=== PATIENT | male | born 1955 | race Caucasian/White ===

== ENCOUNTER → 2023-08-22 10:19 | Outpatient (CLI) | payer MEDICARE, SELFPAY ==
--- NOTE | 2023-08-22 10:22 | DI.RAD.S_ITS ---
PROCEDURE: XR CHEST 2V INDICATIONS: unexplained weight loss, loud murmur, chest congestion TECHNIQUE: 2 views of the chest were acquired. COMPARISON: None. FINDINGS: Surgical changes and devices: None. Lungs and pleura: Chronic bilateral pulmonary interstitial infiltrates present. Pleural spaces clear Mediastinum: Mediastinal contours are normal. Heart size is normal. Bones and chest wall: No suspicious bony abnormalities. Soft tissues appear unremarkable. IMPRESSION: Chronic bilateral pulmonary infiltrates. Primary differential includes atypical infection. Approved by: Walter Horowitz M.D. on 08/22/2023 at 19:41
[2023-08-22 11:43] LABS: Add Manual Diff / Slide Review NO; Basophils Absolute Auto 0 /uL (0-100); Basophils Percent Auto 0.5 % (0-2); Eosinophils Absolute Auto 0 /uL (0-450); Eosinophils Percent Auto 0.4 % (2-4); Hematocrit 22.7 % (41-53); Hemoglobin 7.6 g/dL (13.5-17.5); Lymphocytes Absolute Auto 1800 /uL (1100-4500); Lymphocytes Percent Auto 19.9 % (25-40); Mean Corpuscular HGB Conc 33.7 % (30-36); Mean Corpuscular Hemoglobin 29.5 PG (26-34); Mean Corpuscular Volume 87.4 fL (80-100); Monocytes Absolute Auto 600 /uL (0-900); Monocytes Percent Auto 6.5 % (3-14); Neutrophils Absolute Auto 6500 /uL (1500-7000); Neutrophils Percent Auto 72.7 % (50-75); Platelet Count 66 X10^3/uL (150-400); Red Blood Cell Count 2.59 X10^6/uL (4.5-5.9); Red Cell Distribution Width 16.1 % (11.6-14.8)
[2023-08-22 12:02] LABS: Alanine Aminotransferase 11 IU/L (<50); Albumin 2.5 g/dL (3.5-5.0); Albumin Globulin Ratio 0.6 (1.0-2.8); Alkaline Phosphatase 70 U/L (38-126); Aspartate Aminotransferase 20 IU/L (17-59); BUN Creatinine Ratio 15.6 (6-22); Bilirubin Total 1.3 mg/dL (0.2-1.3); Blood Urea Nitrogen 71 mg/dL (9-20); Calcium 7.9 mg/dL (8.4-10.2); Carbon Dioxide 28 mmol/L (22-32); Chloride 102 mmol/L (98-107); Estimated Glomerular Filt Rate 13 mL/min (>60); Globulin 4.4 g/dL (1.7-4.1); Glucose 120 mg/dL (80-110); HEMOLYSIS < 15 (0-50); Potassium 3.2 mmol/L (3.4-5.1); Sodium 136 mmol/L (137-145); Total Protein 6.9 g/dL (6.3-8.2)
[2023-08-22 12:08] LABS: NT-proBNP (BNP-Adult 18+) 12500 pg/mL (<125)
[2023-08-22 12:27] LABS: TSH w/ Reflex to FT4 1.35 uIU/mL (0.47-4.68)
[2023-08-22 12:29] LABS: Prostate Specific Antigen Scrn 0.315 ng/mL (0.1-4.0)
== END ==
PROVIDERS: Physician Assistant; Referring Provider Nurse Practitioner Family; Visit Provider Nurse Practitioner Family
DX: R91.8 Other nonspecific abnormal finding of lung field (principal); R63.4 Abnormal weight loss; R05.9 Cough, unspecified; Z12.5 Encounter for screening for malignant neoplasm of prostate
CPT/HCPCS: 36415; 71046; 80053; 83880; 84443; 85025; G0103

== ENCOUNTER 2023-08-22 13:13 | Emergency (ER) | payer MEDICARE, SELFPAY ==
[2023-08-22] VITALS (22 sets, daily range): BP systolic 120–147; BP diastolic 66–81; PULSE 77–90; RESP 18–37; TEMP 36.4; O2SAT 83–100; BMI 21.1
--- NOTE | 2023-08-22 13:25 | ED_ITS ---
HPI - General Adult <Gin Fishman MD - Last Filed: 09/13/23 18:00> General Chief complaint: Recheck/Abnormal Lab/Rx Stated complaint: Wt loss, new anemia, high bnp Time Seen by Provider: 08/22/23 13:24 History of Present Illness HPI narrative: 68-year-old gentleman presents with fatigue, weight loss and general malaise. He has not seen a physician in a number of years. Currently on no medications he notes that over the last few months he lost 20 lb but when his realized he was not eating as much because of decreased appetite. When she began to insist that he more food he says that he is gained 10 lb. He reports exertional dyspnea notes that he is having trouble walking up the stairs which is unusual for him. He has not complaining of chest pain. He is found that he has been sleeping on more pillows but did not specifically noticed that until asked. States that he has a chronic cough that has not changed. 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 He notes no nausea vomiting diarrhea. He has had no black stools. He notes that his legs are significantly more edematous and when question response that yes there is a rash that seems to be progressing up his legs. It is painless. He has not been having fevers or chills Related Data Home Medications Medication Instructions Recorded Confirmed acetaminophen 325 mg tablet 325 mg PO PRN PRN pain 09/08/23 09/08/23 amiodarone 400 mg tablet 400 mg PO BID 09/08/23 09/08/23 calcium acetate(phosphat bind) 667 667 mg PO 3XD 09/08/23 09/08/23 mg capsule calcium carbonate 200 mg calcium 500 mg PO PRN PRN Acid Reflux 09/08/23 09/08/23 (500 mg) chewable tablet (Antacid (calcium carbonate)) ceftriaxone 2 gram intravenous 2 g IV DAILY 09/08/23 09/08/23 piggyback furosemide 20 mg tablet 20 mg PO DAILY 09/08/23 09/08/23 metoprolol succinate 25 mg 25 mg PO DAILY 09/08/23 09/08/23 tablet,extended release 24 hr ondansetron 4 mg disintegrating 4 mg PO Q6H PRN Nausea And Vomiting 09/08/23 09/08/23 tablet tamsulosin 0.4 mg capsule 0.4 mg PO DAILY 09/08/23 09/08/23 vitamin B comp no.3-folic acid 1 1 tab PO QPM 09/08/23 09/08/23 mg-vit C 60 mg-biotin 300 mcg tablet ([facility]) Allergies Allergy/AdvReac Type Severity Reaction Status Date / Time No Known Drug Allergies Allergy Verified 08/22/23 13:23 Review of Systems <Gin Fishman MD - Last Filed: 09/13/23 18:00> Review of Systems Narrative: Pertinent positive and negative findings as per HPI Patient History <Gin Fishman MD - Last Filed: 09/13/23 18:00> Medical History (Updated 09/10/23 @ 12:28 by Rosendo Lemos MD) History of transesophageal echocardiography ([facility]) Endocarditis CHF (congestive heart failure) Anemia Social History household members: spouse and children Smoking Status: Never smoker alcohol intake: never Exam <Gin Fishman MD - Last Filed: 09/13/23 18:00> Initial Vital Signs Initial Vital Signs: Vital Signs Temperature 97.6 F 08/22/23 13:23 Pulse Rate 87 08/22/23 13:23 Respiratory Rate 18 08/22/23 13:23 Blood Pressure 138/76 08/22/23 13:23 Pulse Oximetry 100 08/22/23 13:23 Oxygen Delivery Method Room Air 08/22/23 13:23 General: Chronically ill-appearing, cachectic, in no acute distress. Able to give a complete and coherent history. HEENT: Moist mucous membranes, normal sclera with reactive pupils, Neck: + JVD, supple Respiratory: Lungs with minor basilar crackles, no rhonchi, no wheezing, no accessory muscle use Cardiac: Regular rate and rhythm, 5/6 holosystolic murmur with a palpable thrill Abdomen: Soft, scaphoid, nontender, good bowel tones, no flank pain Skin: Petechial rash over lower extremities, nonblanching, nonpruritic Neurologic: Grossly neurologically intact with no obvious asymmetries or abnormalities Extremities: 3+ bilateral lower extremity edema Psych: Cooperative, appropriate insight and affect <Rowdy Nj DO - Last Filed: 08/22/23 21:39> Initial Vital Signs Initial Vital Signs: Vital Signs Temperature 97.6 F 08/22/23 13:23 Pulse Rate 87 08/22/23 13:23 Respiratory Rate 18 08/22/23 13:23 Blood Pressure 138/76 08/22/23 13:23 Pulse Oximetry 100 08/22/23 13:23 Oxygen Delivery Method Room Air 08/22/23 13:23 Course <Gin Fishman MD - Last Filed: 09/13/23 18:00> Orders Ordered: Discontinued Medications Lidocaine HCl (Lidocaine 2% (Glydo) 6 Ml Gel) 6 ml TOP NOW ONE Stop: 08/22/23 18:49 Last Admin: 08/22/23 19:11 Dose: 6 ml Documented By: NORM Vital Signs Vital signs: Vital Signs - 8 hr 08/22/23 14:00 08/22/23 14:00 08/22/23 14:30 Pulse Rate 80 Respiratory Rate 26 H Blood Pressure 120/68 140/77 Pulse Oximetry 100 Oxygen Delivery Method 08/22/23 14:30 08/22/23 14:48 08/22/23 14:48 Pulse Rate 89 85 Respiratory Rate 28 H 27 H Blood Pressure 142/79 H Pulse Oximetry 100 83 L Oxygen Delivery Method 08/22/23 15:00 08/22/23 15:00 08/22/23 15:30 Pulse Rate 83 Respiratory Rate 29 H Blood Pressure 127/66 135/74 Pulse Oximetry 98 Oxygen Delivery Method 08/22/23 15:30 08/22/23 16:00 08/22/23 16:00 Pulse Rate 77 78 Respiratory Rate 24 28 H Blood Pressure 137/73 Pulse Oximetry 100 98 Oxygen Delivery Method 08/22/23 16:30 08/22/23 16:30 08/22/23 17:00 Pulse Rate 84 Respiratory Rate 30 H Blood Pressure 147/77 H 139/73 Pulse Oximetry 100 Oxygen Delivery Method Room Air 08/22/23 17:00 08/22/23 17:30 08/22/23 17:30 Pulse Rate 79 85 Respiratory Rate 26 H 27 H Blood Pressure 138/76 Pulse Oximetry 100 100 Oxygen Delivery Method 08/22/23 18:00 08/22/23 18:00 03/26/24 18:30 Pulse Rate 82 90 Respiratory Rate 30 H 29 H Blood Pressure 144/69 H Pulse Oximetry 99 Oxygen Delivery Method 08/22/23 19:00 08/22/23 19:07 08/22/23 19:07 Pulse Rate 87 84 Respiratory Rate 30 H 24 Blood Pressure 143/71 H Pulse Oximetry 99 99 Oxygen Delivery Method 08/22/23 19:30 08/22/23 19:30 08/22/23 20:00 Pulse Rate 83 83 Respiratory Rate 20 24 Blood Pressure 135/71 Pulse Oximetry 99 100 Oxygen Delivery Method 08/22/23 20:00 08/22/23 20:30 08/22/23 20:30 Pulse Rate 79 Respiratory Rate 20 Blood Pressure 137/72 124/67 Pulse Oximetry 100 Oxygen Delivery Method 08/22/23 21:00 08/22/23 21:00 Pulse Rate 80 Respiratory Rate 24 Blood Pressure 125/67 Pulse Oximetry 99 Oxygen Delivery Method <Rowdy Nj DO - Last Filed: 08/22/23 21:39> Orders Ordered: Discontinued Medications Lidocaine HCl (Lidocaine 2% (Glydo) 6 Ml Gel) 6 ml TOP NOW ONE Stop: 08/22/23 18:49 Last Admin: 08/22/23 19:11 Dose: 6 ml Documented By: NORM Vital Signs Vital signs: Vital Signs - 8 hr 08/22/23 14:00 08/22/23 14:00 08/22/23 14:30 Pulse Rate 80 Respiratory Rate 26 H Blood Pressure 120/68 140/77 Pulse Oximetry 100 Oxygen Delivery Method 08/22/23 14:30 08/22/23 14:48 08/22/23 14:48 Pulse Rate 89 85 Respiratory Rate 28 H 27 H Blood Pressure 142/79 H Pulse Oximetry 100 83 L Oxygen Delivery Method 08/22/23 15:00 08/22/23 15:00 08/22/23 15:30 Pulse Rate 83 Respiratory Rate 29 H Blood Pressure 127/66 135/74 Pulse Oximetry 98 Oxygen Delivery Method 08/22/23 15:30 08/22/23 16:00 08/22/23 16:00 Pulse Rate 77 78 Respiratory Rate 24 28 H Blood Pressure 137/73 Pulse Oximetry 100 98 Oxygen Delivery Method 08/22/23 16:30 08/22/23 16:30 08/22/23 17:00 Pulse Rate 84 Respiratory Rate 30 H Blood Pressure 147/77 H 139/73 Pulse Oximetry 100 Oxygen Delivery Method Room Air 08/22/23 17:00 08/22/23 17:30 08/22/23 17:30 Pulse Rate 79 85 Respiratory Rate 26 H 27 H Blood Pressure 138/76 Pulse Oximetry 100 100 Oxygen Delivery Method 08/22/23 18:00 08/22/23 18:00 08/22/23 18:30 Pulse Rate 82 90 Respiratory Rate 30 H 29 H Blood Pressure 144/69 H Pulse Oximetry 99 Oxygen Delivery Method 08/22/23 19:00 08/22/23 19:07 08/22/23 19:07 Pulse Rate 87 84 Respiratory Rate 30 H 24 Blood Pressure 143/71 H Pulse Oximetry 99 99 Oxygen Delivery Method 08/22/23 19:30 08/22/23 19:30 08/22/23 20:00 Pulse Rate 83 83 Respiratory Rate 20 24 Blood Pressure 135/71 Pulse Oximetry 99 100 Oxygen Delivery Method 08/22/23 20:00 08/22/23 20:30 08/22/23 20:30 Pulse Rate 79 Respiratory Rate 20 Blood Pressure 137/72 124/67 Pulse Oximetry 100 Oxygen Delivery Method 08/22/23 21:00 08/22/23 21:00 Pulse Rate 80 Respiratory Rate 24 Blood Pressure 125/67 Pulse Oximetry 99 Oxygen Delivery Method Medical Decision Making <Gin Fishman MD - Last Filed: 09/13/23 18:00> Lab Data Labs: Lab Results 08/22/23 Range/Units 18:46 Urine Color Brown Urine Appearance Cloudy Urine pH 5.0 (4.5-8.0) Ur Specific [place] 1.010 (1.000-1.035) Urine Protein 1+ H (Negative) Urine Glucose (UA) Negative (Negative) g/dL Urine Ketones Negative (NEGATIVE) Urine Occult Blood 3+ H (Negative) Urine Nitrate Negative (Negative) Urine Bilirubin Negative (NEGATIVE) Urine Urobilinogen 0.2 (0.2) E.U./dL Ur Leukocyte Esterase Negative (NEGATIVE) Urine RBC 10-30/hpf H (0-5/HPF) Urine WBC 1-5/hpf (0-5/HPF) Ur Squamous Epith Cells 0-1 /hpf (0-5/HPF) Urine Bacteria Few (2-10) H (None) Urine Yeast 5-10/hpf H (None) Ur Culture Indicated? Specimen cultured Vol Urine Centrifuged 10ml (spun) Imaging Data CT chest/abd/pelvis withou contrast: Radiologist's Impression: PROCEDURE: CT CHEST ABD PEL WO CON INDICATIONS: weight loss, new heart failure, new renal failure TECHNIQUE: After the administration of oral contrast, 5 mm thick sections acquired from the lung apices to the symphysis pubis. 5 mm thick coronal and sagittal reformats acquired, with additional 7 mm coronal MIP reformats through the lungs. For radiation dose reduction, the following was used: automated exposure control, adjustment of mA and/or kV according to patient size. COMPARISON: None. FINDINGS: Image quality: Diagnostic. CHEST: Lower Neck: No enlarged lymph nodes. Thyroid: No thyroid nodules which require sonographic follow up, per consensus guidelines. Axillae: No enlarged lymph nodes. Chest Wall: Unremarkable. Bones: Unremarkable. Lungs and Pleura: Predominantly peripheral reticular opacities are present bilaterally suggestive of chronic interstitial change/possibly fibrosis. There are superimposed areas of nodular and confluent opacities bilaterally. No priors are available for comparison. No effusions. Heart: Heart size is enlarged. No pericardial effusion. Thoracic Vessels: The aorta and pulmonary arteries demonstrate normal size. Mediastinum and Betsy: No enlarged lymph nodes. However, exam is markedly limited secondary to lack of IV contrast. Esophagus: No wall thickening. Minimal hiatal hernia. ABDOMEN: Liver: Liver measures 17.8 cm. Liver appears coarsened appearance without discrete nodularity. Gallbladder: Gallbladder is contracted limiting evaluation. Biliary ducts: No biliary dilation. Pancreas: No ductal dilation. Spleen: Spleen measures 15.8 cm. Adrenal Glands: No adrenal nodules. Kidneys and Ureters: No hydronephrosis. No solid mass. No complex renal cystic lesion which requires follow up. Stomach and Bowel: Normal colonic caliber, without significant wall thickening. Peritoneum: Significant abdominal pelvic ascites including perihepatic and pe risplenic fluid. No free air. Ventral Wall: No hernia. Abdominal Nodes: No retroperitoneal or mesenteric adenopathy by size criteria. Vessels: Aorta and inferior vena cava are normal in size. PELVIS: Pelvic Organs: Unremarkable. Bladder: Unremarkable. Pelvic Nodes: No enlarged lymph nodes. Miscellaneous: No inguinal hernias are seen. Bones: No aggressive osseous abnormality. IMPRESSION: Markedly limited exam secondary to lack of oral and IV contrast. Chronic interstitial pulmonary disease as described above. Superimposed areas of nodularity/opacities are present. These may represent airspace disease such as pneumonia/atelectasis including atypical infection. Recommend interval follow up after appropriate therapy to document resolution exclude presence of underlying mass lesion of more aggressive etiology. Prominent abdominal and pelvic ascites. Dictated by: Susan Hinojosa M.D. on 08/22/2023 at 15:12 Echocardiogram: Radiologist's Impression: Echocardiogram Report + + :Name: KIA SOTO Study Date: 08/22/2023 Height: 66 in : :[facility] ReadingLocation: Weight: 130 lb : : Gender: Male BSA: 1.7 m2 : :: 1955 Age: 68 yrs BP: 127/66 mmHg: :Reason For Study: NEW CONGESTIVE HEART FAILURE, NEW HEART : :MUMUR : :Ordering Physician: SRAVANTHI, : :GIN Goodrich Performed By: Hedy Oconnell : :Referring: GIN FISHMAN : + + Interpretation Summary The left ventricle is moderately dilated. The ejection fraction is estimated to be 40-45%. Grade II diastolic dysfunction. The left atrium is severely dilated. The right ventricle is normal in size and function. There is prolapse of the posterior mitral valve leaflet(s). There is severe mitral regurgitation. There is mild aortic regurgitation. There is mild tricuspid regurgitation. The right ventricular systolic pressure is estimated to be at least 33 mmHg based on an estimated right atrial pressure of 3 mm Hg. There is a trivial pericardial effusion noted. Left pleurral effusion also noted. Procedure: A two-dimensional transthoracic echocardiogram with color flow and Doppler was performed. The study quality was technically good. There is no prior echocardiogram noted for this patient. The heart rate ranged between 78- 94 bpm during the study. Left Ventricle: The left ventricle is moderately dilated. There is normal left ventricular wall thickness. The ejection fraction is estimated to be 40- 45%. Diastolic parameters suggest a pseudonormalization pattern, consistent with probable elevated filling pressures. Right Ventricle: The right ventricle is normal in size and function. Atria: The left atrium is severely dilated. Right atrial size is normal. There is no Doppler evidence for an interatrial shunt. Mitral Valve: The mitral leaflets appear thickened, hooded, and/or redundant, consistent with myxomatous degeneration. There is prolapse of the posterior mitral valve leaflet(s). There is severe mitral regurgitation. The mitral regurgitant jet is eccentrically directed. Aortic Valve: The aortic valve is trileaflet. The aortic valve opens well. There is no aortic valve stenosis. There is mild aortic regurgitation. Tricuspid Valve: The tricuspid valve is not well visualized, but is grossly normal. There is mild tricuspid regurgitation. The right ventricular systolic pressure is estimated to be at least 33 mmHg based on an estimated right atrial pressure of 3 mm Hg. Pulmonic Valve: The pulmonic valve leaflets are thin and pliable; valve motion is normal. There is mild pulmonic regurgitation. Great Vessels: The aortic root is normal size. The dimensions of the ascending aorta are normal. The IVC is of normal diameter and collapses greater than 50% with a sniff. This suggests a low right atrial pressure of 3 mm Hg. Pericardium/ Pleura There is a trivial pericardial effusion noted. Left pleurral effusion also noted. MMode/2D Measurements & Calculations LVIDd: 6.6 cm LVOT diam: 2.0 cm LVIDs: 4.8 cm Ao root diam: 3.1 cm FS: 26.7 % asc Aorta Diam: 3.6 cm IVSd: 0.85 cm Ao Arch Diam (Prox Trans): 3.2 cm LVPWd: 0.50 cm LV mendes. diameter/BSA (cm/m^2): 3.9 LV sys. diameter/BSA (cm/m^2): 2.9 LA A2 area: 35.8 cm2 RA long axis: 4.8 cm LA A4 area: 27.6 cm2 RA area: 13.1 cm2 LA length (vol): 6.1 cm RA vol: 30.2 ml LA vol: 137.2 ml RA : 18.1 ml/m2 LA vol index: 82.4 ml/m2 IVC diam: 1.3 cm RVD1 (basal): 3.7 cm RVD2 (mid): 3.4 cm TAPSE: 1.7 cm Doppler Measurements & Calculations Ao V2 max: 163.7 cm/sec LVOT Max Helio: 92.1 cm/sec Ao V2 mean: 108.2 cm/sec LV V1 max P.4 mmHg Ao max P.7 mmHg LV V1 VTI: 16.0 cm Ao mean P.4 mmHg TSERING(I,D): 1.7 cm2 Ao V2 VTI: 28.1 cm TSERING(V,D): 1.7 cm2 sev ratio: 0.57 TSERING indexed to BSA (cm^2/m^2): 1.0 MV E max helio: 151.5 cm/sec TR max helio: 271.4 cm/sec MV A max helio: 96.0 cm/sec TR max P.5 mmHg MV E/A: 1.6 PA V2 max: 116.3 cm/sec Med Peak E' Helio: 7.6 cm/sec PA V2 mean: 89.2 cm/sec E/E' med: 20.0 PA mean P.4 mmHg Lat Peak E' Helio: 14.9 cm/sec PA pr(Accel): 32.8 mmHg E/E' lat: 10.2 E/e' average: 15.1 MV dec time: 0.16 sec MVA(VTI): 1.4 cm2 MR ERO: 0.58 cm2 MV V2 mean: 76.9 cm/sec MR PISA: 7.7 cm2 MV mean P.8 mmHg MR flow rate: 358.9 cm3/sec MV V2 VTI: 34.2 cm MR PISA radius: 1.1 cm SV(LVOT): 48.3 ml [facility] Narrative Medical decision making narrative: CC: Fatigue, lower extremity edema, weight loss Complicating co-morbidities: Minimal recent interaction with the medical community Data collected from: patient Medical records reviewed: Records are available Differential considered: Cancer, metastatic cancer, leukemia, heart failure with valve dysfunction Exam documented above, pertinent findings include: Alert, appropriate, cachectic, 5/6 systolic murmur with a palpable thrill, mild bibasilar crackles, significant lower extremity edema with petechiae, no significant abdominal pain or distention Lab Test results independently reviewed as above. Pertinent findings: CBC shows a normal white count, H and H are 7.6 and 22.7 with a normal MCV. RDW is high. Platelets are low at 66 Chemistries show potassium low at 3.2, acute renal failure at 4.5 with a BUN of 7.1 GFR of 13. Calcium is slightly low at 7.9 Parker/AST/ALT/alk-phos are all appropriate TSH is appropriate at 1.35 PSA is normal at 0.315 [place] [address] Independently reviewed EKG: Sinus rhythm at a rate of 90 without ischemic changes. Normal intervals, normal axis Imaging studies independently reviewed: Chest x-ray is consistent with mild cardiomegaly and interstitial fluid/no pleural effusion, consistent with heart failure Echocardiogram obtained in the ER shows an ejection fraction at 40-45% with a dilated left ventricle, prolapse of the posterior mitral valve with severe mitral regurgitation, mild aortic and tricuspid regurgitation. Incidentally noted left pleural effusion. CT chest/abd/pelvis w/o contrast due to the new acute renal failure: Chronic interstitial pulmonary disease with peripheral reticular opacities bilaterally suggestive of chronic interstitial changes/possibly fibrosis. Superimposed areas of nodular and confluent opacities bilaterally no effusions. No pathologic adenopathy, no masses or dramatic abnormalities appreciated within the abdomen aside from significant abdominal and pelvic ascites including perihepatic and perisplenic fluid. There is no free air. Consultations: Discussion with Dr. Rojas, hospitalist regarding initial studies and potential for [facility] admission(patient would very much prefer this) versus need for transfer. Will obtain a stat echocardiogram and CT scan of the chest abdomen pelvis without contrast and discuss findings with him again. But given concern for failure secondary to possible mitral valve acute abnormalities we will need hospital with higher level of care and additional medical consultation services available. 615pm Discussed with Dr Dean, cardiology. Given the renal failure, heart failure and minimal symptoms her recommendations were to continue with no specific intervention at this time until he is admitted to the hospital to which he will be transferred [facility] may have beds available. Spoke with Dr. Hough, Cardiology, who agrees he will consult. Will talk with the hospitalist team for admission Treatments: Rajput catheter secondary to postvoid residual of greater than 500 cc Re-evaluations: Discussion: 1. Acute CHF, BNP >12,000 Not requiring oxygen 2. Severe caroline regurgitation with prolapsed posterior mitral valve 3. acute renal failure with creatinine 4.55. K=3.2 will not need emergent dialysis 4. anemia with thrombocytopenia (WBC=9.0) uncertain etiology. Petechial rash LEs 5. 20lb wt loss last months, with 10lb weight gain (along with presumed CHF e xacerbation, likely all secondary to fluid) 6. BPH with urinary retention, post Rajput catheter placement Will need transfer to facility with cardiology, cardiac surgery, nephrology, and possibly oncology consultation with tele bed. Currently no respiratory support with oxygen saturations 100% on room air, no significant hypotension or pressors. <Rowdy Nj, - Last Filed: 08/22/23 21:39> Lab Data Lab results reviewed: Yes I reviewed the patient's lab results. Labs: Lab Results 08/22/23 Range/Units 18:46 Urine Color Brown Urine Appearance Cloudy Urine pH 5.0 (4.5-8.0) Ur Specific [place] 1.010 (1.000-1.035) Urine Protein 1+ H (Negative) Urine Glucose (UA) Negative (Negative) g/dL Urine Ketones Negative (NEGATIVE) Urine Occult Blood 3+ H (Negative) Urine Nitrate Negative (Negative) Urine Bilirubin Negative (NEGATIVE) Urine Urobilinogen 0.2 (0.2) E.U./dL Ur Leukocyte Esterase Negative (NEGATIVE) Urine RBC 10-30/hpf H (0-5/HPF) Urine WBC 1-5/hpf (0-5/HPF) Ur Squamous Epith Cells 0-1 /hpf (0-5/HPF) Urine Bacteria Few (2-10) H (None) Urine Yeast 5-10/hpf H (None) Ur Culture Indicated? Specimen cultured Vol Urine Centrifuged 10ml (spun) MDM Narrative Medical decision making narrative: CC: Fatigue, lower extremity edema, weight loss Complicating co-morbidities: Minimal recent interaction with the medical community Data collected from: patient Medical records reviewed: Records are available Differential considered: Cancer, metastatic cancer, leukemia, heart failure with valve dysfunction Exam documented above, pertinent findings include: Alert, appropriate, cachectic, 5/6 systolic murmur with a palpable thrill, mild bibasilar crackles, significant lower extremity edema with petechiae, no significant abdominal pain or distention Lab Test results independently reviewed as above. Pertinent findings: CBC shows a normal white count, H and H are 7.6 and 22.7 with a normal MCV. RDW is high. Platelets are low at 66 Chemistries show potassium low at 3.2, acute renal failure at 4.5 with a BUN of 7.1 GFR of 13. Calcium is slightly low at 7.9 Parker/AST/ALT/alk-phos are all appropriate TSH is appropriate at 1.35 PSA is normal at 0.315 [place] [address] Independently reviewed EKG: Sinus rhythm at a rate of 90 without ischemic changes. Normal intervals, normal axis Imaging studies independently reviewed: Chest x-ray is consistent with mild cardiomegaly and interstitial fluid/no pleural effusion, consistent with heart failure Echocardiogram obtained in the ER shows an ejection fraction at 40-45% with a dilated left ventricle, prolapse of the posterior mitral valve with severe mitral regurgitation, mild aortic and tricuspid regurgitation. Incidentally noted left pleural effusion. CT chest/abd/pelvis w/o contrast due to the new acute renal failure: Chronic interstitial pulmonary disease with peripheral reticular opacities bilaterally suggestive of chronic interstitial changes/possibly fibrosis. Superimposed areas of nodular and confluent opacities bilaterally no effusions. No pathologic adenopathy, no masses or dramatic abnormalities appreciated within the abdomen aside from significant abdominal and pelvic ascites including perihepatic and perisplenic fluid. There is no free air. Consultations: Discussion with Dr. Rojas, hospitalist regarding initial studies and potential for [facility] admission(patient would very much prefer this) versus need for transfer. Will obtain a stat echocardiogram and CT scan of the chest abdomen pelvis without contrast and discuss findings with him again. But given concern for failure secondary to possible mitral valve acute abnormalities we will need hospital with higher level of care and additional medical consultation services available. 615pm Discussed with Dr Dean, cardiology. Given the renal failure, heart failure and minimal symptoms her recommendations were to continue with no specific intervention at this time until he is admitted to the hospital to which he will be transferred [facility] beds available. Spoke with Dr. Hough, Cardiology, who agrees he will consult. Will talk with the hospitalist team for admission Treatments: Rajput catheter secondary to postvoid residual of greater than 500 cc Re-evaluations: Discussion: 1. Acute CHF, BNP >12,000 Not requiring oxygen 2. Severe caroline regurgitation with prolapsed posterior mitral valve 3. acute renal failure with creatinine 4.55. K=3.2 will not need emergent dialysis 4. anemia with thrombocytopenia (WBC=9.0) uncertain etiology. Petechial rash LEs 5. 20lb wt loss last months, with 10lb weight gain (along with presumed CHF exacerbation, likely all secondary to fluid) 6. BPH with urinary retention, post Rajput catheter placement Will need transfer to facility with cardiology, cardiac surgery, nephrology, and possibly oncology consultation with tele bed. Currently no respiratory support with oxygen saturations 100% on room air, no significant hypotension or pressors. Dr Nj: Received turned over. Review patient's history and physical and workup up to this point. Patient remains stable but does require transfer to facility with subspecialty care. Discussed the case with Dr. Teixeira hospitalist at [facility] who accepts the patient in transfer. Patient is stable for transport. Critical Care Time <Gin Fishman MD - Last Filed: 09/13/23 18:00> Critical Care Time Critical Care Time: Yes Total Critical Care Time: 47 Attestation: Critical care time is separate from other billable procedures. There is a high probability of a significant, sudden or life-threatening deterioration that requires my full and direct attention, intervention and personal management. This critical care time includes consultation with family and other consulting doctors, review of records, and interpretation of data from labs, EKGs and imaging as well as managements of multisystem organ failure with multiple c onsultations and coordination of care Discharge Plan Departure Patient Disposition: [facility] Clinical Impression: Mitral valve posterior leaflet prolapse, Anemia, BRYANNA (acute kidney injury), Severe mitral regurgitation, Acute CHF (congestive heart failure), Thrombocytopenia, Petechial rash, Abdominal ascites, Recent unexplained weight loss, Acute on chronic urinary retention Prescriptions: No Action amiodarone 400 mg tablet 400 mg PO BID calcium acetate(phosphat bind) 667 mg capsule 667 mg PO 3XD ceftriaxone 2 gram Piggyback 2 g IV DAILY furosemide 20 mg Tablet 20 mg PO DAILY metoprolol succinate 25 mg tablet extended release 24 hr 25 mg PO DAILY Rachel-Shira Rx 1-60-300 mg-mg-mcg tablet 1 tab PO QPM tamsulosin 0.4 mg capsule 0.4 mg PO DAILY acetaminophen 325 mg Tablet 325 mg PO PRN PRN (Reason: pain) calcium carbonate [Antacid (calcium carbonate)] 200 mg calcium (500 mg) Tablet,Chewable 500 mg PO PRN PRN (Reason: Acid Reflux) ondansetron 4 mg Tablet,Disintegrating 4 mg PO Q6H PRN (Reason: Nausea And Vomiting)
--- NOTE | 2023-08-22 14:34 | DI.ECHO.S_ITS ---
[facility]---------[facility] +---------+ : : [address] [place] [address] : : : : [id number] : : : : Phone: [phone]+ Echocardiogram Report + + :Name: KIA SOTO Study Date: 08/22/2023 Height: 66 in : :[facility] ReadingLocation: Weight: 130 lb : : Gender: Male BSA: 1.7 m2 : :: 1955 Age: 68 yrs BP: 127/66 mmHg: :Reason For Study: NEW CONGESTIVE HEART FAILURE, NEW HEART : :MUMUR : :Ordering Physician: SRAVANTHI, : :KYMBERLY Goodrich Performed By: Hedy Oconnell : :Referring: KYMBERLY FISHMAN : + + Interpretation Summary The left ventricle is moderately dilated. The ejection fraction is estimated to be 40-45%. Grade II diastolic dysfunction. The left atrium is severely dilated. The right ventricle is normal in size and function. There is prolapse of the posterior mitral valve leaflet(s). There is severe mitral regurgitation. There is mild aortic regurgitation. There is mild tricuspid regurgitation. The right ventricular systolic pressure is estimated to be at least 33 mmHg based on an estimated right atrial pressure of 3 mm Hg. There is a trivial pericardial effusion noted. Left pleurral effusion also noted. Procedure: A two-dimensional transthoracic echocardiogram with color flow and Doppler was performed. The study quality was technically good. There is no prior echocardiogram noted for this patient. The heart rate ranged between 78- 94 bpm during the study. Left Ventricle: The left ventricle is moderately dilated. There is normal left ventricular wall thickness. The ejection fraction is estimated to be 40- 45%. Diastolic parameters suggest a pseudonormalization pattern, consistent with probable elevated filling pressures. Right Ventricle: The right ventricle is normal in size and function. Atria: The left atrium is severely dilated. Right atrial size is normal. There is no Doppler evidence for an interatrial shunt. Mitral Valve: The mitral leaflets appear thickened, hooded, and/or redundant, consistent with myxomatous degeneration. There is prolapse of the posterior mitral valve leaflet(s). There is severe mitral regurgitation. The mitral regurgitant jet is eccentrically directed. Aortic Valve: The aortic valve is trileaflet. The aortic valve opens well. There is no aortic valve stenosis. There is mild aortic regurgitation. Tricuspid Valve: The tricuspid valve is not well visualized, but is grossly normal. There is mild tricuspid regurgitation. The right ventricular systolic pressure is estimated to be at least 33 mmHg based on an estimated right atrial pressure of 3 mm Hg. Pulmonic Valve: The pulmonic valve leaflets are thin and pliable; valve motion is normal. There is mild pulmonic regurgitation. Great Vessels: The aortic root is normal size. The dimensions of the ascending aorta are normal. The IVC is of normal diameter and collapses greater than 50% with a sniff. This suggests a low right atrial pressure of 3 mm Hg. Pericardium/ Pleura There is a trivial pericardial effusion noted. Left pleurral effusion also noted. MMode/2D Measurements & Calculations LVIDd: 6.6 cm LVOT diam: 2.0 cm LVIDs: 4.8 cm Ao root diam: 3.1 cm FS: 26.7 % asc Aorta Diam: 3.6 cm IVSd: 0.85 cm Ao Arch Diam (Prox Trans): 3.2 cm LVPWd: 0.50 cm LV mendes. diameter/BSA (cm/m^2): 3.9 LV sys. diameter/BSA (cm/m^2): 2.9 LA A2 area: 35.8 cm2 RA long axis: 4.8 cm LA A4 area: 27.6 cm2 RA area: 13.1 cm2 LA length (vol): 6.1 cm RA vol: 30.2 ml LA vol: 137.2 ml RA : 18.1 ml/m2 LA vol index: 82.4 ml/m2 IVC diam: 1.3 cm RVD1 (basal): 3.7 cm RVD2 (mid): 3.4 cm TAPSE: 1.7 cm Doppler Measurements & Calculations Ao V2 max: 163.7 cm/sec LVOT Max Helio: 92.1 cm/sec Ao V2 mean: 108.2 cm/sec LV V1 max P.4 mmHg Ao max P.7 mmHg LV V1 VTI: 16.0 cm Ao mean P.4 mmHg TSERING(I,D): 1.7 cm2 Ao V2 VTI: 28.1 cm TSERING(V,D): 1.7 cm2 sev ratio: 0.57 TSERING indexed to BSA (cm^2/m^2): 1.0 MV E max helio: 151.5 cm/sec TR max helio: 271.4 cm/sec MV A max helio: 96.0 cm/sec TR max P.5 mmHg MV E/A: 1.6 PA V2 max: 116.3 cm/sec Med Peak E' Helio: 7.6 cm/sec PA V2 mean: 89.2 cm/sec E/E' med: 20.0 PA mean P.4 mmHg Lat Peak E' Helio: 14.9 cm/sec PA pr(Accel): 32.8 mmHg E/E' lat: 10.2 E/e' average: 15.1 MV dec time: 0.16 sec MVA(VTI): 1.4 cm2 MR ERO: 0.58 cm2 MV V2 mean: 76.9 cm/sec MR PISA: 7.7 cm2 MV mean P.8 mmHg MR flow rate: 358.9 cm3/sec MV V2 VTI: 34.2 cm MR PISA radius: 1.1 cm SV(LVOT): 48.3 ml Reading Physician:04:38 PM
--- NOTE | 2023-08-22 14:34 | DI.CT.S_ITS ---
PROCEDURE: CT CHEST ABD PEL WO CON INDICATIONS: weight loss, new heart failure, new renal failure TECHNIQUE: After the administration of oral contrast, 5 mm thick sections acquired from the lung apices to the symphysis pubis. 5 mm thick coronal and sagittal reformats acquired, with additional 7 mm coronal MIP reformats through the lungs. For radiation dose reduction, the following was used: automated exposure control, adjustment of mA and/or kV according to patient size. COMPARISON: None. FINDINGS: Image quality: Diagnostic. CHEST: Lower Neck: No enlarged lymph nodes. Thyroid: No thyroid nodules which require sonographic follow up, per consensus guidelines. Axillae: No enlarged lymph nodes. Chest Wall: Unremarkable. Bones: Unremarkable. Lungs and Pleura: Predominantly peripheral reticular opacities are present bilaterally suggestive of chronic interstitial change/possibly fibrosis. There are superimposed areas of nodular and confluent opacities bilaterally. No priors are available for comparison. No effusions. Heart: Heart size is enlarged. No pericardial effusion. Thoracic Vessels: The aorta and pulmonary arteries demonstrate normal size. Mediastinum and Betsy: No enlarged lymph nodes. However, exam is markedly limited secondary to lack of IV contrast. Esophagus: No wall thickening. Minimal hiatal hernia. ABDOMEN: Liver: Liver measures 17.8 cm. Liver appears coarsened appearance without discrete nodularity. Gallbladder: Gallbladder is contracted limiting evaluation. Biliary ducts: No biliary dilation. Pancreas: No ductal dilation. Spleen: Spleen measures 15.8 cm. Adrenal Glands: No adrenal nodules. Kidneys and Ureters: No hydronephrosis. No solid mass. No complex renal cystic lesion which requires follow up. Stomach and Bowel: Normal colonic caliber, without significant wall thickening. Peritoneum: Significant abdominal pelvic ascites including perihepatic and perisplenic fluid. No free air. Ventral Wall: No hernia. Abdominal Nodes: No retroperitoneal or mesenteric adenopathy by size criteria. Vessels: Aorta and inferior vena cava are normal in size. PELVIS: Pelvic Organs: Unremarkable. Bladder: Unremarkable. Pelvic Nodes: No enlarged lymph nodes. Miscellaneous: No inguinal hernias are seen. Bones: No aggressive osseous abnormality. IMPRESSION: Markedly limited exam secondary to lack of oral and IV contrast. Chronic interstitial pulmonary disease as described above. Superimposed areas of nodularity/opacities are present. These may represent airspace disease such as pneumonia/atelectasis including atypical infection. Recommend interval follow up after appropriate therapy to document resolution exclude presence of underlying mass lesion of more aggressive etiology. Prominent abdominal and pelvic ascites. Dictated by: Susan Hinojosa M.D. on 08/22/2023 at 15:12 Approved by: Susan Hinojosa M.D. on 08/22/2023 at 15:18
--- NOTE | 2023-08-22 18:19 | PC.NURSE ---
Called [facility], spoke with Ryan about transfer. Beds are tight. Not cesar Called [facility], spoke to Sherrie, will call back. Called [facility], spoke with Raegan, will call back.
[2023-08-22 18:53] LABS: Bilirubin Urine UA NEGATIVE (NEGATIVE); Glucose Urine UA NEGATIVE (Negative); Ketones Urine UA NEGATIVE (NEGATIVE); Leukocyte Esterase Urine UA NEGATIVE (NEGATIVE); Nitrite Urine UA NEGATIVE (Negative); Occult Blood Urine UA 3+ (Negative); Protein Urine UA 1+ (Negative); Urobilinogen Urine UA 0.2 E.U./dL (0.2)
[2023-08-22 18:55] LABS: Appearance Urine UA CLOUDY; Color Urine UA BROWN
[2023-08-22 19:06] LABS: Bacteria Urine Few (2-10); RBC Urine 10-30/HPF (0-5/HPF); Squamous Epithelial Cell Urine 0-1 /HPF (0-5/HPF); Urine Volume 10mL (spun); WBC Urine 1-5/HPF (0-5/HPF)
[2023-08-22 19:07] LABS: Culture Indicated Urine Specimen Cultured
[2023-08-22] MEDS: LIDOCAINE 2% (GLYDO) 6 ML GEL TOP (19:11)
== END 2023-08-22 22:28 | disposition short-term general hospital (02) ==
PROVIDERS: Emergency Medicine; Emergency Provider Emergency Medicine
DX: I34.1 Nonrheumatic mitral (valve) prolapse (principal); N17.9 Acute kidney failure, unspecified; I34.0 Nonrheumatic mitral (valve) insufficiency; D69.6 Thrombocytopenia, unspecified; R63.4 Abnormal weight loss; Z68.21 Body mass index [BMI] 21.0-21.9, adult; R33.9 Retention of urine, unspecified; I50.41 Acute combined systolic (congestive) and diastolic (congestive) heart failure; R18.8 Other ascites; R05.9 Cough, unspecified; Z12.5 Encounter for screening for malignant neoplasm of prostate; R91.8 Other nonspecific abnormal finding of lung field
CPT/HCPCS: 36415; 51702; 51798; 71046; 71250; 74176; 80053; 81001; 83880; 84443; 85025; 87086; 93005; 93306; 99281; 99284; G0103

== ENCOUNTER → 2023-09-05 11:55 | Outpatient (CLI) | payer MEDICARE, SELFPAY ==
[2023-09-05 15:33] LABS: BUN Creatinine Ratio 21.4 (6-22); Blood Urea Nitrogen 56 mg/dL (9-20); Calcium 8.6 mg/dL (8.4-10.2); Carbon Dioxide 30 mmol/L (22-32); Chloride 101 mmol/L (98-107); Estimated Glomerular Filt Rate 26 mL/min (>60); Glucose 117 mg/dL (80-110); HEMOLYSIS < 15 (0-50); Potassium 4.5 mmol/L (3.4-5.1); Sodium 134 mmol/L (137-145)
[2023-09-07 08:11] LABS: Complement C3 53 mg/dL (82-167)
[2023-09-10 16:15] LABS: ANA Screen, IFA Negative (.)
[2023-09-11 13:46] LABS: Antimyeloperoxidase Antibodies <0.2 units (0.0-0.9); Cytoplasmic C-ANCA 1:40 titer (Neg:<1:20); Perinuclear P-ANCA <1:20 titer (Neg:<1:20)
== END ==
PROVIDERS: PCP Family Medicine; Referring Provider Student in an Organized Health Care Education/Training Program; Visit Provider Student in an Organized Health Care Education/Training Program
DX: L93.2 Other local lupus erythematosus (principal); M31.30 Wegener's granulomatosis without renal involvement; N05.9 Unspecified nephritic syndrome with unspecified morphologic changes; D89.89 Other specified disorders involving the immune mechanism, not elsewhere classified; N30.00 Acute cystitis without hematuria
CPT/HCPCS: 36415; 80048; 86038; 86160; 86256

== ENCOUNTER 2023-09-08 00:08 | Inpatient (IN) | payer MEDICARE, SELFPAY ==
[2023-09-08] VITALS (58 sets, daily range): BP systolic 94–158; BP diastolic 50–74; PULSE 57–96; RESP 10–38; TEMP 31–37.2; O2SAT 91–100; BMI 20.5; BMI 23.2; BMI 20.6
--- NOTE | 2023-09-08 00:17 | ED.GENADULT ---
HPI - General Adult General Chief complaint: Shortness of Breath/Dyspnea Stated complaint: on cpap, sob Time Seen by Provider: 09/08/23 00:12 Source: patient, family and EMS Mode of arrival: EMS Limitations: no limitations History of Present Illness HPI narrative: Patient is a 68-year-old male. Very little information regarding history. He was seen here in the emergency department several weeks ago and subsequently transferred for multi organ system issues. We were unable to obtain records in a timely manner from [facility] due to the time of day. It was reported that the patient woke up from his sleep acutely short of breath. When EMS arrived they stated that they found the patient's supine. Found him hypoxic with an oxygen saturation less than 50. No chest pain. He was placed on CPAP. Was given a DuoNeb. His oxygen saturations improved to the mid upper 80s on this intervention. Upon arrival here in the emergency department somewhat limited HPI from the patient. He denied chest pain. Does have some lower extremity swelling. He has a Rajput catheter in place. He has a central line in his right upper chest. It is reported that he has been getting daily IV antibiotics. I am unsure exactly why this is occurring. Unsure if the patient is a smoker. Unsure if he is on diuretics. No medicine list with the patient. He did come from home. Related Data Home Medications Medication Instructions Recorded Confirmed acetaminophen 325 mg tablet 325 mg PO PRN PRN pain 09/08/23 09/08/23 amiodarone 400 mg tablet 400 mg PO BID 09/08/23 09/08/23 calcium acetate(phosphat bind) 667 667 mg PO 3XD 09/08/23 09/08/23 mg capsule calcium carbonate 200 mg calcium 500 mg PO PRN PRN Acid Reflux 09/08/23 09/08/23 (500 mg) chewable tablet (Antacid (calcium carbonate)) ceftriaxone 2 gram intravenous 2 g IV DAILY 09/08/23 09/08/23 piggyback furosemide 20 mg tablet 20 mg PO DAILY 09/08/23 09/08/23 metoprolol succinate 25 mg 25 mg PO DAILY 09/08/23 09/08/23 tablet,extended release 24 hr ondansetron 4 mg disintegrating 4 mg PO Q6H PRN Nausea And Vomiting 09/08/23 09/08/23 tablet tamsulosin 0.4 mg capsule 0.4 mg PO DAILY 09/08/23 09/08/23 vitamin B comp no.3-folic acid 1 1 tab PO QPM 09/08/23 09/08/23 mg-vit C 60 mg-biotin 300 mcg tablet ([facility]) Allergies Allergy/AdvReac Type Severity Reaction Status Date / Time No Known Drug Allergies Allergy Verified 08/22/23 13:23 Review of Systems Review of Systems Narrative: See HPI. Review of systems very limited given his presentation. Patient History Social History Smoking Status: Never smoker Smoking Status: Never smoker Substance Use Type: does not use Exam Initial Vital Signs Initial Vital Signs: Vital Signs Fraction of Inspired Oxygen 100 09/08/23 00:14 Const General: cooperative, in distress and ill appearing HENMT Head: normal to inspection and normocephalic Chest Other: Central line right upper chest Resp Effort & Inspection: respiratory distress and tachypneic Auscultation: rhonchi and wheezes Other: On CPAP by EMS Cardio Rate: regular rate Rhythm: regular rhythm Heart Sounds: murmur GI Inspection: normal to inspection Skin General: no rashes or lesions noted Neuro General: patient awake and moves all extremities Other: Patient is able to follow commands Extrem General: capillary refill normal Course Orders Ordered: ED Orders 09/08/23 00:10 BiPAP Ventilatory Support RT PROTOCOL 09/08/23 00:15 Complete Blood Count AUTO DIFF Stat Comprehensive Metabolic Panel Stat Lactate (Lactic Acid) Stat Lipase Stat Magnesium Stat NT-proBNP (BNP-Adult 18+) Stat PTT Partial Thromboplastin Drew Stat Procalcitonin Stat Prothrombin Time INR Stat Troponin & CK Cardiac Panel Stat 09/08/23 00:16 XR chest 1V Stat EKG-12 Lead Stat 09/08/23 00:30 Blood Culture Stat 09/08/23 01:05 Urinalysis and Microscopic Stat 09/08/23 01:16 ABG [Arterial Blood Gas] Stat 09/08/23 02:20 Respiratory Panel (Film Array) Stat 09/08/23 02:30 Troponin & CK Cardiac Panel Stat Sodium Chloride (Normal Saline 0.9%) 1,000 mls @ 100 mls/hr IV CONT SHERIF Last Admin: 09/08/23 02:27 Dose: 100 mls/hr Documented By: MELODY Discontinued Medications Albuterol (Albuterol 2.5 Mg/3 Ml Neb (Adult)) 20 mg INH NOW ONE Stop: 09/08/23 00:16 Last Admin: 09/08/23 00:24 Dose: 20 mg Documented By: PAULA Ceftriaxone Sodium 1,000 mg/ (Sodium Chloride) 100 mls @ 200 mls/hr IV NOW ONE Stop: 09/08/23 00:49 Last Infusion: 09/08/23 01:39 Dose: Infused Documented By: Admin: 09/08/23 01:03 Dose: 200 mls/hr Documented By: MELODY Furosemide 60 mg/ Sodium (Chloride) 56 mls @ 112 mls/hr IV NOW ONE Stop: 09/08/23 01:07 Last Infusion: 09/08/23 01:48 Dose: Infused Documented By: Admin: 09/08/23 01:18 Dose: 112 mls/hr Documented By: MELODY Sodium Chloride (Normal Saline 0.9%) 250 mls @ 1,000 mls/hr IV BOLUS ONE Stop: 09/08/23 01:59 Last Infusion: 09/08/23 02:26 Dose: Infused Documented By: Admin: 09/08/23 02:03 Dose: 1,000 mls/hr Documented By: MELODY Methylprednisolone (Methylprednisolone 125 Mg/2 Ml Vial) 125 mg IV NOW ONE Stop: 09/08/23 00:18 Last Admin: 09/08/23 00:32 Dose: 125 mg Documented By: GIDEON Vital Signs Vital signs: Vital Signs - 8 hr 09/08/23 00:14 09/08/23 00:17 09/08/23 00:23 Temperature 98.9 F Pulse Rate 93 H 94 H Respiratory Rate 34 H 34 H Blood Pressure 158/74 H Pulse Oximetry 98 98 Oxygen Delivery Method BiPAP BiPAP Oxygen Flow Rate 60 Fraction of Inspired Oxygen 100 09/08/23 00:30 09/08/23 00:30 09/08/23 00:43 Temperature Pulse Rate 80 Respiratory Rate 29 H Blood Pressure 136/70 Pulse Oximetry 100 Oxygen Delivery Method BiPAP Oxygen Flow Rate Fraction of Inspired Oxygen 55 09/08/23 00:45 09/08/23 00:45 09/08/23 01:00 Temperature Pulse Rate 81 82 Respiratory Rate 37 H 38 H Blood Pressure 133/68 Pulse Oximetry 100 100 Oxygen Delivery Method BiPAP Oxygen Flow Rate Fraction of Inspired Oxygen 09/08/23 01:00 09/08/23 01:15 09/08/23 01:15 Temperature Pulse Rate 83 Respiratory Rate 38 H Blood Pressure 125/65 116/58 L Pulse Oximetry 100 Oxygen Delivery Method BiPAP Oxygen Flow Rate Fraction of Inspired Oxygen 09/08/23 01:25 09/08/23 01:25 09/08/23 01:30 Temperature Pulse Rate 83 Respiratory Rate 36 H Blood Pressure Pulse Oximetry 100 99 Oxygen Delivery Method BiPAP BiPAP Oxygen Flow Rate Fraction of Inspired Oxygen 30 09/08/23 01:30 09/08/23 01:45 09/08/23 01:45 Temperature Pulse Rate 84 Respiratory Rate 34 H Blood Pressure 108/59 L 98/50 L Pulse Oximetry 98 Oxygen Delivery Method BiPAP Oxygen Flow Rate Fraction of Inspired Oxygen 09/08/23 02:00 09/08/23 02:00 09/08/23 02:15 Temperature Pulse Rate 84 83 Respiratory Rate 32 H 33 H Blood Pressure 106/57 L Pulse Oximetry 99 99 Oxygen Delivery Method BiPAP BiPAP Oxygen Flow Rate Fraction of Inspired Oxygen 09/08/23 02:15 09/08/23 02:30 09/08/23 02:30 Temperature Pulse Rate 84 Respiratory Rate 32 H Blood Pressure 94/50 L 98/53 L Pulse Oximetry 98 Oxygen Delivery Method BiPAP Oxygen Flow Rate Fraction of Inspired Oxygen 09/08/23 02:45 09/08/23 02:45 09/08/23 03:00 Temperature Pulse Rate 83 84 Respiratory Rate 29 H 30 H Blood Pressure 97/52 L Pulse Oximetry 98 98 Oxygen Delivery Method BiPAP BiPAP Oxygen Flow Rate Fraction of Inspired Oxygen 09/08/23 03:00 09/08/23 03:15 Temperature Pulse Rate Respiratory Rate Blood Pressure 101/54 L Pulse Oximetry 93 Oxygen Delivery Method Nasal Cannula Oxygen Flow Rate 3 Fraction of Inspired Oxygen Medical Decision Making Medical Records Medical records reviewed: Yes I reviewed the patient's medical records. Lab Data Lab results reviewed: Yes I reviewed the patient's lab results. 09/08/23 00:15 09/08/23 00:15 Labs: Lab Results 09/08/23 09/08/23 09/08/23 Range/Units 00:15 01:05 01:16 WBC 20.4 H (4.5-11.0) X10^3/uL RBC 2.61 L (4.5-5.9) X10^6/uL Hgb 8.0 L (13.5-17.5) g/dL Hct 24.4 L (41-53) % MCV 93.3 (80-100) fL MCH 30.7 (26-34) PG MCHC 32.9 (30-36) % RDW 20.6 H (11.6-14.8) % Plt Count 176 (150-400) X10^3/uL Neut % (Auto) 81.7 H (50-75) % Lymph % (Auto) 8.4 L (25-40) % Creek % (Auto) 6.3 (3-14) % Eos % (Auto) 2.5 (2-4) % Baso % (Auto) 1.1 (0-2) % Neut # (Auto) 36331 H (9732-5221) /uL Lymph # (Auto) 1700 (2974-5372) /uL Creek # (Auto) 1300 H (0-900) /uL Eos # (Auto) 500 H (0-450) /uL Baso # (Auto) 200 H (0-100) /uL RBC Morphology See below Anisocytosis 1+ H PT 12.7 H (9.4-12.5) SECONDS INR 1.1 (0.9-1.3) APTT 29 (25.1-36.5) SECONDS ABG Sample Site Right radial ABG pH 7.46 H (7.35-7.45) ABG pCO2 38.4 (35-45) mmHg ABG pO2 246 H (80-100) mmHg ABG HCO3 27 (23-27) mmol/L ABG Total CO2 28 H (23-27) mmol/L ABG O2 Saturation 100 (95-100) % ABG Base Excess 3.0 (-2-3) mmol/L FiO2 55 Sodium 134 L (137-145) mmol/L Potassium 4.8 (3.4-5.1) mmol/L Chloride 102 (98-107) mmol/L Carbon Dioxide 27 (22-32) mmol/L BUN 55 H (9-20) mg/dL Creatinine 2.60 H (0.66-1.25) mg/dL Estimated GFR 26 L (>60) mL/min BUN/Creatinine Ratio 21.2 (6-22) Glucose 112 H (80-110) mg/dL Lactate 2.9 H (0.7-2.1) mmol/L Calcium 8.5 (8.4-10.2) mg/dL Magnesium 1.6 (1.6-2.3) mg/dL Total Bilirubin 0.5 (0.2-1.3) mg/dL AST 31 (17-59) IU/L ALT 17 (<50) IU/L Alkaline Phosphatase 73 (38-126) U/L Total Creatine Kinase 27 L (55-170) U/L Troponin I 0.065 H (0.01-0.034) ng/mL NT-Pro-B Natriuret Pep 7610 H (<125) pg/mL Total Protein 6.7 (6.3-8.2) g/dL Albumin 2.7 L (3.5-5.0) g/dL Globulin 4.0 (1.7-4.1) g/dL Albumin/Globulin Ratio 0.7 L (1.0-2.8) Lipase 210 (23-300) U/L Procalcitonin 0.68 H (<0.5) ng/mL Urine Color Yellow Urine Appearance Clear Urine pH 5.5 (4.5-8.0) Ur Specific [place] 1.010 (1.000-1.035) Urine Protein Trace H (Negative) Urine Glucose (UA) Negative (Negative) g/dL Urine Ketones Negative (NEGATIVE) Urine Occult Blood 3+ H (Negative) Urine Nitrate Negative (Negative) Urine Bilirubin Negative (NEGATIVE) Urine Urobilinogen 0.2 (0.2) E.U./dL Ur Leukocyte Esterase Negative (NEGATIVE) Urine RBC 30-100/hpf H (0-5/HPF) Urine WBC 0-1/hpf (0-5/HPF) Ur Squamous Epith Cells 0-1 /hpf (0-5/HPF) Ur Transition Epith Cell 0-1/hpf (0-5/HPF) Urine Bacteria Occasional (0-1) (None) Granular Casts 0-1/lpf (None) Ur Culture Indicated? Cult not indicated Vol Urine Centrifuged 10ml (spun) Chlamy pneumoniae PCR (Not Detect) Adenovirus (PCR) (Not Detect) B.parapertussis DNA PCR (Not Detecte) Coronavirus OC43 (PCR) (Not Detect) Coronavirus HKU1 (PCR) (Not Detect) Coronavirus 229E (PCR) (Not Detect) SARS-CoV-2 (PCR) (Not Detecte) Coronavirus NL63 (PCR) (Not Detect) Human Metapneumovir PCR (Not Detect) Influenza Type A (PCR) (Not Detect) Influenza Type B (PCR) (Not Detect) M. pneumoniae (PCR) (Not Detect) Parainfluenza 1 (PCR) (Not Detect) Parainfluenza 2 (PCR) (Not Detect) Parainfluenza 3 (PCR) (Not Detect) Parainfluenza 4 (PCR) (Not Detect) RSV (PCR) (Not Detect) Entero/Rhino (PCR) (Not Detect) 09/08/23 09/08/23 09/08/23 Range/Units 02:20 02:30 02:40 WBC (4.5-11.0) X10^3/uL RBC (4.5-5.9) X10^6/uL Hgb (13.5-17.5) g/dL Hct (41-53) % MCV (80-100) fL MCH (26-34) PG MCHC (30-36) % RDW (11.6-14.8) % Plt Count (150-400) X10^3/uL Neut % (Auto) (50-75) % Lymph % (Auto) (25-40) % Creek % (Auto) (3-14) % Eos % (Auto) (2-4) % Baso % (Auto) (0-2) % Neut # (Auto) (5202-7400) /uL Lymph # (Auto) (3556-5167) /uL Creek # (Auto) (0-900) /uL Eos # (Auto) (0-450) /uL Baso # (Auto) (0-100) /uL RBC Morphology Anisocytosis PT (9.4-12.5) SECONDS INR (0.9-1.3) APTT (25.1-36.5) SECONDS ABG Sample Site ABG pH (7.35-7.45) ABG pCO2 (35-45) mmHg ABG pO2 (80-100) mmHg ABG HCO3 (23-27) mmol/L ABG Total CO2 (23-27) mmol/L ABG O2 Saturation (95-100) % ABG Base Excess (-2-3) mmol/L FiO2 Sodium (137-145) mmol/L Potassium (3.4-5.1) mmol/L Chloride (98-107) mmol/L Carbon Dioxide (22-32) mmol/L BUN (9-20) mg/dL Creatinine (0.66-1.25) mg/dL Estimated GFR (>60) mL/min BUN/Creatinine Ratio (6-22) Glucose (80-110) mg/dL Lactate 1.3 (0.7-2.1) mmol/L Calcium (8.4-10.2) mg/dL Magnesium (1.6-2.3) mg/dL Total Bilirubin (0.2-1.3) mg/dL AST (17-59) IU/L ALT (<50) IU/L Alkaline Phosphatase (38-126) U/L Total Creatine Kinase 23 L (55-170) U/L Troponin I 0.061 H (0.01-0.034) ng/mL NT-Pro-B Natriuret Pep (<125) pg/mL Total Protein (6.3-8.2) g/dL Albumin (3.5-5.0) g/dL Globulin (1.7-4.1) g/dL Albumin/Globulin Ratio (1.0-2.8) Lipase (23-300) U/L Procalcitonin (<0.5) ng/mL Urine Color Urine Appearance Urine pH (4.5-8.0) Ur Specific [place] (1.000-1.035) Urine Protein (Negative) Urine Glucose (UA) (Negative) g/dL Urine Ketones (NEGATIVE) Urine Occult Blood (Negative) Urine Nitrate (Negative) Urine Bilirubin (NEGATIVE) Urine Urobilinogen (0.2) E.U./dL Ur Leukocyte Esterase (NEGATIVE) Urine RBC (0-5/HPF) Urine WBC (0-5/HPF) Ur Squamous Epith Cells (0-5/HPF) Ur Transition Epith Cell (0-5/HPF) Urine Bacteria (None) Granular Casts (None) Ur Culture Indicated? Vol Urine Centrifuged Chlamy pneumoniae PCR Not detected (Not Detect) Adenovirus (PCR) Not detected (Not Detect) B.parapertussis DNA PCR Not detected (Not Detecte) Coronavirus OC43 (PCR) Not detected (Not Detect) Coronavirus HKU1 (PCR) Not detected (Not Detect) Coronavirus 229E (PCR) Not detected (Not Detect) SARS-CoV-2 (PCR) Not detected (Not Detecte) Coronavirus NL63 (PCR) Not detected (Not Detect) Human Metapneumovir PCR Not detected (Not Detect) Influenza Type A (PCR) Not detected (Not Detect) Influenza Type B (PCR) Not detected (Not Detect) M. pneumoniae (PCR) Not detected (Not Detect) Parainfluenza 1 (PCR) Not detected (Not Detect) Parainfluenza 2 (PCR) Not detected (Not Detect) Parainfluenza 3 (PCR) Not detected (Not Detect) Parainfluenza 4 (PCR) Not detected (Not Detect) RSV (PCR) Not detected (Not Detect) Entero/Rhino (PCR) Not detected (Not Detect) Imaging Data Chest x-ray: Radiologist's Impression: PROCEDURE: XR CHEST 1V INDICATIONS: SOB TECHNIQUE: One view of the chest was acquired. COMPARISON: [facility], CT, CT CHEST ABD PEL WO CON, 08/22/2023, 14:40. [facility], CR, XR CHEST 2V, 08/22/2023, 10:38. FINDINGS: Surgical changes and devices: None. Lungs and pleura: Diffuse airspace opacities bilaterally. No pleural effusions or pneumothorax. Mediastinum: Mediastinal contours appear normal. Heart size is moderately increased. Bones and chest wall: No suspicious bony lesions. Overlying soft tissues appear unremarkable. IMPRESSION: Moderate cardiomegaly and diffuse airspace opacities, likely secondary to congestive heart failure. Superimposed pneumonia cannot be excluded. ECG Data Attestation: I personally reviewed and interpreted this ECG as follows: Interpretation: Sinus rhythm Ventricular rate 84 Normal axis QRS 1-0 milliseconds Normal QTC Nonspecific ST T wave changes MDM Narrative Medical decision making narrative: Patient arrived in respiratory distress. Is on CPAP receiving a nebulizer by EMS. Oxygen saturations were in the mid upper 80s. He was switched to our BiPAP machine. Patient tolerated this very well. We continued with a continuous nebulizer. Once he was fitted with our BiPAP machine his oxygen saturations were in the mid to upper 90s. Patient does have a chest x-ray that shows either multifocal pneumonia or CHF. His BNP is greater than 7000 which is somewhat improved from the BNP when he was here several weeks ago which is more in the 12,000 range. He does have a white count of 20 but he has also been receiving antibiotics on a daily basis for unknown reason although there was some question as to whether or not he has a endocarditis. Patient was given Rocephin. Blood cultures were obtained. During his time here in the emergency department his symptoms actually improved to the point we could remove him from the BiPAP machine. Still requiring 2 L of oxygen by nasal cannula. Has lung sounds are actually improving. He has a Rajput catheter in place and has been diuresing. He stated that the Rajput catheter has been in place since he was here in our emergency department. Apparently it was a very difficult placement because of a large prostate and the decision was made throughout his hospital stay is that the Rajput catheter would remain in place. He was able to tell us that he was receiving antibiotics on a daily basis because of an infection. Once he was removed from the BiPAP he was able to tell us that he has not having chest pain. No abdominal pain. He states that the shortness of breath came on fairly suddenly and woke him from sleep. He does report that he feels much better. I was able to talk with [facility] and [facility]. They were unable to send us any medical records due to the time of day. I was able to talk with the hospitalist. She was able to read discharge summary. During his time at [facility] he was diagnosed with heart failure although she states that this was assume that it was his tachy arrhythmia. Recommendations for a left and right heart catheterization and clipping of severe mitral regurgitation and a Watchman however cardiology/Cardiothoracic surgery stated that he was not a candidate for this because he was found to be bacteremic and had ?subacute endocarditis? he was also noted that he was not sent home on any diuretics although yesterday he saw a urologist who prescribed him Lasix but he is yet to take this medication. Hospitalist that [facility] hospitalist stated that since the patient's kidney function today is baseline, that cardiology/Cardiothoracic surgery were not going to perform any interventions until he received antibiotics until the beginning of next month that there was no clear indication for transfer. We are able to manage BiPAP and diurese here at this facility. There was also no bed availability at [facility]. Decision was made to continue to treat here at this facility unless patient's condition declined. We were able to remove him from the BiPAP here in the emergency department. He has diuresed well. I did discuss the case with Dr. Ray on-call for hospitalist service who will admit for further evaluation and treatment. I anticipate that with further diuresis the patient will continue to improve and most likely be able to be discharged home. [facility] stated that if the patient's condition declined they would be happy to accept the patient in transfer. I discussed all this with the patient and his family at bedside. They expressed understanding and agreement with plan. Critical Care Time Critical Care Time Critical Care Time: Yes Total Critical Care Time: 35 Attestation: The high probability of a clinically significant, sudden or life threatening deterioration of the [respiratory] system(s) required my full and direct attention, intervention and personal management. The aggregate critical care time was [35] minutes. This time is in addition to time spent performing reported procedures but includes the following: [x] Data Review and interpretation [x] Patient assessment and monitoring of vital signs [x] Documentation [x] Medication orders and management Discharge Plan Departure Patient Disposition: Admitted as Observation Clinical Impression: CHF (congestive heart failure) Admit Date/Time: 09/08/23 03:25 Admit Provider: Rowdy Chin
[2023-09-08] MEDS: ALBUTEROL 2.5 MG/3 ML NEB (ADULT) 20 MG INH (00:24)
[2023-09-08] MEDS: methylPREDNISolone 125 MG/2 ML VIAL IV (00:32)
[2023-09-08 00:36] LABS: INR 1.1 (0.9-1.3); Prothrombin Time 12.7 SECONDS (9.4-12.5)
[2023-09-08 00:39] LABS: PTT Partial Thromboplastin Tim 29 SECONDS (25.1-36.5)
[2023-09-08 00:42] LABS: Alanine Aminotransferase 17 IU/L (<50); Albumin 2.7 g/dL (3.5-5.0); Albumin Globulin Ratio 0.7 (1.0-2.8); Alkaline Phosphatase 73 U/L (38-126); Aspartate Aminotransferase 31 IU/L (17-59); BUN Creatinine Ratio 21.2 (6-22); Bilirubin Total 0.5 mg/dL (0.2-1.3); Blood Urea Nitrogen 55 mg/dL (9-20); Calcium 8.5 mg/dL (8.4-10.2); Carbon Dioxide 27 mmol/L (22-32); Chloride 102 mmol/L (98-107); Creatine Kinase 27 U/L (55-170); Estimated Glomerular Filt Rate 26 mL/min (>60); Glucose 112 mg/dL (80-110); HEMOLYSIS < 15 (0-50); Lactate (Lactic Acid) 2.9 mmol/L (0.7-2.1); Lipase 210 U/L (23-300); Magnesium 1.6 mg/dL (1.6-2.3); Potassium 4.8 mmol/L (3.4-5.1); Sodium 134 mmol/L (137-145); Total Protein 6.7 g/dL (6.3-8.2)
[2023-09-08 00:45] LABS: Add Manual Diff / Slide Review NO; Basophils Absolute Auto 200 /uL (0-100); Basophils Percent Auto 1.1 % (0-2); Eosinophils Absolute Auto 500 /uL (0-450); Eosinophils Percent Auto 2.5 % (2-4); Hematocrit 24.4 % (41-53); Lymphocytes Absolute Auto 1700 /uL (1100-4500); Lymphocytes Percent Auto 8.4 % (25-40); Mean Corpuscular HGB Conc 32.9 % (30-36); Mean Corpuscular Hemoglobin 30.7 PG (26-34); Mean Corpuscular Volume 93.3 fL (80-100); Monocytes Absolute Auto 1300 /uL (0-900); Monocytes Percent Auto 6.3 % (3-14); Neutrophils Absolute Auto 16600 /uL (1500-7000); Neutrophils Percent Auto 81.7 % (50-75); Platelet Count 176 X10^3/uL (150-400); Red Blood Cell Count 2.61 X10^6/uL (4.5-5.9); Red Cell Distribution Width 20.6 % (11.6-14.8); White Blood Cell Count 20.4 X10^3/uL (4.5-11.0)
[2023-09-08 00:53] LABS: NT-proBNP (BNP-Adult 18+) 7610 pg/mL (<125); Troponin I 0.065 ng/mL (0.01-0.034)
[2023-09-08 00:58] LABS: Procalcitonin 0.68 ng/mL (<0.5)
--- NOTE | 2023-09-08 01:00 | RT ---
At 0014, placed pt on BiPAP, per Dr. Nj. Initial settings 15/5 100%. Pt is in severe resp. distress. Will adjust settings, per RT Protocol and adjust FiO2 as tolerated.
[2023-09-08] MEDS: cefTRIAXone 1,000 MG in SODIUM CHLORIDE 0.9% 100 ML 200 MG IV (01:03)
[2023-09-08 01:11] LABS: Anisocytosis 1+
[2023-09-08] MEDS: FUROSEMIDE 60 MG in SODIUM CHLORIDE 0.9% 50 ML 112 MG IV (01:18)
[2023-09-08 01:36] LABS: PCO2 ABG 38.4 mmHg (35-45); PO2 ABG 246 mmHg (80-100); pH ABG 7.46 (7.35-7.45)
[2023-09-08 01:37] LABS: Allen Test for ABG Passed? Yes, Passed; Blood Gas Collection Site Right Radial; Fractionated Inspired Oxygen 55; HCO3 ABG 27 mmol/L (23-27); Oxygen Saturation ABG 100 % (95-100); TCO2 ABG 28 mmol/L (23-27)
[2023-09-08 02:01] LABS: Reflexed Lactate in 2 Hours Y
[2023-09-08] MEDS: SODIUM CHLORIDE 0.9% 250 ML 1000 ML IV (02:03)
[2023-09-08 02:25] LABS: Appearance Urine UA CLEAR; Bilirubin Urine UA NEGATIVE (NEGATIVE); Color Urine UA YELLOW; Glucose Urine UA NEGATIVE (Negative); Ketones Urine UA NEGATIVE (NEGATIVE); Leukocyte Esterase Urine UA NEGATIVE (NEGATIVE); Nitrite Urine UA NEGATIVE (Negative); Occult Blood Urine UA 3+ (Negative); Protein Urine UA TRACE (Negative); Urobilinogen Urine UA 0.2 E.U./dL (0.2); pH Urine UA 5.5 (4.5-8.0)
[2023-09-08] MEDS: SODIUM CHLORIDE 0.9% 1,000 ML 100 ML IV ×2 (02:27→12:01)
[2023-09-08 02:32] LABS: Bacteria Urine Occasional (0-1); RBC Urine 30-100/HPF (0-5/HPF); Squamous Epithelial Cell Urine 0-1 /HPF (0-5/HPF); Transitional Epi Cells Urine 0-1/HPF (0-5/HPF); Urine Volume 10mL (spun); WBC Urine 0-1/HPF (0-5/HPF)
[2023-09-08 02:33] LABS: Culture Indicated Urine Cult Not Indicated; Granular Casts Urine 0-1/LPF
[2023-09-08 02:49] LABS: Creatine Kinase 23 U/L (55-170)
[2023-09-08 03:02] LABS: Troponin I 0.061 ng/mL (0.01-0.034)
[2023-09-08 03:03] LABS: Lactate 2HR (Lactic Acid Rflx) 1.3 mmol/L (0.7-2.1)
--- NOTE | 2023-09-08 03:12 | RT ---
0312 - Pt off BiPAP at this time, placed on 3L NC; SpO2 WNLs, improved WOB, spont. RR [address] Nj aware. Will cont. to monitor closely.
[2023-09-08 03:19] LABS: Adenovirus Not Detected (Not Detect); B. parapertussis Not Detected (Not Detecte); Bordetella pertussis Not Detected (Not Detect); Chlamydophila pneumoniae Not Detected (Not Detect); Coronavirus 229E Not Detected (Not Detect); Coronavirus HKU1 Not Detected (Not Detect); Coronavirus NL 63 Not Detected (Not Detect); Coronavirus OC43 Not Detected (Not Detect); Human Metapneumovirus Not Detected (Not Detect); Human Rhinovirus/Enterovirus Not Detected (Not Detect); Influenza A Not Detected (Not Detect); Influenza B Not Detected (Not Detect); Mycoplasma pneumoniae Not Detected (Not Detect); Parainfluenza Virus 1 Not Detected (Not Detect); Parainfluenza Virus 2 Not Detected (Not Detect); Parainfluenza Virus 3 Not Detected (Not Detect); Parainfluenza Virus 4 Not Detected (Not Detect); Respiratory Syncytial Virus Not Detected (Not Detect); SARS- CoV-2 Not Detected (Not Detecte)
[2023-09-08] MEDS: FUROSEMIDE 40 MG/4 ML VIAL IV ×3 (06:06→21:04)
[2023-09-08] MEDS: PANTOPRAZOLE DR 20 MG TABLET PO (06:06)
--- NOTE | 2023-09-08 07:32 | P.HP_ITS ---
History of Present Illness History of Present Illness Date Patient Seen: 09/08/23 Time Patient Seen: 07:32 Chief complaint: on cpap, sob Narrative: The pt is a 68 yo who reports no previous medical problems prior to July of this year who presents with SOB and fatigue. THe pt was hospitalized a couple of weeks ago for subacute bacterial endocarditis at [facility] and remains on ROcephin 2 gm daily for the next 6 weeks. He was discharged one week ago and has been home with his and children since. Most of the history comes from the son who was at bedside since the pt appeared to be confused and hard of hearing. He started feeling SOB and dsypneic shortly after returning home and has been progressively worsening since. The son states his SaO2 was 50% at [facility] thus they brought him to our ER for evaluation. The pt denies any CP, chest pressure, fevers, chills, productive sputum. He has been having a 30 lb wiehgt loss over the past 3 months attributed to his lack of appetite and very poor dentition and decayed teeth. [facility] Social History Smoking Status: Never smoker Meds Home Medications and Allergies Home Medications Medication Instructions Recorded Confirmed Type acetaminophen 325 mg tablet 325 mg PO PRN PRN pain 09/08/23 09/08/23 History amiodarone 400 mg tablet 400 mg PO BID 09/08/23 09/08/23 History calcium acetate(phosphat bind) 667 667 mg PO 3XD 09/08/23 09/08/23 History mg capsule calcium carbonate 200 mg calcium 500 mg PO PRN PRN Acid Reflux 09/08/23 09/08/23 History (500 mg) chewable tablet (Antacid (calcium carbonate)) ceftriaxone 2 gram intravenous 2 g IV DAILY 09/08/23 09/08/23 History piggyback furosemide 20 mg tablet 20 mg PO DAILY 09/08/23 09/08/23 History metoprolol succinate 25 mg 25 mg PO DAILY 09/08/23 09/08/23 History tablet,extended release 24 hr ondansetron 4 mg disintegrating 4 mg PO Q6H PRN Nausea And Vomiting 09/08/23 09/08/23 History tablet tamsulosin 0.4 mg capsule 0.4 mg PO DAILY 09/08/23 09/08/23 History vitamin B comp no.3-folic acid 1 1 tab PO QPM 09/08/23 09/08/23 History mg-vit C 60 mg-biotin 300 mcg tablet ([facility]) Allergies Allergy/AdvReac Type Severity Reaction Status Date / Time No Known Drug Allergies Allergy Verified 08/22/23 13:23 Exam Vital Signs (past 8 hours): - 09/08/23 00:14 09/08/23 00:17 09/08/23 00:23 Temperature 98.9 F Pulse Rate 93 H 94 H Respiratory Rate 34 H 34 H Blood Pressure 158/74 H Pulse Oximetry 98 98 Oxygen Delivery Method BiPAP BiPAP Oxygen Flow Rate 60 Fraction of Inspired Oxygen 100 09/08/23 00:24 09/08/23 00:30 09/08/23 00:30 Temperature Pulse Rate 80 Respiratory Rate 29 H Blood Pressure 136/70 Pulse Oximetry 100 Oxygen Delivery Method BiPAP BiPAP Oxygen Flow Rate Fraction of Inspired Oxygen 09/08/23 00:43 09/08/23 00:45 09/08/23 00:45 Temperature Pulse Rate 81 Respiratory Rate 37 H Blood Pressure 133/68 Pulse Oximetry 100 Oxygen Delivery Method Oxygen Flow Rate Fraction of Inspired Oxygen 55 09/08/23 01:00 09/08/23 01:00 09/08/23 01:15 Temperature Pulse Rate 82 83 Respiratory Rate 38 H 38 H Blood Pressure 125/65 Pulse Oximetry 100 100 Oxygen Delivery Method BiPAP BiPAP Oxygen Flow Rate Fraction of Inspired Oxygen 09/08/23 01:15 09/08/23 01:25 09/08/23 01:25 Temperature Pulse Rate Respiratory Rate Blood Pressure 116/58 L Pulse Oximetry 100 Oxygen Delivery Method BiPAP Oxygen Flow Rate Fraction of Inspired Oxygen 30 09/08/23 01:30 09/08/23 01:30 09/08/23 01:45 Temperature Pulse Rate 83 84 Respiratory Rate 36 H 34 H Blood Pressure 108/59 L Pulse Oximetry 99 98 Oxygen Delivery Method BiPAP BiPAP Oxygen Flow Rate Fraction of Inspired Oxygen 09/08/23 01:45 09/08/23 02:00 09/08/23 02:00 Temperature Pulse Rate 84 Respiratory Rate 32 H Blood Pressure 98/50 L 106/57 L Pulse Oximetry 99 Oxygen Delivery Method BiPAP Oxygen Flow Rate Fraction of Inspired Oxygen 09/08/23 02:15 09/08/23 02:15 09/08/23 02:30 Temperature Pulse Rate 83 84 Respiratory Rate 33 H 32 H Blood Pressure 94/50 L Pulse Oximetry 99 98 Oxygen Delivery Method BiPAP BiPAP Oxygen Flow Rate Fraction of Inspired Oxygen 09/08/23 02:30 09/08/23 02:45 09/08/23 02:45 Temperature Pulse Rate 83 Respiratory Rate 29 H Blood Pressure 98/53 L 97/52 L Pulse Oximetry 98 Oxygen Delivery Method BiPAP Oxygen Flow Rate Fraction of Inspired Oxygen 09/08/23 03:00 09/08/23 03:00 09/08/23 03:15 Temperature Pulse Rate 84 Respiratory Rate 30 H Blood Pressure 101/54 L Pulse Oximetry 98 93 Oxygen Delivery Method BiPAP Nasal Cannula Oxygen Flow Rate 3 Fraction of Inspired Oxygen 09/08/23 03:15 09/08/23 03:15 09/08/23 03:30 Temperature Pulse Rate 89 86 Respiratory Rate 33 H 38 H Blood Pressure 109/55 L Pulse Oximetry 94 95 Oxygen Delivery Method Nasal Cannula Nasal Cannula Oxygen Flow Rate 3 3 Fraction of Inspired Oxygen 09/08/23 03:30 09/08/23 03:45 09/08/23 03:45 Temperature Pulse Rate 81 Respiratory Rate 29 H Blood Pressure 111/55 L 101/55 L Pulse Oximetry 94 Oxygen Delivery Method Nasal Cannula Oxygen Flow Rate 3 Fraction of Inspired Oxygen 09/08/23 04:00 09/08/23 04:00 09/08/23 04:15 Temperature Pulse Rate 80 Respiratory Rate 30 H Blood Pressure 104/54 L 98/52 L Pulse Oximetry 93 Oxygen Delivery Method Nasal Cannula Oxygen Flow Rate 3 Fraction of Inspired Oxygen 09/08/23 04:15 09/08/23 04:30 09/08/23 04:30 Temperature Pulse Rate 80 79 Respiratory Rate 31 H 22 Blood Pressure 98/52 L Pulse Oximetry 96 97 Oxygen Delivery Method Nasal Cannula Nasal Cannula Oxygen Flow Rate 3 3 Fraction of Inspired Oxygen 09/08/23 04:45 09/08/23 04:46 09/08/23 04:46 Temperature Pulse Rate 78 79 Respiratory Rate 18 24 Blood Pressure 100/59 L Pulse Oximetry 96 95 Oxygen Delivery Method Nasal Cannula Nasal Cannula Oxygen Flow Rate 3 3 Fraction of Inspired Oxygen 09/08/23 05:00 09/08/23 05:00 09/08/23 05:15 Temperature Pulse Rate 74 75 Respiratory Rate 24 28 H Blood Pressure 100/55 L Pulse Oximetry 98 98 Oxygen Delivery Method Room Air Nasal Cannula Oxygen Flow Rate 3 3 Fraction of Inspired Oxygen 09/08/23 05:15 09/08/23 05:30 09/08/23 05:30 Temperature Pulse Rate 75 Respiratory Rate 26 H Blood Pressure 99/54 L 100/56 L Pulse Oximetry 98 Oxygen Delivery Method Nasal Cannula Oxygen Flow Rate 3 Fraction of Inspired Oxygen Fraction of Inspired Oxygen 30 Oxygen Delivery Method Nasal Cannula Oxygen Flow Rate 3 Const General: comfortable and frail appearing Resp Auscultation: clear to auscultation bilaterally Cardio Rate: regular rate Rhythm: regular rhythm Extrem General: pedal edema Objective Labs 09/08/23 00:15 09/08/23 00:15 Labs: Laboratory Results - last 24 hr 09/08/23 09/08/23 09/08/23 00:15 01:05 01:16 WBC 20.4 H RBC 2.61 L Hgb 8.0 L Hct 24.4 L MCV 93.3 MCH 30.7 MCHC 32.9 RDW 20.6 H Plt Count 176 Neut % (Auto) 81.7 H Lymph % (Auto) 8.4 L [place] % (Auto) 6.3 Eos % (Auto) 2.5 Baso % (Auto) 1.1 Neut # (Auto) 02583 H Lymph # (Auto) 1700 [place] # (Auto) 1300 H Eos # (Auto) 500 H Baso # (Auto) 200 H RBC Morphology See below Anisocytosis 1+ H PT 12.7 H INR 1.1 APTT 29 ABG Sample Site Right radial ABG pH 7.46 H ABG pCO2 38.4 ABG pO2 246 H ABG HCO3 27 ABG Total CO2 28 H ABG O2 Saturation 100 ABG Base Excess 3.0 FiO2 55 Sodium 134 L Potassium 4.8 Chloride 102 Carbon Dioxide 27 BUN 55 H Creatinine 2.60 H Estimated GFR 26 L BUN/Creatinine Ratio 21.2 Glucose 112 H Lactate 2.9 H Calcium 8.5 Magnesium 1.6 Total Bilirubin 0.5 AST 31 ALT 17 Alkaline Phosphatase 73 Total Creatine Kinase 27 L Troponin I 0.065 H NT-Pro-B Natriuret Pep 7610 H Total Protein 6.7 Albumin 2.7 L Globulin 4.0 Albumin/Globulin Ratio 0.7 L Lipase 210 Procalcitonin 0.68 H Urine Color Yellow Urine Appearance Clear Urine pH 5.5 Ur Specific [place] 1.010 Urine Protein Trace H Urine Glucose (UA) Negative Urine Ketones Negative Urine Occult Blood 3+ H Urine Nitrate Negative Urine Bilirubin Negative Urine Urobilinogen 0.2 Ur Leukocyte Esterase Negative Urine RBC 30-100/hpf H Urine WBC 0-1/hpf Ur Squamous Epith Cells 0-1 /hpf Ur Transition Epith Cell 0-1/hpf Urine Bacteria Occasional (0-1) Granular Casts 0-1/lpf Ur Culture Indicated? Cult not indicated Vol Urine Centrifuged 10ml (spun) Chlamy pneumoniae PCR Adenovirus (PCR) B.parapertussis DNA PCR Coronavirus OC43 (PCR) Coronavirus HKU1 (PCR) Coronavirus 229E (PCR) SARS-CoV-2 (PCR) Coronavirus NL63 (PCR) Human Metapneumovir PCR Influenza Type A (PCR) Influenza Type B (PCR) M. pneumoniae (PCR) Parainfluenza 1 (PCR) Parainfluenza 2 (PCR) Parainfluenza 3 (PCR) Parainfluenza 4 (PCR) RSV (PCR) Entero/Rhino (PCR) 09/08/23 09/08/23 09/08/23 02:20 02:30 02:40 WBC RBC Hgb Hct MCV MCH MCHC RDW Plt Count Neut % (Auto) Lymph % (Auto) [place] % (Auto) Eos % (Auto) Baso % (Auto) Neut # (Auto) Lymph # (Auto) [place] # (Auto) Eos # (Auto) Baso # (Auto) RBC Morphology Anisocytosis PT INR APTT ABG Sample Site ABG pH ABG pCO2 ABG pO2 ABG HCO3 ABG Total CO2 ABG O2 Saturation ABG Base Excess FiO2 Sodium Potassium Chloride Carbon Dioxide BUN Creatinine Estimated GFR BUN/Creatinine Ratio Glucose Lactate 1.3 Calcium Magnesium Total Bilirubin AST ALT Alkaline Phosphatase Total Creatine Kinase 23 L Troponin I 0.061 H NT-Pro-B Natriuret Pep Total Protein Albumin Globulin Albumin/Globulin Ratio Lipase Procalcitonin Urine Color Urine Appearance Urine pH Ur Specific [place] Urine Protein Urine Glucose (UA) Urine Ketones Urine Occult Blood Urine Nitrate Urine Bilirubin Urine Urobilinogen Ur Leukocyte Esterase Urine RBC Urine WBC Ur Squamous Epith Cells Ur Transition Epith Cell Urine Bacteria Granular Casts Ur Culture Indicated? Vol Urine Centrifuged Chlamy pneumoniae PCR Not detected Adenovirus (PCR) Not detected B.parapertussis DNA PCR Not detected Coronavirus OC43 (PCR) Not detected Coronavirus HKU1 (PCR) Not detected Coronavirus 229E (PCR) Not detected SARS-CoV-2 (PCR) Not detected Coronavirus NL63 (PCR) Not detected Human Metapneumovir PCR Not detected Influenza Type A (PCR) Not detected Influenza Type B (PCR) Not detected M. pneumoniae (PCR) Not detected Parainfluenza 1 (PCR) Not detected Parainfluenza 2 (PCR) Not detected Parainfluenza 3 (PCR) Not detected Parainfluenza 4 (PCR) Not detected RSV (PCR) Not detected Entero/Rhino (PCR) Not detected Assessment & Plan Assessment and plan (1) CHF (congestive heart failure): Status: Acute (2) BRYANNA (acute kidney injury): Status: Acute (3) Anemia: Qualifiers: Anemia type: unspecified type Qualified Code(s): D64.9 - Anemia, unspecified Status: Acute (4) Endocarditis: Status: Acute Plan I discussed the pt's symptoms and labs with the ER provider and agree with the admission. The ER provider did talk to the physicians at [facility] regarding possible transfer but they did not have any beds available at their facility. He does have a severe mitral valve regurgitation but no intervention is planned until the subacute endocarditis is resolved. We will continue the rocephin 2 gm IV daily while he is in our facility, blood cultures are pending, his WBC is 20 despite being on abx, his GFFR/ Cr is elevated and will need to monitor this closely, it is not too far off from where he was 2 weeks ago. Pro- BNP is elevated also, lasix has been ordered, could consider repeating echo, and cardiology consultation. Unknown what his basleine mental status is, could consider MRI head. DIscussed home meds with the pt, will restart most of them.
[2023-09-08] MEDS: TAMSULOSIN 0.4 MG CAPSULE PO (09:10)
[2023-09-08] MEDS: METOPROLOL ER 25 MG TABLET PO (09:10)
--- NOTE | 2023-09-08 09:14 | PC.NURSE ---
This RN called pharmacy for remaining medications that are to be given at 9am that haven't already been given as they are not available for this RN to pull within department.
[2023-09-08] MEDS: SPIRONOLACTONE 25 MG TABLET PO (09:32)
[2023-09-08] MEDS: CALCIUM ACETATE 667 MG CAPSULE PO ×3 (09:33→21:05)
[2023-09-08] MEDS: AMIODARONE 200 MG TABLET 400 MG PO ×2 (09:38→21:04)
--- NOTE | 2023-09-08 12:52 | P.HP_ITS ---
History of Present Illness History of Present Illness Date Patient Seen: 09/08/23 Time Patient Seen: 11:15 Chief complaint: on cpap, sob Narrative: This is a 68 year old male, with recent PMH of afib, on ceftriaxone for possible subactue endocarditis, CHFrEF (40-45%) with MR, BPH, CKD (unknown baseline cr), anemia who presented with worsening shortness of breath. He has been at home for about a week. He has slowly been having worsening shortness of breath. With EMS his O2 saturations was in the 50% range. Overnight he was diuresed, improved oxygenation this morning. He feels improved, denies current dyspnea. Awaiting a hospital bed this morning in the ER. He does not recall how long his legs have been swollen and has poor insight into his current health situation other than vagarities. [facility] Medical History (Updated 09/08/23 @ 12:57 by Kevin Crisostomo DO) History of transesophageal echocardiography (BRYON) Endocarditis CHF (congestive heart failure) Anemia Social History Smoking Status: Never smoker Meds Home Medications and Allergies Home Medications Medication Instructions Recorded Confirmed Type acetaminophen 325 mg tablet 325 mg PO PRN PRN pain 09/08/23 09/08/23 History amiodarone 400 mg tablet 400 mg PO BID 09/08/23 09/08/23 History calcium acetate(phosphat bind) 667 667 mg PO 3XD 09/08/23 09/08/23 History mg capsule calcium carbonate 200 mg calcium 500 mg PO PRN PRN Acid Reflux 09/08/23 09/08/23 History (500 mg) chewable tablet (Antacid (calcium carbonate)) ceftriaxone 2 gram intravenous 2 g IV DAILY 09/08/23 09/08/23 History piggyback furosemide 20 mg tablet 20 mg PO DAILY 09/08/23 09/08/23 History metoprolol succinate 25 mg 25 mg PO DAILY 09/08/23 09/08/23 History tablet,extended release 24 hr ondansetron 4 mg disintegrating 4 mg PO Q6H PRN Nausea And Vomiting 09/08/23 09/08/23 History tablet tamsulosin 0.4 mg capsule 0.4 mg PO DAILY 09/08/23 09/08/23 History vitamin B comp no.3-folic acid 1 1 tab PO QPM 09/08/23 09/08/23 History mg-vit C 60 mg-biotin 300 mcg tablet ([facility]) Allergies Allergy/AdvReac Type Severity Reaction Status Date / Time No Known Drug Allergies Allergy Verified 08/22/23 13:23 Review of Systems Review of Systems Narrative: All other systems reviewed with the patient and are negative unless otherwise stated. Exam Vital Signs (past 8 hours): - 09/08/23 05:00 09/08/23 05:00 09/08/23 05:15 Pulse Rate 74 75 Respiratory Rate 24 28 H Blood Pressure 100/55 L Pulse Oximetry 98 98 Oxygen Delivery Method Room Air Nasal Cannula Oxygen Flow Rate 3 3 09/08/23 05:15 09/08/23 05:30 09/08/23 05:30 Pulse Rate 75 Respiratory Rate 26 H Blood Pressure 99/54 L 100/56 L Pulse Oximetry 98 Oxygen Delivery Method Nasal Cannula Oxygen Flow Rate 3 09/08/23 07:00 09/08/23 07:00 09/08/23 07:15 Pulse Rate 75 69 Respiratory Rate 22 Blood Pressure 114/59 L Pulse Oximetry 99 99 Oxygen Delivery Method Nasal Cannula Nasal Cannula Oxygen Flow Rate 3 3 09/08/23 07:15 09/08/23 07:30 09/08/23 07:30 Pulse Rate 68 Respiratory Rate 17 Blood Pressure 112/59 L 116/60 Pulse Oximetry 100 Oxygen Delivery Method Nasal Cannula Oxygen Flow Rate 3 09/08/23 07:45 09/08/23 07:45 09/08/23 08:00 Pulse Rate 68 69 Respiratory Rate 21 Blood Pressure 112/57 L Pulse Oximetry 100 99 Oxygen Delivery Method Oxygen Flow Rate 09/08/23 08:00 09/08/23 08:15 09/08/23 08:15 Pulse Rate 69 Respiratory Rate Blood Pressure 116/59 L 114/60 Pulse Oximetry 100 Oxygen Delivery Method Oxygen Flow Rate 09/08/23 08:30 09/08/23 08:30 09/08/23 08:45 Pulse Rate 68 Respiratory Rate 29 H Blood Pressure 114/61 112/58 L Pulse Oximetry 100 Oxygen Delivery Method Oxygen Flow Rate 09/08/23 08:45 09/08/23 09:00 09/08/23 09:00 Pulse Rate 69 69 Respiratory Rate 26 H 29 H Blood Pressure 112/58 L Pulse Oximetry 100 98 Oxygen Delivery Method Nasal Cannula Nasal Cannula Oxygen Flow Rate 3 2 09/08/23 09:10 09/08/23 09:15 09/08/23 09:15 Pulse Rate 66 68 Respiratory Rate 31 H Blood Pressure 112/61 111/58 L Pulse Oximetry 98 Oxygen Delivery Method Nasal Cannula Oxygen Flow Rate 2 09/08/23 09:30 09/08/23 09:30 09/08/23 09:45 Pulse Rate 66 67 Respiratory Rate 27 H 32 H Blood Pressure 114/61 Pulse Oximetry 98 98 Oxygen Delivery Method Nasal Cannula Nasal Cannula Oxygen Flow Rate 3 3 09/08/23 09:45 09/08/23 09:47 09/08/23 10:00 Pulse Rate 66 66 Respiratory Rate 32 H Blood Pressure 109/59 L 109/59 L Pulse Oximetry 98 Oxygen Delivery Method Nasal Cannula Oxygen Flow Rate 3 09/08/23 10:00 09/08/23 10:15 09/08/23 10:15 Pulse Rate 64 Respiratory Rate 30 H Blood Pressure 109/61 111/60 Pulse Oximetry 99 Oxygen Delivery Method Nasal Cannula Oxygen Flow Rate 3 09/08/23 10:30 09/08/23 10:30 09/08/23 10:45 Pulse Rate 62 62 Respiratory Rate 25 H 23 Blood Pressure 115/64 Pulse Oximetry 99 100 Oxygen Delivery Method Nasal Cannula Oxygen Flow Rate 3 09/08/23 10:45 09/08/23 11:00 09/08/23 11:00 Pulse Rate 64 Respiratory Rate 33 H Blood Pressure 112/60 113/62 Pulse Oximetry 100 Oxygen Delivery Method Nasal Cannula Oxygen Flow Rate 3 09/08/23 11:15 09/08/23 11:15 09/08/23 11:30 Pulse Rate 66 65 Respiratory Rate 29 H 30 H Blood Pressure 109/58 L Pulse Oximetry 92 93 Oxygen Delivery Method Nasal Cannula Nasal Cannula Oxygen Flow Rate 3 09/08/23 11:30 09/08/23 11:45 09/08/23 11:45 Pulse Rate 64 Respiratory Rate 33 H Blood Pressure 113/62 110/62 Pulse Oximetry 96 Oxygen Delivery Method Nasal Cannula Oxygen Flow Rate 3 09/08/23 12:00 09/08/23 12:00 09/08/23 12:15 Pulse Rate 65 Respiratory Rate 36 H Blood Pressure 110/63 124/66 Pulse Oximetry 99 Oxygen Delivery Method Nasal Cannula Oxygen Flow Rate 3 09/08/23 12:15 09/08/23 12:30 09/08/23 12:30 Pulse Rate 62 61 Respiratory Rate 29 H 25 H Blood Pressure 118/58 L Pulse Oximetry 99 99 Oxygen Delivery Method Nasal Cannula Nasal Cannula Oxygen Flow Rate 3 3 Fraction of Inspired Oxygen 30 Oxygen Delivery Method Nasal Cannula Oxygen Flow Rate 3 Narrative Exam Narrative: Gen: WDWN male, no acute distress, on 3L O2 CV: regular rate with irregularly irregularly rhythm Pulm: diminished breath sounds b/l Lung bases Abd; S NT ND Ext: 2+ pitting edema b/l LE. Objective Labs 09/08/23 00:15 09/08/23 00:15 Labs: Laboratory Results - last 24 hr 09/08/23 09/08/23 09/08/23 00:15 01:05 01:16 WBC 20.4 H RBC 2.61 L Hgb 8.0 L Hct 24.4 L MCV 93.3 MCH 30.7 MCHC 32.9 RDW 20.6 H Plt Count 176 Neut % (Auto) 81.7 H Lymph % (Auto) 8.4 L [place] % (Auto) 6.3 Eos % (Auto) 2.5 Baso % (Auto) 1.1 Neut # (Auto) 96290 H Lymph # (Auto) 1700 [place] # (Auto) 1300 H Eos # (Auto) 500 H Baso # (Auto) 200 H RBC Morphology See below Anisocytosis 1+ H PT 12.7 H INR 1.1 APTT 29 ABG Sample Site Right radial ABG pH 7.46 H ABG pCO2 38.4 ABG pO2 246 H ABG HCO3 27 ABG Total CO2 28 H ABG O2 Saturation 100 ABG Base Excess 3.0 FiO2 55 Sodium 134 L Potassium 4.8 Chloride 102 Carbon Dioxide 27 BUN 55 H Creatinine 2.60 H Estimated GFR 26 L BUN/Creatinine Ratio 21.2 Glucose 112 H Lactate 2.9 H Calcium 8.5 Magnesium 1.6 Total Bilirubin 0.5 AST 31 ALT 17 Alkaline Phosphatase 73 Total Creatine Kinase 27 L Troponin I 0.065 H NT-Pro-B Natriuret Pep 7610 H Total Protein 6.7 Albumin 2.7 L Globulin 4.0 Albumin/Globulin Ratio 0.7 L Lipase 210 Procalcitonin 0.68 H Urine Color Yellow Urine Appearance Clear Urine pH 5.5 Ur Specific [place] 1.010 Urine Protein Trace H Urine Glucose (UA) Negative Urine Ketones Negative Urine Occult Blood 3+ H Urine Nitrate Negative Urine Bilirubin Negative Urine Urobilinogen 0.2 Ur Leukocyte Esterase Negative Urine RBC 30-100/hpf H Urine WBC 0-1/hpf Ur Squamous Epith Cells 0-1 /hpf Ur Transition Epith Cell 0-1/hpf Urine Bacteria Occasional (0-1) Granular Casts 0-1/lpf Ur Culture Indicated? Cult not indicated Vol Urine Centrifuged 10ml (spun) Chlamy pneumoniae PCR Adenovirus (PCR) B.parapertussis DNA PCR Coronavirus OC43 (PCR) Coronavirus HKU1 (PCR) Coronavirus 229E (PCR) SARS-CoV-2 (PCR) Coronavirus NL63 (PCR) Human Metapneumovir PCR Influenza Type A (PCR) Influenza Type B (PCR) M. pneumoniae (PCR) Parainfluenza 1 (PCR) Parainfluenza 2 (PCR) Parainfluenza 3 (PCR) Parainfluenza 4 (PCR) RSV (PCR) Entero/Rhino (PCR) 09/08/23 09/08/23 09/08/23 02:20 02:30 02:40 WBC RBC Hgb Hct MCV MCH MCHC RDW Plt Count Neut % (Auto) Lymph % (Auto) [place] % (Auto) Eos % (Auto) Baso % (Auto) Neut # (Auto) Lymph # (Auto) [place] # (Auto) Eos # (Auto) Baso # (Auto) RBC Morphology Anisocytosis PT INR APTT ABG Sample Site ABG pH ABG pCO2 ABG pO2 ABG HCO3 ABG Total CO2 ABG O2 Saturation ABG Base Excess FiO2 Sodium Potassium Chloride Carbon Dioxide BUN Creatinine Estimated GFR BUN/Creatinine Ratio Glucose Lactate 1.3 Calcium Magnesium Total Bilirubin AST ALT Alkaline Phosphatase Total Creatine Kinase 23 L Troponin I 0.061 H NT-Pro-B Natriuret Pep Total Protein Albumin Globulin Albumin/Globulin Ratio Lipase Procalcitonin Urine Color Urine Appearance Urine pH Ur Specific [place] Urine Protein Urine Glucose (UA) Urine Ketones Urine Occult Blood Urine Nitrate Urine Bilirubin Urine Urobilinogen Ur Leukocyte Esterase Urine RBC Urine WBC Ur Squamous Epith Cells Ur Transition Epith Cell Urine Bacteria Granular Casts Ur Culture Indicated? Vol Urine Centrifuged Chlamy pneumoniae PCR Not detected Adenovirus (PCR) Not detected B.parapertussis DNA PCR Not detected Coronavirus OC43 (PCR) Not detected Coronavirus HKU1 (PCR) Not detected Coronavirus 229E (PCR) Not detected SARS-CoV-2 (PCR) Not detected Coronavirus NL63 (PCR) Not detected Human Metapneumovir PCR Not detected Influenza Type A (PCR) Not detected Influenza Type B (PCR) Not detected M. pneumoniae (PCR) Not detected Parainfluenza 1 (PCR) Not detected Parainfluenza 2 (PCR) Not detected Parainfluenza 3 (PCR) Not detected Parainfluenza 4 (PCR) Not detected RSV (PCR) Not detected Entero/Rhino (PCR) Not detected Assessment & Plan Assessment & Plan narrative: 1. Acute on chronic combined systolic and diastolic heart failure\ - recent TTE and BRYON at OSH. EF 40-45%. - continue furosemide 40 mg IV TID, monitor Cr closely. 2. CKD, unknown baseline staging - continue furosemide, renally dose medications. Appears stable from previous values. Cr was as high as 4 at OSH. 3. Acute respiratory failure with hypoxia - suspect due to problem 1 above. Continue diuresis. - no wheeing but if minimal improvement consider steroids. - albuterol nebs prn. 4. BPH with urinary obstruction - continue almanza and flomax 5. presumed chronic atrial fibrillation - continue home amiodarone and metoprolol. - continue telemetry monitoring - start low dose (2.5 mg BID) apixaban with elevated cr. and is <60Kg. 6. subacute endocarditis - continue ceftriaxone IV q 24 hours. Follows with [place] [facility]. - patient reports BRYON at [facility] [place]. - repeat blood cultures obtained. If recurrent consider transfer for 7. myocardial injury / elevated troponin - suspect in setting of elevated demand from CHF. Troponins have downtrended. No further evaluation necessary inpatient. Was recommended for left and right heart cath as outpatient, after treatment of endocarditits. 8. Chronic presumed ILD - goal O2 88% on RA. Wean O2 as tolerated. 9. Chronic anemia - monitor closely with starting of apixaban. Code: Full, surrogate is patient's son DVT: start apixaban Dispo: inpatient, anticipated stay is beyond two midnights. Consider PT/OT depending on improvement. Additional history obtained from ER provider, overnight hospitalist, and extensive review of outside hospitalization records.
[2023-09-08] MEDS: APIXABAN 5 MG TABLET 2.5 MG PO ×2 (13:21→21:03)
--- NOTE | 2023-09-08 14:17 | PC.NURSE ---
Pt arrived on stretcher from ED at 1300, able to transfer self to bed. A&Ox4, VSS on 3L NC. Crackles in lungs, bowel sounds present, CMS intact bilaterally. Chronic almanza patent, draining clear yellow urine. 2+ pitting edema to bilat lower extremities. Tele #3 placed: sinus layne. Pt helped to bathroom, 1 assist w/FWW. Non-blanching redness to coccyx noted, waffle cushion placed on bed and pt encouraged to rotate position frequently. Pt oriented to room and call light. Bed in low position, call light within reach, Bed alarm activated.
[2023-09-08] MEDS: SENNOSIDES 8.6 MG TABLET 17.2 MG PO (21:05)
[2023-09-08] MEDS: cefTRIAXone 2,000 MG in SODIUM CHLORIDE 0.9% 100 ML 200 MG IV (21:05)
[2023-09-09] VITALS (12 sets, daily range): BP systolic 106–127; BP diastolic 56–69; PULSE 62–68; RESP 12–40; TEMP 35.9–36.6; O2SAT 89–98
[2023-09-09] MEDS: FUROSEMIDE 40 MG/4 ML VIAL IV ×3 (05:16→21:51)
[2023-09-09] MEDS: PANTOPRAZOLE DR 20 MG TABLET PO (05:16)
[2023-09-09 06:56] LABS: Add Manual Diff / Slide Review NO; Basophils Absolute Auto 0 /uL (0-100); Basophils Percent Auto 0.1 % (0-2); Eosinophils Absolute Auto 0 /uL (0-450); Eosinophils Percent Auto 0.4 % (2-4); Hematocrit 21.6 % (41-53); Hemoglobin 7.2 g/dL (13.5-17.5); Lymphocytes Absolute Auto 1100 /uL (1100-4500); Lymphocytes Percent Auto 9.5 % (25-40); Mean Corpuscular HGB Conc 33.4 % (30-36); Mean Corpuscular Hemoglobin 31.7 PG (26-34); Mean Corpuscular Volume 94.9 fL (80-100); Monocytes Absolute Auto 900 /uL (0-900); Monocytes Percent Auto 7.7 % (3-14); Neutrophils Absolute Auto 9800 /uL (1500-7000); Neutrophils Percent Auto 82.3 % (50-75); Platelet Count 94 X10^3/uL (150-400); Red Blood Cell Count 2.28 X10^6/uL (4.5-5.9); Red Cell Distribution Width 21.1 % (11.6-14.8); White Blood Cell Count 11.9 X10^3/uL (4.5-11.0)
[2023-09-09 07:02] LABS: BUN Creatinine Ratio 22.4 (6-22); Blood Urea Nitrogen 61 mg/dL (9-20); Calcium 8.4 mg/dL (8.4-10.2); Carbon Dioxide 29 mmol/L (22-32); Chloride 101 mmol/L (98-107); Estimated Glomerular Filt Rate 25 mL/min (>60); Glucose 96 mg/dL (80-110); HEMOLYSIS < 15 (0-50); Potassium 3.8 mmol/L (3.4-5.1); Sodium 134 mmol/L (137-145)
[2023-09-09 07:44] LABS: Anisocytosis 2+
[2023-09-09] MEDS: AMIODARONE 200 MG TABLET 400 MG PO ×2 (09:20→22:11)
[2023-09-09] MEDS: APIXABAN 5 MG TABLET 2.5 MG PO ×2 (09:21→21:51)
[2023-09-09] MEDS: CALCIUM ACETATE 667 MG CAPSULE PO ×3 (09:22→22:12)
[2023-09-09] MEDS: METOPROLOL ER 25 MG TABLET PO (09:22)
[2023-09-09] MEDS: TAMSULOSIN 0.4 MG CAPSULE PO (09:23)
[2023-09-09] MEDS: SPIRONOLACTONE 25 MG TABLET PO (09:23)
--- NOTE | 2023-09-09 10:41 | CM.DANOTE ---
DCP: Case received, EMR reviewed and met with patient. Introduced self and role.Was able to obtain information regarding patient's baseline activity level prior to hospitalization. DCP assessment completed with information currently available. Patient is a 68 year old male who admitted yesterday morning to the care of the hospitalist team. PCP: Dr. Sanchez. Payer: confirmed: Medicare. Patient came to the hospital via ambulance secondary to having shortness of breath. When EMS arrived, patient had been supine, and his oxygen stats were in the 50s, they then placed him on CPAP. Patient had recently been at [facility], for endocartitis, and has been on IV ABO. He has a central line in his chest. Patient has a almanza catheter in place. Patient is diagnosed with acute on chronic diastolic heart failure. Patient is currently on 4 liters of oxygen. Met with patient in his room. He is alert, pleasant. Confirmed that he resides in [place] with his spouse, Makayla. He is employed at [employer]. He has been independent at his baseline. P: DCP to continue to follow for any needs. He should be able to go home when stable, he has already had home infusions set up from [facility]. Yue Salomon RN/Benefits Clerk Discharge Planning/Care Management CM Discharge Assessment Start: 09/09/23 10:40 Freq: Status: Active Protocol: Document 09/09/23 10:40 (Rec: 09/09/23 10:41 [id number]) Discharge Planning Assessment Assigned Search Marketing Specialist Yue Salomon RN/Benefits Clerk Advance Directives? No History Provided By Patient,Medical Record Prior Living Arrangements House Household Members spouse Type of transporation used prior to Drives own vehicle admit Independent with ADL's Yes Is patient alert and oriented? Yes Caregiver for Another No Barriers to Discharge No Discharge Plan Home Whiteboard Updated in Patient Room with Yes name and ext. # of Search Marketing Specialist Review Status In Process Next Review Type Continued Stay Review
--- NOTE | 2023-09-09 14:10 | P.PN_ITS ---
Subjective Subjective Interval history: 68 year old male with recent complex hospitalization at [facility], admitted for acute respiratory failure with hypoxia and presumed CHF exacerbation. He feels improved today. Was on 5L but 98%, weaned to 1L during my evaluation. Did desaturate to mid 80s on room air. Exam Vital Signs (past 8 hours): - 09/09/23 08:00 09/09/23 09:22 09/09/23 09:40 Temperature 97.6 F Pulse Rate 65 65 Respiratory Rate 18 Blood Pressure 117/62 117/62 Pulse Oximetry 96 Oxygen Delivery Method Nasal Cannula Oxygen Flow Rate 4 09/09/23 12:00 Temperature 97.8 F Pulse Rate 65 Respiratory Rate 16 Blood Pressure 106/58 L Pulse Oximetry 92 Oxygen Delivery Method Oxygen Flow Rate 4 Fraction of Inspired Oxygen 30 Oxygen Delivery Method Nasal Cannula Oxygen Flow Rate 4 Narrative Exam Narrative: Gen: WDWN male, no acute distress, on 5L O2 (weaned to 1L during my examination) CV: regular rate with irregularly irregularly rhythm Pulm: diminished breath sounds b/l Lung bases Abd; S NT ND Ext: 1-2+ pitting edema b/l LE, slight improvement since yesterday Objective Labs 09/09/23 06:20 09/09/23 06:20 Labs: Laboratory Results - last 24 hr 09/09/23 06:20 WBC 11.9 H RBC 2.28 L Hgb 7.2 L Hct 21.6 L MCV 94.9 MCH 31.7 MCHC 33.4 RDW 21.1 H Plt Count 94 L Neut % (Auto) 82.3 H Lymph % (Auto) 9.5 L Edmonson % (Auto) 7.7 Eos % (Auto) 0.4 L Baso % (Auto) 0.1 Neut # (Auto) 9800 H Lymph # (Auto) 1100 Edmonson # (Auto) 900 Eos # (Auto) 0 Baso # (Auto) 0 RBC Morphology See below Anisocytosis 2+ H Sodium 134 L Potassium 3.8 Chloride 101 Carbon Dioxide 29 BUN 61 H Creatinine 2.72 H Estimated GFR 25 L BUN/Creatinine Ratio 22.4 H Glucose 96 Calcium 8.4 PFSH Medical History (Updated 09/08/23 @ 12:57 by Kevin Crisostomo DO) History of transesophageal echocardiography (BRYON) Endocarditis CHF (congestive heart failure) Anemia Social History household members: spouse Smoking Status: Never smoker alcohol intake: never Assessment & Plan Assessment & Plan narrative: 1. Acute on chronic combined systolic and diastolic heart failure\ - recent TTE and BRYON at OSH. EF 40-45%. - continue furosemide 40 mg IV TID, monitor Cr closely. Diuresing well today clinically, only net negative 600 per intake and output, and weight similar to previous admissions. - PT / OT today. - possibly worsened in setting of anemia, consider transfusion as noted below. 2. CKD, unknown baseline staging - continue furosemide, renally dose medications. Appears stable from previous values. Cr was as high as 4 at OSH. Cr 2.72 today. 3. Acute respiratory failure with hypoxia - suspect due to problem 1 above. Continue diuresis. - no wheeing but if minimal improvement consider steroids for possible ILD flare, though this is highly unlikely at this time. - albuterol nebs prn. 4. BPH with urinary obstruction - continue almanza and flomax 5. presumed chronic atrial fibrillation - continue home amiodarone and metoprolol. - continue telemetry monitoring - start low dose (2.5 mg BID) apixaban with elevated cr. and is <60Kg. 6. subacute endocarditis - continue ceftriaxone IV q 24 hours. Follows with [place] infectious disease. - patient reports BRYON at [facility]. Benge. - repeat blood cultures obtained. If recurrent consider transfer for ID evaluation. 7. myocardial injury / elevated troponin - suspect in setting of elevated demand from CHF. Troponins have downtrended. No further evaluation necessary inpatient. Was recommended for left and right heart cath as outpatient, after treatment of endocarditits. 8. Chronic presumed ILD - goal O2 88% on RA. Wean O2 as tolerated goal 88-96%. 9. Acute on Chronic anemia - monitor closely with starting of apixaban. Hg to 7.2 today, no evidence of active bleeding on exam. - repeat h/h this afternoon, consider transfusion. Code: Full, surrogate is patient's son DVT: start apixaban Dispo: inpatient, anticipated stay is beyond two midnights. Consider PT/OT depending on improvement. Additional history obtained from family. Discussed with case management. Quality VTE Deep Vein Thrombosis/Pulmonary Embolism Present on Admission: No
--- NOTE | 2023-09-09 15:15 | PT.IIE ---
Current Diagnoses Anemia, unspecified (09/08/23) Endocarditis, valve unspecified (09/08/23) Heart failure, unspecified (09/08/23) Acute kidney failure, unspecified (09/08/23) Medical History (Last Updated 09/08/23 @ 12:57 by Kevin Crisostomo DO) Anemia CHF (congestive heart failure) Endocarditis History of transesophageal echocardiography (BRYON) Physical Therapy Inpatient Evaluation/Re-Eval M1 PT/OT-IP Prior Functional Status Start: 09/09/23 17:29 Freq: NEEDED Status: Active Protocol: Document 09/09/23 15:15 AB (Rec: 09/09/23 17:45 AB [id number]) Medical Review Prior Functional Status Medical History Reviewed Yes Communication able to make needs known; [place] Mobility and Gait pt stated that he was modified independent with all mobilities and ambulation using fWW Social History Household Members spouse,children Living Arrangements House Number of Floors (Floors) Two Floors Number of Stairs To Enter/Railing? pt statys on main level of the house has 2 steps without rails to enter the house Home Environment Standard Height Toilet,Walk in Shower Home Equipment Front Wheel Walker,Hand Held Shower Additional Social History Comment pt lives with his spouse and daughter and can assist him if needed M2 PT-IP Current Condition Start: 09/09/23 17:29 Freq: NEEDED Status: Active Protocol: Document 09/09/23 15:15 AB (Rec: 09/09/23 17:45 AB [id number]) Physical Therapy Current Condition Current Condition Evaluation Date 09/09/23 Treatment Diagnosis CHF; difficulty in walking Onset Date 09/08/23 M3 PT-IP Subjective Start: 09/09/23 17:29 Freq: NEEDED Status: Active Protocol: Document 09/09/23 15:15 AB (Rec: 09/09/23 17:45 AB [id number]) Subjective Physical Therapy Visit Type Type Initial Evaluation Visit Start Time 15:15 Visit Stop Time 15:50 Number of STITCHER TAPE CONTROLLED MACHINE Visits 0 Physical Therapy Visit Comments Patient Comments agreeable to do PT Therapy Pain Assessment Pain Present Pain Present Denied Pain M4 PT-IP Mobility and Gait Start: 09/09/23 17:29 Freq: NEEDED Status: Active Protocol: Document 09/09/23 15:15 AB (Rec: 09/09/23 17:45 AB [id number]) PT-Bed Mobility Assessment Supine to Sit Supine to Sit Standby Assistance PT-Transfer Assessment Sit to and From Stand Sit to and from Stand Contact Guard Assistance,1 Person Assistance,Use of Upper Extremities Equipment Transfer Assistive Device Gait Belt,Front Wheeled Walker Orthotic/Prosthetic Devices or Brace: No Transfers Transfer Destination Chair Transfer Technique ambulated Transfer Ability Level of Assist Contact Guard Assistance,1 Person Assistance,Use of Upper Extremities Comments Mobility Comments pt supine in bed and agreeable to do PT. pt with O2 at 4L/ min via nasal cannula and nurse informed that O2 can be increased for pt to stay up to 88% O2. obtained PLOF and home set up from pt. pt is a mouth breather and educated on deep breathing in between activities. O2 sat at rest: 90-92% with 4L/min O2. pt completed supine to sit SBA . able to sit on EOB SBA. O2 sat decreased to 88%. required increase rest break and cues for deep breathing and O2 sat: 88-90%. O2 increased to 5L/min prior to standing. pt completed sit to stand CGA and ambulated in room ~ 8 ft using FWW CGA. presents with small shuffling gait. pt sat on the chair. ( +) SOB. O2 sat decreased to 74 %. cued for deep breathing and O2 increased to 6L/min. O2 sat increased to 82-84% and required >30 sec to increase to 88%. pt agreed to stay up on the chair. positioned pt on the chair. call light and table placed within reach. O2 sat at 92%. O2 decreased back to 4L/min. informed nurse. Gait Assessment Gait Gait Assistance Required: Contact Guard Assist Distance (Feet) 8 Able to Maintain Weight Bearing Status Yes During Gait Assistive Devices Assistive Device Gait Belt,Front Wheeled Walker Orthotic/Prosthetic Devices or Brace: No Gait Deviations General Gait Pattern Decreased Stride Length, Decreased Feet Clearance,Step- to Gait Factors Limiting Gait Function Factors Limiting Gait Function Decreased Activity Tolerance, Decreased Strength,Limited Range of Motion,Pain,Poor Balance,Poor Safety Awareness, Respiratory Distress PT-Balance Assessment Sitting Balance and Reactions Static Sitting Balance Ability Normal Dynamic Sitting Balance Ability Good Standing Balance and Reactions Static Standing Balance Ability Fair Dynamic Standing Balance Ability Fair Device Used FWW M5 PT-IP Objective Assessments Start: 09/09/23 17:29 Freq: NEEDED Status: Active Protocol: Document 09/09/23 15:15 AB (Rec: 09/09/23 17:45 AB [id number]) Orientation Orientation/Cognition Level of Alertness Alert Orientation Name,Place,Situation Language Function Ability Hard of Hearing Safety Awareness Decreased Safety Awareness Memory Description No Deficits Noted Gross Range of Motion Lower Extremity ROM Assessment Within Functional Limits Strength Comments Strength Comments RLE: 4-/5 LLE: 4/5 Coordination Assessment Gross Coordination Gross Coordination WNL Muscle Tone Muscle Tone WNL Yes M6 PT-IP Treatment Start: 09/09/23 17:29 Freq: NEEDED Status: Active Protocol: Document 09/09/23 15:15 AB (Rec: 09/09/23 17:45 AB [id number]) Physical Therapy Treatment Education Education Provided Safety M7 PT-IP Assessment and Plan Start: 09/09/23 17:29 Freq: NEEDED Status: Active Protocol: Document 09/09/23 15:15 AB (Rec: 09/09/23 17:45 AB [id number]) PT Summary Assessment and Plan Potential Rehabilitation Potential Fair Status of Condition at Evaluation Evolving Summary Impairments Pain,ROM,Strength,Balance, Coordination,Sensation,Tone, Cognition,Bed Mobility, Transfers,Gait,Activity Tolerance Assessment Summary pt is a 68 y/o M who was found by EMS at home with O2 sat at low 50s. per EMR: pt was just hospitalized from [facility] for endocarditis and pt was d/ c'd home and has increasing SOB. pt admitted for CHF. pt requiring CGA for mobility using FWW but unable to ambulate much due to decrease activity tolerance with O2 sat decreased to ~ 74% after ~ 8 ft of ambulation using FWW with 5L/min O2. pt required increase time to recover to 88 % with 6L/min O2. d/c plan depending on progress. will continue to see pt for in hospital PT to improve overall strength, activity tolerance and mobility independence. Goals Bed Mobility Goal Independent Transfer Goal Independent,Front Wheeled Walker Gait Goal Independent,Front Wheel Walker Gait Distance 100 Other Goals improve transfers and ambulation using LRAD ~ 200 ft mod I up/down 2 steps SBA Days to Meet Goals 10 Frequency of Treatment Frequency Of Treatment Once a Day Treatment Plan Physical Therapy Treatment Plan Bed Mobility Training,Transfer Training,Gait Training, Therapeutic Exercise,Balance Retraining,Discharge Planning, Hot or Cold Pack,Neuromuscular Re-ed,Coordination Retraining Precautions Other Precautions O2 sat Recommendations To Nursing Amount of Assist Needed 1 Person Assist Discharge Recommendations PT Discharge Recommendations Home with Assistance,Home Health Transportation Needs at Discharge Private Vehicle
[2023-09-09 18:28] LABS: Hematocrit 23.6 % (41-53); Hemoglobin 7.9 g/dL (13.5-17.5)
[2023-09-09] MEDS: SENNOSIDES 8.6 MG TABLET 17.2 MG PO (21:52)
[2023-09-09] MEDS: cefTRIAXone 2,000 MG in SODIUM CHLORIDE 0.9% 100 ML 200 MG IV (21:53)
[2023-09-10] VITALS (23 sets, daily range): BP systolic 101–122; BP diastolic 57–69; PULSE 57–83; RESP 10–44; TEMP 31–37.7; O2SAT 86–98
--- NOTE | 2023-09-10 00:41 | DI.RAD.S_ITS ---
PROCEDURE: XR CHEST 1V INDICATIONS: chf TECHNIQUE: One view of the chest was acquired. COMPARISON: [facility], CR, XR CHEST 1V, 09/08/2023, 0:15. [facility], CR, XR CHEST 2V, 08/22/2023, 10:38. FINDINGS: Surgical changes and devices: Central line from right-sided approach partially visualized. Lungs and pleura: Lungs are difficult to accurately assess due to severe generalized alveolar edema.. No pleural effusions or pneumothorax. Mediastinum: Mediastinal contours are partially obscured by the overlying prominent alveolar edema pattern. Heart size is likely enlarged. Bones and chest wall: No suspicious bony lesions. Overlying soft tissues appear unremarkable. IMPRESSION: Severe alveolar edema pattern throughout the lung parenchyma bilaterally obscuring clear visualization of portions of the cardiac silhouette. Severe alveolar inflammation or edema from cardiogenic origin is the presumed cause. Dictated by: Navin Das M.D. on 09/10/2023 at 1:05 Approved by: Navin Das M.D. on 09/10/2023 at 1:07
[2023-09-10 00:57] LABS: PCO2 ABG 36.2 mmHg (35-45); pH ABG 7.49 (7.35-7.45)
[2023-09-10 00:58] LABS: PO2 ABG 48 mmHg (80-100)
[2023-09-10 00:59] LABS: Fractionated Inspired Oxygen 44; HCO3 ABG 28 mmol/L (23-27); Oxygen Saturation ABG 87 % (95-100); TCO2 ABG 29 mmol/L (23-27)
[2023-09-10 01:00] LABS: Allen Test for ABG Passed? Yes, Passed; Blood Gas Collection Site Left Radial
[2023-09-10] MEDS: FUROSEMIDE 40 MG/4 ML VIAL IV ×4 (01:09→20:37)
[2023-09-10 02:25] LABS: pH ABG 7.48 (7.35-7.45)
[2023-09-10 02:26] LABS: Allen Test for ABG Passed? Yes, Passed; Blood Gas Collection Site Right Radial; Fractionated Inspired Oxygen 44; HCO3 ABG 29 mmol/L (23-27); Oxygen Saturation ABG 98 % (95-100); PCO2 ABG 38.4 mmHg (35-45); PO2 ABG 106 mmHg (80-100); TCO2 ABG 30 mmol/L (23-27)
[2023-09-10] MEDS: ALBUMIN HUMAN 25 GM/100 ML VIAL IV (03:31)
--- NOTE | 2023-09-10 03:58 | PC.NURSE ---
patient started shift maintaining sats >88% on 3lnc, but progressively required increasing oxygen needs, @ 0030 pt called and said he was getting a dizzy feeling, respiratory rate was 40 sats 70% on 7L oxymask, pt repositioned to high fowlers and listened to lung sounds, which were course throughout. Called Respiratory for assistance. Shana came up immediately and assessed the patient, there was documentation that patient had been on Bipap in ER and we contacted Dr Phillips who ordered Cxray, ABG Bipap lasix 40IV now and albumin 25 stat. ABG showed that patient was ventilating but not oxygenating with a PO2 of 48, CXRAY shows complete white out with extreme pulmonary edema. Pt placed on Bipap per respiratory and pt intialially struggled to relax but then was able to tolerate increasing pressures from Bipap. pt currently resting comfortably and in no distress maintaining sats @97%. will continue to monitor and treat as needed until ICU bed opens.
[2023-09-10] MEDS: LORazepam 2 MG/ML INJ 0.5 MG IV (05:26)
--- NOTE | 2023-09-10 07:45 | PC.NURSE ---
Addendum entered by Saima Lema R.N. 09/10/23 10:09: Held AM PO meds d/t pt unable to tolerate removal of BiPAP. Provider notified. Urine output 550 from almanza. Addendum entered by Saima Lema R.N. 09/10/23 08:54: Pt off BiPAP with 6L NC. Pt quickly desatted to 78%, coughing, SOB. Pt placed back on BiPAP, recovered back to 95% after 75 seconds. Provider notified. Original Note: Day shift: Pt in [id number], report given by ACU RN. Awakens to verbal stimuli, A&Ox3, unsure of day. BiPAP in place, settings 12/5 FiO2 35%, rate of 10. BP stable, HR stable, tachypnea when awoken. Pt tolerating BiPAP, O2 sat 96-97%. Fatigued, denies SOB, pain, dizziness. Will continue to monitor. Care ongoing.
--- NOTE | 2023-09-10 08:32 | DI.ECHO.S_ITS ---
[facility] +---------+ [facility] +---------+ : : [address] : : : : [id number] : : : : Phone: [phone] Echocardiogram Report + + :Name: KIA SOTO Study Date: 09/10/2023 Height: 66 in : :[facility] ReadingLocation: Weight: 127 lb : : Gender: Male BSA: 1.6 m2 : :: 1955 Age: 68 yrs BP: 121/63 mmHg: :Reason For Study: SHORTNESS OF BREATH, HEART FAILURE : :Ordering Physician: FELICITY, : :ZULY ADKINS Performed By: Hedy Oconnell : :Referring: ZULY BLEVINS : + + Interpretation Summary LV severely dilated when indexed to BSA The left ventricle is moderate-severely dilated. The ejection fraction is estimated to be 55-60%. Left ventricular wall motion is normal. The mitral leaflets appear thickened, hooded, and/or redundant, consistent with myxomatous degeneration There is prolapse of the posterior mitral valve leaflet(s). There is severe mitral regurgitation. There is an eccentric jet of mitral regurgitation that is directed anteroseptally. Procedure: The study quality was technically limited. The study quality was technically adequate. Comparison is made with the echocardiogram of 08/22/2023. The heart rate ranged between 63-73 bpm during the study. Left Ventricle: The left ventricle is moderate-severely dilated. There is normal left ventricular wall thickness. The ejection fraction is estimated to be 55-60%. Left ventricular wall motion is normal. Mitral Valve: There is prolapse of the posterior mitral valve leaflet(s). The mitral leaflets appear thickened, hooded, and/or redundant, consistent with myxomatous degeneration. There is severe mitral regurgitation. There is an eccentric jet of mitral regurgitation that is directed anteroseptally. Great Vessels: The IVC is of normal diameter and collapses greater than 50% with a sniff. This suggests a low right atrial pressure of 3 mm Hg. Pericardium/ Pleura There is a large left-sided pleural effusion. MMode/2D Measurements & Calculations LVIDd: 6.7 cm IVC diam: 1.9 cm LVIDs: 4.6 cm FS: 31.1 % IVSd: 0.75 cm LVPWd: 0.82 cm LV mendes. diameter/BSA (cm/m^2): 4.0 LV sys. diameter/BSA (cm/m^2): 2.8 Doppler Measurements & Calculations MR ERO: 0.73 cm2 MR PISA: 9.7 cm2 MR flow rate: 407.3 cm3/sec MR PISA radius: 1.2 cm Reading Physician:01:26 PM
[2023-09-10 09:24] LABS: Add Manual Diff / Slide Review NO; Basophils Absolute Auto 0 /uL (0-100); Basophils Percent Auto 0.4 % (0-2); Eosinophils Absolute Auto 100 /uL (0-450); Eosinophils Percent Auto 0.7 % (2-4); Hemoglobin 7.1 g/dL (13.5-17.5); Lymphocytes Absolute Auto 900 /uL (1100-4500); Lymphocytes Percent Auto 11.5 % (25-40); Mean Corpuscular HGB Conc 33.8 % (30-36); Mean Corpuscular Hemoglobin 31.8 PG (26-34); Mean Corpuscular Volume 94.3 fL (80-100); Monocytes Absolute Auto 500 /uL (0-900); Monocytes Percent Auto 5.7 % (3-14); Neutrophils Absolute Auto 6700 /uL (1500-7000); Neutrophils Percent Auto 81.7 % (50-75); Platelet Count 90 X10^3/uL (150-400); Red Blood Cell Count 2.23 X10^6/uL (4.5-5.9); Red Cell Distribution Width 21.1 % (11.6-14.8); White Blood Cell Count 8.1 X10^3/uL (4.5-11.0)
--- NOTE | 2023-09-10 09:25 | PT-IP ANOTE ---
PT speaks with nsg who recommends PT hold today d/t pt cannot tolerate being of BiPap, with respiratory concerns. PT in agreement and will hold PT today.
[2023-09-10 09:37] LABS: Alanine Aminotransferase 15 IU/L (<50); Albumin 2.5 g/dL (3.5-5.0); Albumin Globulin Ratio 0.7 (1.0-2.8); Alkaline Phosphatase 58 U/L (38-126); Aspartate Aminotransferase 30 IU/L (17-59); Bilirubin Total 0.7 mg/dL (0.2-1.3); Calcium 8.3 mg/dL (8.4-10.2); Globulin 3.5 g/dL (1.7-4.1); HEMOLYSIS < 15 (0-50); Magnesium 1.7 mg/dL (1.6-2.3)
[2023-09-10 09:44] LABS: NT-proBNP (BNP-Adult 18+) 20200 pg/mL (<125)
[2023-09-10 09:46] LABS: Troponin I 0.059 ng/mL (0.01-0.034)
[2023-09-10 09:47] LABS: BUN Creatinine Ratio 23.4 (6-22); Blood Urea Nitrogen 62 mg/dL (9-20); Carbon Dioxide 31 mmol/L (22-32); Chloride 101 mmol/L (98-107); Estimated Glomerular Filt Rate 25 mL/min (>60); Glucose 113 mg/dL (80-110); Potassium 3.4 mmol/L (3.4-5.1); Sodium 135 mmol/L (137-145)
[2023-09-10 09:56] LABS: Anisocytosis 2+
--- NOTE | 2023-09-10 11:51 | CM.DPNOTE ---
DCP Note ACQUISITIONS EDITOR reviewed EMR. Per hospitalist in morning rounds, pt is complex medically and may require transfer to [facility] for higher level of care. Initial PT eval rec home with assistance vs HH. CM team will follow closely. Will arrange HH if pt does not transfer/if pt is interested. Per previous DCP assessment, no identified CM needs. Plan: anticipate home with spouse, potential HH, vs Transfer to higher level of care. CM team will follow closely. AICHA Mcgraw
--- NOTE | 2023-09-10 12:13 | PM.CN.EICU ---
History of Present Illness Consult details IF CAMERA ACTIVATED, patient seen via real-time interactive audiovisual communication: Camera activated Date Patient Seen: 09/10/23 Chief complaint: on cpap, sob Consent obtained for tele-non destructive tester care: Yes Patient Location: ICU Provider location (State): [place] Other participants/roles: RN Narrative: 68 year old male, with recent PMH of afib, on ceftriaxone for possible subactue endocarditis, CHFrEF (40-45%) with MR, BPH, CKD (unknown baseline cr), anemia trasnferred to the ICU for acute hypoemic resp failure 2/2 to pulmonary edema. Currently comfortable on 1l NC conversive and in no resp faistress. while he is known to have a low EF, he was noted to have recent hospitalization with endocarditis and BRYON done there ( results unclear) he remains on ceftriaxone daily. it is owrth noting that last TTE we have form 06/21 noted severe mitral valve regurgitation as well. It is unclear to me if he has been evlauated by cardiothoracic surgery Labs reviewed Creatining eleavted but trending down overall from OSH plt 90 no eleavted wbc or bands PFSH Medical History (Updated 09/10/23 @ 12:28 by Rosendo Lemos MD) History of transesophageal echocardiography (BRYON) Endocarditis CHF (congestive heart failure) Anemia Social History household members: spouse and children Smoking Status: Never smoker alcohol intake: never Current Medications Current Medications Medications: Home Medications acetaminophen 325 mg tablet 325 mg PO PRN PRN pain 09/08/23 [History Confirmed 09/08/23] amiodarone 400 mg tablet 400 mg PO BID 09/08/23 [History Confirmed 09/08/23] calcium acetate(phosphat bind) 667 mg capsule 667 mg PO 3XD 09/08/23 [History Confirmed 09/08/23] calcium carbonate 200 mg calcium (500 mg) chewable tablet (Antacid (calcium carbonate)) 500 mg PO PRN PRN Acid Reflux 09/08/23 [History Confirmed 09/08/23] ceftriaxone 2 gram intravenous piggyback 2 g IV DAILY 09/08/23 [History Confirmed 09/08/23] furosemide 20 mg tablet 20 mg PO DAILY 09/08/23 [History Confirmed 09/08/23] metoprolol succinate 25 mg tablet,extended release 24 hr 25 mg PO DAILY 09/08/23 [History Confirmed 09/08/23] ondansetron 4 mg disintegrating tablet 4 mg PO Q6H PRN Nausea And Vomiting 09/08/23 [History Confirmed 09/08/23] tamsulosin 0.4 mg capsule 0.4 mg PO DAILY 09/08/23 [History Confirmed 09/08/23] vitamin B comp no.3-folic acid 1 mg-vit C 60 mg-biotin 300 mcg tablet ([facility]) 1 tab PO QPM 09/08/23 [History Confirmed 09/08/23] Visit Medications (administered) Generic Name Dose Route Start Last Admin Trade Name Freq PRN Reason Stop Dose Admin Amiodarone HCl 400 mg 09/08/23 09:00 09/10/23 09:43 Amiodarone 200 Mg Tablet PO Not Given BID SHERIF Apixaban 2.5 mg 09/08/23 13:15 09/10/23 09:43 Apixaban 5 Mg Tablet PO Not Given BID SHERIF Calcium Acetate 667 mg 09/08/23 09:00 09/10/23 09:43 Calcium Acetate 667 Mg Capsule PO Not Given TID SHERIF Furosemide 40 mg 09/08/23 05:15 09/10/23 05:21 Furosemide 40 Mg/4 Ml Vial IV 40 mg Q8H SHERIF Administration Heparin Sodium (Porcine) 50 unit 09/09/23 21:00 09/10/23 10:04 Heparin Flush (Cl/Picc/Mid-Line) 50 Unit/5 Ml Syringe IV 50 unit BID SHERIF Administration Ceftriaxone Sodium 2,000 mg/ 100 mls @ 200 mls/hr 09/08/23 21:00 09/09/23 21:53 Sodium Chloride IV 200 mls/hr BEDTIME SHERIF Administration Lorazepam 0.5 mg 09/10/23 01:58 09/10/23 05:26 Lorazepam 2 Mg/Ml Inj IV 0.5 mg Q2HR PRN Administration Anxiety Metoprolol Succinate 25 mg 09/08/23 09:00 09/10/23 09:43 Metoprolol Er 25 Mg Tablet PO Not Given DAILY SHERIF Pantoprazole Sodium 20 mg 09/08/23 06:00 09/10/23 09:[address] 20 Mg Tablet PO Not Given 0600 SHERIF Sennosides 17.2 mg 09/08/23 21:00 09/09/23 21:52 Sennosides 8.6 Mg Tablet PO 17.2 mg BEDTIME SHERIF Administration Spironolactone 25 mg 09/08/23 09:00 09/10/23 09:44 Spironolactone 25 Mg Tablet PO Not Given DAILY SHERIF Tamsulosin HCl 0.4 mg 09/08/23 09:00 09/10/23 09:44 Tamsulosin 0.4 Mg Capsule PO Not Given DAILY SHERIF Exam Vital Signs (past 8 hours): - 09/10/23 07:00 09/10/23 07:19 09/10/23 08:00 Temperature Pulse Rate Respiratory Rate Blood Pressure Pulse Oximetry 95 Oxygen Delivery Method BiPAP BiPAP Oxygen Flow Rate Fraction of Inspired Oxygen 35 09/10/23 08:14 09/10/23 08:14 09/10/23 09:43 Temperature 98 F Pulse Rate 65 62 78 Respiratory Rate 28 H 25 H Blood Pressure 112/62 101/58 L Pulse Oximetry 97 95 Oxygen Delivery Method Oxygen Flow Rate 0 Fraction of Inspired Oxygen 09/10/23 10:37 Temperature Pulse Rate 64 Respiratory Rate 26 H Blood Pressure Pulse Oximetry 97 Oxygen Delivery Method High Flow Nasal Cannula Oxygen Flow Rate 8 Fraction of Inspired Oxygen Fraction of Inspired Oxygen 35 Oxygen Delivery Method High Flow Nasal Cannula Oxygen Flow Rate 8 Narrative Exam Narrative: comfortable NAD on NC symmetric chest rise tachycardic Objective Labs 09/10/23 09:10 09/10/23 09:10 Labs: Laboratory Results - last 24 hr 09/09/23 09/10/23 09/10/23 18:23 00:40 02:12 WBC RBC Hgb 7.9 L Hct 23.6 L MCV MCH MCHC RDW Plt Count Neut % (Auto) Lymph % (Auto) [place] % (Auto) Eos % (Auto) Baso % (Auto) Neut # (Auto) Lymph # (Auto) [place] # (Auto) Eos # (Auto) Baso # (Auto) RBC Morphology Anisocytosis ABG Sample Site Left radial Right radial ABG pH 7.49 H 7.48 H ABG pCO2 36.2 38.4 ABG pO2 48 L* 106 H ABG HCO3 28 H 29 H ABG Total CO2 29 H 30 H ABG O2 Saturation 87 L 98 ABG Base Excess 4.0 H 5.0 H FiO2 44 44 Sodium Potassium Chloride Carbon Dioxide BUN Creatinine Estimated GFR BUN/Creatinine Ratio Glucose Calcium Magnesium Total Bilirubin AST ALT Alkaline Phosphatase Troponin I NT-Pro-B Natriuret Pep Total Protein Albumin Globulin Albumin/Globulin Ratio 09/10/23 09:10 WBC 8.1 RBC 2.23 L Hgb 7.1 L Hct 21.0 L MCV 94.3 MCH 31.8 MCHC 33.8 RDW 21.1 H Plt Count 90 L Neut % (Auto) 81.7 H Lymph % (Auto) 11.5 L [place] % (Auto) 5.7 Eos % (Auto) 0.7 L Baso % (Auto) 0.4 Neut # (Auto) 6700 Lymph # (Auto) 900 L [place] # (Auto) 500 Eos # (Auto) 100 Baso # (Auto) 0 RBC Morphology See below Anisocytosis 2+ H ABG Sample Site ABG pH ABG pCO2 ABG pO2 ABG HCO3 ABG Total CO2 ABG O2 Saturation ABG Base Excess FiO2 Sodium 135 L Potassium 3.4 Chloride 101 Carbon Dioxide 31 BUN 62 H Creatinine 2.65 H Estimated GFR 25 L BUN/Creatinine Ratio 23.4 H Glucose 113 H Calcium 8.3 L Magnesium 1.7 Total Bilirubin 0.7 AST 30 ALT 15 Alkaline Phosphatase 58 Troponin I 0.059 H NT-Pro-B Natriuret Pep 41237 H Total Protein 6.0 L Albumin 2.5 L Globulin 3.5 Albumin/Globulin Ratio 0.7 L Assessment & Plan Assessment and plan (1) Endocarditis: Status: Acute (2) CHF (congestive heart failure): Status: Acute (3) BRYANNA (acute kidney injury): Status: Acute (4) Acute hypoxemic respiratory failure: Status: Acute (5) Thrombocytopenia: Status: Acute Assessment & Plan narrative: continue o2 via NC bipap as needed f/u repeat echo map goal >65 rate control - on amio may need CTSx eval for mitral valve adat trenb bmp monitor UO agree with diuresis on ceftriaxone f/u cx dvt ppx - eliquis total CCT 35 min
[2023-09-10] MEDS: MAGNESIUM CHLORIDE 64 MG TABLET 128 MG PO (12:33)
--- NOTE | 2023-09-10 14:36 | PM.PN.1 ---
Subjective Subjective Interval history: 68 year old male with recent complex hospitalization at [facility], admitted for acute respiratory failure with hypoxia and presumed CHF exacerbation. Overnight he became acutely worse, required BiPAP and moved to the ICU. Repeat TTE ordered this morning. Was given additional furosemide. Hg 7.1 today. BroBNP marked increase to 20,200. Exam Vital Signs (past 8 hours): - 09/10/23 07:00 09/10/23 07:19 09/10/23 08:00 Temperature Pulse Rate Respiratory Rate Blood Pressure Pulse Oximetry 95 Oxygen Delivery Method BiPAP BiPAP Oxygen Flow Rate Fraction of Inspired Oxygen 35 09/10/23 08:14 09/10/23 08:14 09/10/23 08:30 Temperature 98 F Pulse Rate 65 62 Respiratory Rate 28 H 25 H Blood Pressure 112/62 106/57 L Pulse Oximetry 97 95 Oxygen Delivery Method Oxygen Flow Rate 0 Fraction of Inspired Oxygen 09/10/23 08:30 09/10/23 09:00 09/10/23 09:00 Temperature Pulse Rate 63 66 Respiratory Rate 29 H 44 H Blood Pressure 113/60 Pulse Oximetry 96 96 Oxygen Delivery Method Oxygen Flow Rate Fraction of Inspired Oxygen 09/10/23 09:30 09/10/23 09:30 09/10/23 09:43 Temperature Pulse Rate 62 78 Respiratory Rate 23 Blood Pressure 101/58 L 101/58 L Pulse Oximetry 96 Oxygen Delivery Method Oxygen Flow Rate Fraction of Inspired Oxygen 09/10/23 10:37 09/10/23 12:00 Temperature Pulse Rate 64 Respiratory Rate 26 H Blood Pressure Pulse Oximetry 97 94 Oxygen Delivery Method High Flow Nasal Cannula High Flow Nasal Cannula Oxygen Flow Rate 8 8 Fraction of Inspired Oxygen Fraction of Inspired Oxygen 35 Oxygen Delivery Method High Flow Nasal Cannula Oxygen Flow Rate 8 Narrative Exam Narrative: comfortable NAD on NC symmetric chest rise tachycardic Objective Labs 09/10/23 09:10 09/10/23 09:10 Labs: Laboratory Results - last 24 hr 09/09/23 09/10/23 09/10/23 18:23 00:40 02:12 WBC RBC Hgb 7.9 L Hct 23.6 L MCV MCH MCHC RDW Plt Count Neut % (Auto) Lymph % (Auto) [place] % (Auto) Eos % (Auto) Baso % (Auto) Neut # (Auto) Lymph # (Auto) [place] # (Auto) Eos # (Auto) Baso # (Auto) RBC Morphology Anisocytosis ABG Sample Site Left radial Right radial ABG pH 7.49 H 7.48 H ABG pCO2 36.2 38.4 ABG pO2 48 L* 106 H ABG HCO3 28 H 29 H ABG Total CO2 29 H 30 H ABG O2 Saturation 87 L 98 ABG Base Excess 4.0 H 5.0 H FiO2 44 44 Sodium Potassium Chloride Carbon Dioxide BUN Creatinine Estimated GFR BUN/Creatinine Ratio Glucose Calcium Magnesium Total Bilirubin AST ALT Alkaline Phosphatase Troponin I NT-Pro-B Natriuret Pep Total Protein Albumin Globulin Albumin/Globulin Ratio 09/10/23 09:10 WBC 8.1 RBC 2.23 L Hgb 7.1 L Hct 21.0 L MCV 94.3 MCH 31.8 MCHC 33.8 RDW 21.1 H Plt Count 90 L Neut % (Auto) 81.7 H Lymph % (Auto) 11.5 L [place] % (Auto) 5.7 Eos % (Auto) 0.7 L Baso % (Auto) 0.4 Neut # (Auto) 6700 Lymph # (Auto) 900 L [place] # (Auto) 500 Eos # (Auto) 100 Baso # (Auto) 0 RBC Morphology See below Anisocytosis 2+ H ABG Sample Site ABG pH ABG pCO2 ABG pO2 ABG HCO3 ABG Total CO2 ABG O2 Saturation ABG Base Excess FiO2 Sodium 135 L Potassium 3.4 Chloride 101 Carbon Dioxide 31 BUN 62 H Creatinine 2.65 H Estimated GFR 25 L BUN/Creatinine Ratio 23.4 H Glucose 113 H Calcium 8.3 L Magnesium 1.7 Total Bilirubin 0.7 AST 30 ALT 15 Alkaline Phosphatase 58 Troponin I 0.059 H NT-Pro-B Natriuret Pep 98182 H Total Protein 6.0 L Albumin 2.5 L Globulin 3.5 Albumin/Globulin Ratio 0.7 L [facility] Medical History (Updated 09/10/23 @ 12:28 by Rosendo Lemos MD) History of transesophageal echocardiography (BRYON) Endocarditis CHF (congestive heart failure) Anemia Social History household members: spouse and children Smoking Status: Never smoker alcohol intake: never Assessment & Plan Assessment & Plan narrative: 1. Acute on chronic combined systolic and diastolic heart failure\ - recent TTE and BRYON at OSH. EF 40-45%. - continue furosemide 40 mg IV TID, monitor Cr closely. Overnight worsening respiratory failure on BiPAP now. - s/p 1U PRBC for anemia yesterday. - repeat limited TTE to reassess mitral valve, EF ordered today. 2. CKD, unknown baseline staging - continue furosemide, renally dose medications. Appears stable from previous values. Cr was as high as 4 at OSH. Cr has been stable between 2.6 and 2.7 this admission. 3. Acute respiratory failure with hypoxia - suspect due to problem 1 above. Continue diuresis. - no wheeing but if minimal improvement consider steroids for possible ILD flare, though this is highly unlikely at this time. - albuterol nebs prn. - he is on eliquis, unlikely 4. BPH with urinary obstruction - continue almanza and flomax 5. presumed chronic atrial fibrillation - continue home amiodarone and metoprolol. - continue telemetry monitoring - started low dose (2.5 mg BID) apixaban with elevated cr. and is <60Kg. 6. subacute endocarditis - continue ceftriaxone IV q 24 hours. Follows with [facility]. - patient reports BRYON at [facility]. - repeat blood cultures obtained but negative thus far. If recurrent consider transfer for ID evaluation. 7. myocardial injury / elevated troponin - suspect in setting of elevated demand from CHF. Troponins have downtrended. No further evaluation necessary inpatient. Was recommended for left and right heart cath as outpatient, after treatment of endocarditits. 8. Chronic presumed ILD - goal O2 88% on RA. Wean O2 as tolerated goal 88-96%. 9. Acute on Chronic anemia - monitor closely with starting of apixaban. Hg to 7.2 today, no evidence of active bleeding on exam. - given 1U PRBC yesterday, no evidence of active bleeding. Code: Full, surrogate is patient's son DVT: start apixaban Dispo: inpatient, anticipated stay is beyond two midnights. With his acute decompenstation, if he is unable to come off of BiPAP will look at transfer back to [facility] for higher level of care along with cardiology and possible cardiothoracic surgery given his severe MR, MVP with symptoms not responding to current medical therapies yet. Discussed with case management and bedside staff today, nursing services manager given possible need for transfer. Quality VTE Deep Vein Thrombosis/Pulmonary Embolism Present on Admission: No
[2023-09-10] MEDS: CALCIUM ACETATE 667 MG CAPSULE PO ×2 (17:26→20:37)
[2023-09-10] MEDS: predniSONE 20 MG TABLET 60 MG PO (18:33)
[2023-09-10] MEDS: PIPERACILLIN/TAZO 3.375 GM in SODIUM CHLORIDE 0.9% 100 ML IV (18:33)
[2023-09-10 19:58] LABS: MRSA (Nasal) PCR Not Detected (Not Detect)
[2023-09-10] MEDS: SODIUM CHLORIDE 0.9% FLUSH 10 ML IV (20:37)
[2023-09-10] MEDS: AMIODARONE 200 MG TABLET 400 MG PO (20:37)
[2023-09-10] MEDS: SENNOSIDES 8.6 MG TABLET 17.2 MG PO (20:38)
[2023-09-10] MEDS: APIXABAN 5 MG TABLET 2.5 MG PO (20:38)
[2023-09-10] MEDS: cefTRIAXone 2,000 MG in SODIUM CHLORIDE 0.9% 100 ML 200 MG IV (20:39)
--- NOTE | 2023-09-10 20:43 | PM.ICURNDS ---
- Date Patient Seen: 09/10/23 Time Patient Seen: 20:43 :: This patient was seen via real time interactive two-way audiovisual telecommunication. Note: no acute events during the day feeling better, no new complaints will continue diuretics, replace lytes prn
[2023-09-11] VITALS (31 sets, daily range): BP systolic 110–133; BP diastolic 56–73; PULSE 56–85; RESP 18–48; TEMP 36.4–37.2; O2SAT 87–100
[2023-09-11] MEDS: PIPERACILLIN/TAZO 3.375 GM in SODIUM CHLORIDE 0.9% 100 ML IV ×3 (02:08→18:31)
[2023-09-11] MEDS: PANTOPRAZOLE DR 20 MG TABLET PO (06:20)
[2023-09-11] MEDS: FUROSEMIDE 40 MG/4 ML VIAL IV ×3 (06:20→21:10)
--- NOTE | 2023-09-11 06:38 | PC.NURSE ---
Hand Pleater Note-Patient has been A/Ox4, fatigued in the evening, slept well, more energy in the am. On HFNC 5-10L, SpO2 >94% at rest, only desats with activity or coughing, recovers fair. Minimal sputum, small amount sent to lab. Has been in SR, BP stable- see vital trends. IV Lasix and abx given as ordered. Up to BSC x2 for large soft brown BMs. 775ml UOP.
[2023-09-11 06:43] LABS: Add Manual Diff / Slide Review NO; Basophils Absolute Auto 0 /uL (0-100); Basophils Percent Auto 0.7 % (0-2); Eosinophils Absolute Auto 0 /uL (0-450); Eosinophils Percent Auto 0.1 % (2-4); Hematocrit 22.4 % (41-53); Hemoglobin 7.5 g/dL (13.5-17.5); Lymphocytes Absolute Auto 700 /uL (1100-4500); Lymphocytes Percent Auto 12.8 % (25-40); Mean Corpuscular HGB Conc 33.7 % (30-36); Mean Corpuscular Hemoglobin 31.9 PG (26-34); Mean Corpuscular Volume 94.6 fL (80-100); Monocytes Absolute Auto 100 /uL (0-900); Monocytes Percent Auto 2.8 % (3-14); Neutrophils Absolute Auto 4400 /uL (1500-7000); Neutrophils Percent Auto 83.6 % (50-75); Platelet Count 89 X10^3/uL (150-400); Red Blood Cell Count 2.37 X10^6/uL (4.5-5.9); Red Cell Distribution Width 20.9 % (11.6-14.8); White Blood Cell Count 5.2 X10^3/uL (4.5-11.0)
[2023-09-11 06:58] LABS: Alanine Aminotransferase 16 IU/L (<50); Albumin Globulin Ratio 0.9 (1.0-2.8); Alkaline Phosphatase 58 U/L (38-126); Aspartate Aminotransferase 31 IU/L (17-59); BUN Creatinine Ratio 21.5 (6-22); Bilirubin Total 0.8 mg/dL (0.2-1.3); Blood Urea Nitrogen 61 mg/dL (9-20); Calcium 8.6 mg/dL (8.4-10.2); Carbon Dioxide 31 mmol/L (22-32); Chloride 100 mmol/L (98-107); Estimated Glomerular Filt Rate 23 mL/min (>60); Globulin 3.3 g/dL (1.7-4.1); Glucose 137 mg/dL (80-110); HEMOLYSIS < 15 (0-50); Magnesium 1.9 mg/dL (1.6-2.3); Potassium 3.5 mmol/L (3.4-5.1); Sodium 135 mmol/L (137-145); Total Protein 6.3 g/dL (6.3-8.2)
[2023-09-11 07:02] LABS: Anisocytosis 1+
[2023-09-11 07:03] LABS: Rouleaux 2+
[2023-09-11] MEDS: SPIRONOLACTONE 25 MG TABLET PO (08:09)
[2023-09-11] MEDS: METOPROLOL ER 25 MG TABLET PO (08:10)
[2023-09-11] MEDS: TAMSULOSIN 0.4 MG CAPSULE PO (08:10)
[2023-09-11] MEDS: SODIUM CHLORIDE 0.9% FLUSH 10 ML IV ×2 (08:12→21:11)
[2023-09-11] MEDS: predniSONE 20 MG TABLET 60 MG PO (08:12)
[2023-09-11] MEDS: AMIODARONE 200 MG TABLET 400 MG PO ×2 (08:12→21:11)
[2023-09-11] MEDS: CALCIUM ACETATE 667 MG CAPSULE PO ×3 (08:13→21:11)
[2023-09-11] MEDS: APIXABAN 5 MG TABLET 2.5 MG PO ×2 (08:13→21:10)
--- NOTE | 2023-09-11 09:46 | PM.PN.EICU ---
Subjective Subjective IF CAMERA ACTIVATED, patient seen via real-time interactive audiovisual communication: Camera activated Consent obtained for tele-machine rug cleaner care: Yes Patient Location: ICU Provider location (State): [place] Other participants/roles: Dr. Crisostomo, Bedside nursing team Interval history: no acute events onvernight comfortable Current Medications Current Medications Medications: Home Medications acetaminophen 325 mg tablet 325 mg PO PRN PRN pain 09/08/23 [History Confirmed 09/08/23] amiodarone 400 mg tablet 400 mg PO BID 09/08/23 [History Confirmed 09/08/23] calcium acetate(phosphat bind) 667 mg capsule 667 mg PO 3XD 09/08/23 [History Confirmed 09/08/23] calcium carbonate 200 mg calcium (500 mg) chewable tablet (Antacid (calcium carbonate)) 500 mg PO PRN PRN Acid Reflux 09/08/23 [History Confirmed 09/08/23] ceftriaxone 2 gram intravenous piggyback 2 g IV DAILY 09/08/23 [History Confirmed 09/08/23] furosemide 20 mg tablet 20 mg PO DAILY 09/08/23 [History Confirmed 09/08/23] metoprolol succinate 25 mg tablet,extended release 24 hr 25 mg PO DAILY 09/08/23 [History Confirmed 09/08/23] ondansetron 4 mg disintegrating tablet 4 mg PO Q6H PRN Nausea And Vomiting 09/08/23 [History Confirmed 09/08/23] tamsulosin 0.4 mg capsule 0.4 mg PO DAILY 09/08/23 [History Confirmed 09/08/23] vitamin B comp no.3-folic acid 1 mg-vit C 60 mg-biotin 300 mcg tablet ([facility]ira Rx) 1 tab PO QPM 09/08/23 [History Confirmed 09/08/23] Visit Medications (administered) Generic Name Dose Route Start Last Admin Trade Name Freq PRN Reason Stop Dose Admin Amiodarone HCl 400 mg 09/08/23 09:00 09/11/23 08:12 Amiodarone 200 Mg Tablet PO 400 mg BID SHERIF Administration Apixaban 2.5 mg 09/08/23 13:15 09/11/23 08:13 Apixaban 5 Mg Tablet PO 2.5 mg BID SHERIF Administration Calcium Acetate 667 mg 09/08/23 09:00 09/11/23 08:13 Calcium Acetate 667 Mg Capsule PO 667 mg TID SHERIF Administration Furosemide 40 mg 09/08/23 05:15 09/11/23 06:20 Furosemide 40 Mg/4 Ml Vial IV 40 mg Q8H SHERIF Administration Heparin Sodium (Porcine) 50 unit 09/09/23 21:00 09/11/23 08:12 Heparin Flush (Cl/Picc/Mid-Line) 50 Unit/5 Ml Syringe IV 50 unit BID SHERIF Administration Piperacillin Sod/Tazobactam 100 mls @ 25 mls/hr 09/10/23 18:15 09/11/23 06:21 Sod 3.375 gm/ Sodium Chloride IV Infused Q8H SHERIF Infusion Lorazepam 0.5 mg 09/10/23 01:58 09/10/23 05:26 Lorazepam 2 Mg/Ml Inj IV 0.5 mg Q2HR PRN Administration Anxiety Metoprolol Succinate 25 mg 09/08/23 09:00 09/11/23 08:10 Metoprolol Er 25 Mg Tablet PO 25 mg DAILY SHERIF Administration Pantoprazole Sodium 20 mg 09/08/23 06:00 09/11/23 06:[address] 20 Mg Tablet PO 20 mg 0600 SHERIF Administration Prednisone 60 mg 09/11/23 09:00 09/11/23 08:12 Prednisone 20 Mg Tablet PO 60 mg DAILY SHERIF Administration Sennosides 17.2 mg 09/08/23 21:00 09/10/23 20:38 Sennosides 8.6 Mg Tablet PO 17.2 mg BEDTIME SHERIF Administration Sodium Chloride 10 ml 09/10/23 21:00 09/11/23 08:12 Sodium Chloride 0.9% Flush IV 10 ml BID SHERIF Administration Spironolactone 25 mg 09/08/23 09:00 09/11/23 08:09 Spironolactone 25 Mg Tablet PO 25 mg DAILY SHERIF Administration Tamsulosin HCl 0.4 mg 09/08/23 09:00 09/11/23 08:10 Tamsulosin 0.4 Mg Capsule PO 0.4 mg DAILY SHERIF Administration Objective Ventilator Parameters: Ventilator Settings FiO2 30 Labs 09/11/23 06:30 09/11/23 06:30 Labs: Laboratory Results - last 24 hr 09/10/23 09/10/23 09/11/23 09:10 18:44 06:30 WBC 5.2 RBC 2.37 L Hgb 7.5 L Hct 22.4 L MCV 94.6 MCH 31.9 MCHC 33.7 RDW 20.9 H Plt Count 89 L Neut % (Auto) 83.6 H Lymph % (Auto) 12.8 L [place] % (Auto) 2.8 L Eos % (Auto) 0.1 L Baso % (Auto) 0.7 Neut # (Auto) 4400 Lymph # (Auto) 700 L [place] # (Auto) 100 Eos # (Auto) 0 Baso # (Auto) 0 RBC Morphology See below Not Reportable Anisocytosis 2+ H 1+ H Rouleaux 2+ H Sodium 135 L 135 L Potassium 3.4 3.5 Chloride 101 100 Carbon Dioxide 31 31 BUN 62 H 61 H Creatinine 2.65 H 2.84 H Estimated GFR 25 L 23 L BUN/Creatinine Ratio 23.4 H 21.5 Glucose 113 H 137 H Calcium 8.3 L 8.6 Magnesium 1.7 1.9 Total Bilirubin 0.7 0.8 AST 30 31 ALT 15 16 Alkaline Phosphatase 58 58 Troponin I 0.059 H NT-Pro-B Natriuret Pep 62486 H Total Protein 6.0 L 6.3 Albumin 2.5 L 3.0 L Globulin 3.5 3.3 Albumin/Globulin Ratio 0.7 L 0.9 L Nasal Screen MRSA (PCR) Not detected Exam Vital Signs (past 8 hours): - 09/11/23 02:00 09/11/23 02:00 09/11/23 03:00 Temperature Pulse Rate 66 Respiratory Rate 24 Blood Pressure 110/57 L 111/56 L Pulse Oximetry 97 Oxygen Delivery Method Oxygen Flow Rate 6 Fraction of Inspired Oxygen 09/11/23 03:00 09/11/23 04:00 09/11/23 04:00 Temperature 98.2 F Pulse Rate 66 69 Respiratory Rate 29 H 23 Blood Pressure 121/73 Pulse Oximetry 94 97 Oxygen Delivery Method Oxygen Flow Rate 6 5 Fraction of Inspired Oxygen 09/11/23 04:00 09/11/23 04:45 09/11/23 07:03 Temperature Pulse Rate 63 Respiratory Rate 18 Blood Pressure Pulse Oximetry 98 99 Oxygen Delivery Method High Flow Nasal Cannula High Flow Nasal Cannula High Flow Nasal Cannula Humidification Oxygen Flow Rate 5 5 Fraction of Inspired Oxygen 40 09/11/23 08:00 09/11/23 08:00 04/15/24 08:00 Temperature Pulse Rate 63 Respiratory Rate 32 H Blood Pressure 133/70 Pulse Oximetry 92 92 Oxygen Delivery Method High Flow Nasal Cannula Nasal Cannula Oxygen Flow Rate 4 4 Fraction of Inspired Oxygen 09/11/23 08:10 09/11/23 08:40 09/11/23 08:40 Temperature Pulse Rate 85 61 Respiratory Rate Blood Pressure 133/70 Pulse Oximetry 92 Oxygen Delivery Method High Flow Nasal Cannula Oxygen Flow Rate 10 Fraction of Inspired Oxygen Fraction of Inspired Oxygen 40 SaO2/FiO2 Ratio 247 Oxygen Delivery Method High Flow Nasal Cannula Oxygen Flow Rate 10 Quality TeleICU VTE Deep Vein Thrombosis/Pulmonary Embolism Present on Admission: No Assessment & Plan Assessment and plan (1) Endocarditis: Status: Acute (2) CHF (congestive heart failure): Status: Acute (3) BRYANNA (acute kidney injury): Status: Acute (4) Acute hypoxemic respiratory failure: Status: Acute (5) Thrombocytopenia: Status: Acute Assessment & Plan narrative: Suggest -neuroechecks/seizure precautions -avoid benzos/opiods -keep sat 88-92% -bipap/hfnc prn -keep map above 65 -consider cvts eval -abx -check final cxs -should hold diuretics for today, creatinine is rising -monitor ins/outs -replace lytes prn -keep glucose 140-180s -gi/dvt ppx -please call eICu if condition changes total CCT 35 min
--- NOTE | 2023-09-11 10:13 | PT-IP ANOTE ---
In rounds, recommends hold therapies today d/t pt's medical presentation and O2 desaturation. Will hold PT and communicate with OT.
--- NOTE | 2023-09-11 10:33 | CM.DPNOTE ---
DCP note [employer]OF[employer] reviewed EMR. Per hospitalist in morning rounds, pt doing better today with steroids and abx. unclear etiology- pneumonia vs ILD flair(?). Per hospitalist, pt may need to be transferred for heart valve eval. PT held for the day due to pt's O2 levels dropping. Rec Home vs HH from eval a few days ago- CM team will f/u about HH referral after pt works with PT again and if they continue to rec. Per previous DCP assessment, no identified barriers to safe return home with spouse when medically stable. Plan: anticipate home with spouse, potential HH, vs Transfer to higher level of care. CM team will follow closely. AICHA Mcgraw
--- NOTE | 2023-09-11 11:12 | OT.IPNOTE ---
Per PT at medical rounds, pt not medically appropriate to be seen at this time, hold.
--- NOTE | 2023-09-11 14:04 | PM.PN.1 ---
Subjective Subjective Interval history: 68 year old male with recent complex hospitalization at [facility], admitted for acute respiratory failure with hypoxia and presumed CHF exacerbation. Overnight on 09/08 he became acutely worse, required BiPAP and moved to the ICU. He is improving today, now off of bipap again on 4L. He quickly desats with minimal movement. Exam Vital Signs (past 8 hours): - 09/11/23 07:00 09/11/23 07:03 09/11/23 08:00 Temperature Pulse Rate 62 63 Respiratory Rate 31 H 18 Blood Pressure Pulse Oximetry 100 99 Oxygen Delivery Method High Flow Nasal Cannula Humidification High Flow Nasal Cannula Oxygen Flow Rate 5 Fraction of Inspired Oxygen 40 09/11/23 08:00 09/11/23 08:00 09/11/23 08:00 Temperature Pulse Rate 63 63 Respiratory Rate 32 H 40 H Blood Pressure 133/70 Pulse Oximetry 92 92 94 Oxygen Delivery Method Nasal Cannula Oxygen Flow Rate 4 4 Fraction of Inspired Oxygen 09/11/23 08:10 09/11/23 08:11 09/11/23 08:11 Temperature Pulse Rate 85 64 Respiratory Rate 27 H Blood Pressure 133/70 133/70 Pulse Oximetry 94 Oxygen Delivery Method Oxygen Flow Rate Fraction of Inspired Oxygen 09/11/23 08:40 09/11/23 08:40 09/11/23 09:00 Temperature Pulse Rate 61 58 L Respiratory Rate 21 Blood Pressure Pulse Oximetry 92 100 Oxygen Delivery Method High Flow Nasal Cannula Oxygen Flow Rate 10 Fraction of Inspired Oxygen 09/11/23 10:21 09/11/23 12:00 09/11/23 13:05 Temperature 97.8 F Pulse Rate Respiratory Rate Blood Pressure Pulse Oximetry 100 Oxygen Delivery Method High Flow Nasal Cannula High Flow Nasal Cannula Oxygen Flow Rate 4 Fraction of Inspired Oxygen Fraction of Inspired Oxygen 40 SaO2/FiO2 Ratio 247 Oxygen Delivery Method High Flow Nasal Cannula Oxygen Flow Rate 4 Narrative Exam Narrative: Gen: WDWN male, no acute distress CV: regular rate with irregularly irregularly rhythm. Harsh MR murmur Pulm: diminished breath sounds b/l Lung bases Abd; S NT ND Ext: trace pitting edema b/l LE, slight improvement Objective Labs 09/11/23 06:30 09/11/23 06:30 Labs: Laboratory Results - last 24 hr 09/10/23 09/11/23 18:44 06:30 WBC 5.2 RBC 2.37 L Hgb 7.5 L Hct 22.4 L MCV 94.6 MCH 31.9 MCHC 33.7 RDW 20.9 H Plt Count 89 L Neut % (Auto) 83.6 H Lymph % (Auto) 12.8 L [place] % (Auto) 2.8 L Eos % (Auto) 0.1 L Baso % (Auto) 0.7 Neut # (Auto) 4400 Lymph # (Auto) 700 L [place] # (Auto) 100 Eos # (Auto) 0 Baso # (Auto) 0 RBC Morphology Not Reportable Anisocytosis 1+ H Rouleaux 2+ H Sodium 135 L Potassium 3.5 Chloride 100 Carbon Dioxide 31 BUN 61 H Creatinine 2.84 H Estimated GFR 23 L BUN/Creatinine Ratio 21.5 Glucose 137 H Calcium 8.6 Magnesium 1.9 Total Bilirubin 0.8 AST 31 ALT 16 Alkaline Phosphatase 58 Total Protein 6.3 Albumin 3.0 L Globulin 3.3 Albumin/Globulin Ratio 0.9 L Nasal Screen MRSA (PCR) Not detected [facility] Medical History (Updated 09/10/23 @ 12:28 by Rosendo Lemos MD) History of transesophageal echocardiography (BRYON) Endocarditis CHF (congestive heart failure) Anemia Social History household members: spouse and children Smoking Status: Never smoker alcohol intake: never Assessment & Plan Assessment & Plan narrative: 1. Acute on chronic combined systolic and diastolic heart failure - recent TTE and BRYON at OSH. EF 40-45%. - continue furosemide 40 mg IV TID, monitor Cr closely. Overnight worsening respiratory failure on BiPAP but again improved after starting antibiotics and steroids. - s/p 1U PRBC for anemia on 09/08. - repeat limited TTE to reassess mitral valve, EF ordered today without significant change compared to prior. 2. CKD, unknown baseline staging - continue furosemide, renally dose medications. Appears stable from previous values. Cr was as high as 4 at OSH. Cr has been stable between 2.6 and 2.7 this admission. 3. Acute respiratory failure with hypoxia - Continue diuresis. - clinically consisted with ILD as far as rapid desaturation with minimal activity. Started prednisone 60 mg daily on 09/09, along with zosyn for possible PNA. - albuterol nebs prn. - already on eliquis. - consider discussion with cardiovascular surgery, given it is clinically difficult to differentiate between pulmonary and cardiac etiologies for his severe hypoxia at this time. 4. BPH with urinary obstruction - continue almanza and flomax 5. presumed chronic atrial fibrillation - continue home amiodarone and metoprolol. - continue telemetry monitoring - started low dose (2.5 mg BID) apixaban with elevated cr. and is <60Kg. 6. subacute endocarditis - continue ceftriaxone IV q 24 hours. Follows with [place] [facility]. - patient reports BRYON at [facility]. - repeat blood cultures obtained but negative thus far. If recurrent consider transfer for ID evaluation. 7. myocardial injury / elevated troponin - suspect in setting of elevated demand from CHF. Troponins have downtrended. No further evaluation necessary inpatient. Was recommended for left and right heart cath as outpatient, after treatment of endocarditits. 8. Chronic presumed ILD - goal O2 88% on RA. Wean O2 as tolerated goal 88-96%. 9. Acute on Chronic anemia - monitor closely with starting of apixaban. Hg to 7.2 today, no evidence of active bleeding on exam. - given 1U PRBC yesterday, no evidence of active bleeding. - no hyperbilirubinemia or schistocytes reported to suggest mechanical destruction with valve. Code: Full, surrogate is patient's son DVT: start apixaban Dispo: inpatient, likely SNF on discharge, if no further improvement consider higher level of care transfer. Discussed with case management and bedside staff today, nursing home admissions director given possible need for transfer. Quality VTE Deep Vein Thrombosis/Pulmonary Embolism Present on Admission: No
--- NOTE | 2023-09-11 16:21 | DIET.CONS ---
Dietary Consultation Note Admission Date: 09/08/2023 03:25 Assessment: 68 y M admitted for acute respiratory failure. Nutrition screened for low MNA. Met with pt and family member at bedside. Reports between May and July this year started to notice weight loss and lower than normal appetite, which prompted visit to doctor/ER. Recent hospitalization at [facility] for bacterial endocarditis noted. At [facility], was consuming Ensure TID. Nutrition focused physical exam results: Muscle wasting: -Severe loss in temporalis -Severe loss in interosseous -Severe loss in clavicle region Subcutaneous fat loss: -Severe loss in buccal fat pad -Severe loss in orbital fat pad Ht: 167.64 cm Wt: 58 kg BMI: 20.6 UBW: 66-64 kg per pt report 6 months ago (-12% weight loss within 6 months, severe) Last BM: 09/11/23 (09/11/23 11:46) MNA: 9 Osmin Score: 20 Diet: 09/08/23 Breakfast Heart Healthy Diet Diet Modifications: Sodium Level: 2 gm Sodium Nutrition Percent Meal Consumed 50% 09/11/23 13:06 Percent Meal Consumed 0% 09/10/23 17:54 Percent Meal Consumed 75% 09/10/23 13:22 Percent Meal Consumed 75% 09/10/23 10:45 Percent Meal Consumed 75% 09/09/23 18:00 Labs: RBC 2.37 X10^6/uL (4.5-5.9) L 09/11/23 06:30 Hgb 7.5 g/dL (13.5-17.5) L 09/11/23 06:30 Hct 22.4 % (41-53) L 09/11/23 06:30 Creatinine 2.84 mg/dL (0.66-1.25) H 09/11/23 06:30 Lactate 1.3 mmol/L (0.7-2.1) 09/08/23 02:40 NT-Pro-B Natriuret Pep 93581 pg/mL (<125) H 09/10/23 09:10 Nutrition Diagnosis: Severe Acute Protein Calorie Malnutrition r/t inadequate oral intake and increased energy-protein needs in setting of endocarditis as evidenced by 12% weight loss within 6 months, severe, severe muscle wasting (temporalis, deltoid, trapezius, pectoralis major, interosseous) and severe subcutaneous fat loss (orbital and buccal fat pads). The patient is at much higher risk for medical and surgical complications because of their malnutrition. This increases the difficulty and complexity of medical and surgical interventions and increases the chances of poor outcomes such as morbidity and mortality. Interventions: 1. Ordered ONS TID 2. Provided MNT for malnutrition EER: -2623-7315 kcals/day (25-30 kcals/kg per BMI) -85-90 g protein/day (1.5 g/kg per malnutrition/CHF/CKD) Monitoring/Evaluations: PO intakes, ONS tolerance, weight Electronically Signed by: Katherine Munguia 09/11/23 16:21 Clinical Dietitian [address] [id number]
--- NOTE | 2023-09-11 19:39 | PM.ICURNDS ---
- :: This patient was seen via real time interactive two-way audiovisual telecommunication. Note: no acute events during the day, NAD, on 3 L Nc. Cont current mgt.
[2023-09-12] VITALS (24 sets, daily range): BP systolic 108–122; BP diastolic 55–64; PULSE 53–63; RESP 21–48; TEMP 36.1–36.7; O2SAT 86–99
[2023-09-12] MEDS: PIPERACILLIN/TAZO 3.375 GM in SODIUM CHLORIDE 0.9% 100 ML IV ×2 (02:05→10:00)
[2023-09-12] MEDS: FUROSEMIDE 40 MG/4 ML VIAL IV (05:57)
[2023-09-12] MEDS: PANTOPRAZOLE DR 20 MG TABLET PO (05:57)
[2023-09-12 06:37] LABS: Add Manual Diff / Slide Review NO; Alanine Aminotransferase 16 IU/L (<50); Albumin 2.9 g/dL (3.5-5.0); Albumin Globulin Ratio 0.9 (1.0-2.8); Alkaline Phosphatase 60 U/L (38-126); Aspartate Aminotransferase 27 IU/L (17-59); BUN Creatinine Ratio 26.3 (6-22); Basophils Absolute Auto 0 /uL (0-100); Basophils Percent Auto 0.4 % (0-2); Bilirubin Total 0.7 mg/dL (0.2-1.3); Blood Urea Nitrogen 73 mg/dL (9-20); Calcium 8.5 mg/dL (8.4-10.2); Carbon Dioxide 32 mmol/L (22-32); Chloride 101 mmol/L (98-107); Eosinophils Absolute Auto 0 /uL (0-450); Eosinophils Percent Auto 0.1 % (2-4); Estimated Glomerular Filt Rate 24 mL/min (>60); Globulin 3.4 g/dL (1.7-4.1); Glucose 105 mg/dL (80-110); HEMOLYSIS < 15 (0-50); Hematocrit 22.2 % (41-53); Hemoglobin 7.6 g/dL (13.5-17.5); Lymphocytes Absolute Auto 1200 /uL (1100-4500); Lymphocytes Percent Auto 11.4 % (25-40); Magnesium 1.9 mg/dL (1.6-2.3); Mean Corpuscular HGB Conc 34.3 % (30-36); Mean Corpuscular Hemoglobin 31.9 PG (26-34); Mean Corpuscular Volume 92.9 fL (80-100); Monocytes Absolute Auto 600 /uL (0-900); Monocytes Percent Auto 5.2 % (3-14); Neutrophils Absolute Auto 8900 /uL (1500-7000); Neutrophils Percent Auto 82.9 % (50-75); Platelet Count 90 X10^3/uL (150-400); Potassium 3.3 mmol/L (3.4-5.1); Red Blood Cell Count 2.39 X10^6/uL (4.5-5.9); Red Cell Distribution Width 20.1 % (11.6-14.8); Sodium 137 mmol/L (137-145); Total Protein 6.3 g/dL (6.3-8.2); White Blood Cell Count 10.7 X10^3/uL (4.5-11.0)
[2023-09-12 07:08] LABS: Anisocytosis 2+
[2023-09-12] MEDS: TAMSULOSIN 0.4 MG CAPSULE PO (08:10)
[2023-09-12] MEDS: CALCIUM ACETATE 667 MG CAPSULE PO (08:10)
[2023-09-12] MEDS: APIXABAN 5 MG TABLET 2.5 MG PO (08:10)
[2023-09-12] MEDS: SPIRONOLACTONE 25 MG TABLET PO (08:10)
[2023-09-12] MEDS: predniSONE 20 MG TABLET 60 MG PO (08:10)
[2023-09-12] MEDS: AMIODARONE 200 MG TABLET 400 MG PO (08:10)
[2023-09-12] MEDS: SODIUM CHLORIDE 0.9% FLUSH 10 ML IV (08:13)
[2023-09-12] MEDS: METOPROLOL ER 25 MG TABLET PO (08:21)
--- NOTE | 2023-09-12 08:52 | P.PN_ITS ---
Subjective Subjective Interval history: 68 year old male with recent complex hospitalization at [facility], admitted for acute respiratory failure with hypoxia and presumed CHF exacerbation. Overnight on 09/08 he became acutely worse, required BiPAP and moved to the ICU. He is improving today, now off of bipap again on 4L. He quickly desats with minimal movement. Exam Vital Signs (past 8 hours): - 09/12/23 01:00 09/12/23 02:00 09/12/23 03:00 Temperature Pulse Rate 56 L 59 L 57 L Respiratory Rate 21 38 H 33 H Blood Pressure Pulse Oximetry 99 98 97 Oxygen Delivery Method Oxygen Flow Rate 09/12/23 04:00 09/12/23 04:00 09/12/23 04:43 Temperature Pulse Rate 56 L Respiratory Rate 31 H Blood Pressure 122/64 Pulse Oximetry 98 97 Oxygen Delivery Method High Flow Nasal Cannula Oxygen Flow Rate 3 09/12/23 04:43 09/12/23 04:45 09/12/23 05:25 Temperature 98.1 F Pulse Rate 61 Respiratory Rate 25 H Blood Pressure Pulse Oximetry 86 L 92 Oxygen Delivery Method High Flow Nasal Cannula Nasal Cannula Oxygen Flow Rate 3 3 09/12/23 07:00 09/12/23 08:00 09/12/23 08:10 Temperature 96.9 F L Pulse Rate 55 L 59 L 54 L Respiratory Rate 33 H 42 H 35 H Blood Pressure Pulse Oximetry 95 93 94 Oxygen Delivery Method Oxygen Flow Rate 09/12/23 08:10 09/12/23 08:21 Temperature Pulse Rate 58 L Respiratory Rate Blood Pressure 113/60 113/59 L Pulse Oximetry Oxygen Delivery Method Oxygen Flow Rate Fraction of Inspired Oxygen 40 SaO2/FiO2 Ratio 247 Oxygen Delivery Method Nasal Cannula Oxygen Flow Rate 3 Narrative Exam Narrative: Gen: WDWN male, no acute distress CV: regular rate with irregularly irregularly rhythm. Harsh MR murmur Pulm: diminished breath sounds b/l Lung bases Abd; S NT ND Ext: trace pitting edema b/l LE, slight improvement Objective Labs 09/12/23 06:10 09/12/23 06:10 Labs: Laboratory Results - last 24 hr 09/12/23 06:10 WBC 10.7 D RBC 2.39 L Hgb 7.6 L Hct 22.2 L MCV 92.9 MCH 31.9 MCHC 34.3 RDW 20.1 H Plt Count 90 L Neut % (Auto) 82.9 H Lymph % (Auto) 11.4 L [place] % (Auto) 5.2 Eos % (Auto) 0.1 L Baso % (Auto) 0.4 Neut # (Auto) 8900 H Lymph # (Auto) 1200 [place] # (Auto) 600 Eos # (Auto) 0 Baso # (Auto) 0 RBC Morphology Not Reportable Anisocytosis 2+ H Sodium 137 Potassium 3.3 L Chloride 101 Carbon Dioxide 32 BUN 73 H Creatinine 2.78 H Estimated GFR 24 L BUN/Creatinine Ratio 26.3 H Glucose 105 Calcium 8.5 Magnesium 1.9 Total Bilirubin 0.7 AST 27 ALT 16 Alkaline Phosphatase 60 Total Protein 6.3 Albumin 2.9 L Globulin 3.4 Albumin/Globulin Ratio 0.9 L [facility] Medical History (Updated 09/10/23 @ 12:28 by Rosendo Lemos MD) History of transesophageal echocardiography (BRYON) Endocarditis CHF (congestive heart failure) Anemia Social History household members: spouse and children Smoking Status: Never smoker alcohol intake: never Assessment & Plan Assessment & Plan narrative: 1. Acute on chronic combined systolic and diastolic heart failure - recent TTE and BRYON at OSH. EF 40-45%. - continue furosemide 40 mg IV TID, monitor Cr closely. Overnight worsening respiratory failure on BiPAP but again improved after starting antibiotics and steroids. - s/p 1U PRBC for anemia on 09/08. - repeat limited TTE to reassess mitral valve, EF ordered and without significant change compared to prior. 2. CKD, unknown baseline staging - continue furosemide, renally dose medications. Appears stable from previous values. Cr was as high as 4 at OSH. Cr has been stable between 2.6 and 2.7 this admission. 3. Acute respiratory failure with hypoxia - Continue diuresis. - clinically consisted with ILD as far as rapid desaturation with minimal activity. Started prednisone 60 mg daily on 09/09, along with zosyn for possible PNA. - albuterol nebs prn. - already on eliquis. - consider discussion with cardiovascular surgery, given it is clinically difficult to differentiate between pulmonary and cardiac etiologies for his severe hypoxia at this time. 4. BPH with urinary obstruction - continue almanza and flomax 5. presumed chronic atrial fibrillation - continue home amiodarone and metoprolol. - continue telemetry monitoring - started low dose (2.5 mg BID) apixaban with elevated cr. and is <60Kg. 6. subacute endocarditis - continue ceftriaxone IV q 24 hours. Follows with [place] [facility]. - patient reports BRYON at [facility]. - repeat blood cultures obtained but negative thus far. If recurrent consider transfer for ID evaluation. 7. myocardial injury / elevated troponin - suspect in setting of elevated demand from CHF. Troponins have downtrended. No further evaluation necessary inpatient. Was recommended for left and right heart cath as outpatient, after treatment of endocarditits. 8. Chronic presumed ILD - goal O2 88% on RA. Wean O2 as tolerated goal 88-96%. 9. Acute on Chronic anemia - monitor closely with starting of apixaban. Hg to 7.2 today, no evidence of active bleeding on exam. - given 1U PRBC yesterday, no evidence of active bleeding. - no hyperbilirubinemia or schistocytes reported to suggest mechanical destruction with valve. 10. Severe Acute Protein Calorie Malnutrition r/t inadequate oral intake and increased energy-protein needs in setting of endocarditis as evidenced by 12% weight loss within 6 months, severe, severe muscle wasting (temporalis, deltoid, trapezius, pectoralis major, interosseous) and severe subcutaneous fat loss (orbital and buccal fat pads). Code: Full, surrogate is patient's son DVT: start apixaban Dispo: inpatient, likely SNF on discharge, if no further improvement consider higher level of care transfer. Discussed with case management and bedside staff today, clinical nursing instructor given possible need for transfer. Quality VTE Deep Vein Thrombosis/Pulmonary Embolism Present on Admission: No
--- NOTE | 2023-09-12 09:52 | PM.PN.EICU ---
Subjective Subjective IF CAMERA ACTIVATED, patient seen via real-time interactive audiovisual communication: Camera activated Consent obtained for tele-seed specialist care: Yes Patient Location: ICU Provider location (State): [place] Other participants/roles: bedside nursing team Current Medications Current Medications Medications: Home Medications acetaminophen 325 mg tablet 325 mg PO PRN PRN pain 09/08/23 [History Confirmed 09/08/23] amiodarone 400 mg tablet 400 mg PO BID 09/08/23 [History Confirmed 09/08/23] calcium acetate(phosphat bind) 667 mg capsule 667 mg PO 3XD 09/08/23 [History Confirmed 09/08/23] calcium carbonate 200 mg calcium (500 mg) chewable tablet (Antacid (calcium carbonate)) 500 mg PO PRN PRN Acid Reflux 09/08/23 [History Confirmed 09/08/23] ceftriaxone 2 gram intravenous piggyback 2 g IV DAILY 09/08/23 [History Confirmed 09/08/23] furosemide 20 mg tablet 20 mg PO DAILY 09/08/23 [History Confirmed 09/08/23] metoprolol succinate 25 mg tablet,extended release 24 hr 25 mg PO DAILY 09/08/23 [History Confirmed 09/08/23] ondansetron 4 mg disintegrating tablet 4 mg PO Q6H PRN Nausea And Vomiting 09/08/23 [History Confirmed 09/08/23] tamsulosin 0.4 mg capsule 0.4 mg PO DAILY 09/08/23 [History Confirmed 09/08/23] vitamin B comp no.3-folic acid 1 mg-vit C 60 mg-biotin 300 mcg tablet ([facility]) 1 tab PO QPM 09/08/23 [History Confirmed 09/08/23] Visit Medications (administered) Generic Name Dose Route Start Last Admin Trade Name Freq PRN Reason Stop Dose Admin Amiodarone HCl 400 mg 09/08/23 09:00 09/12/23 08:10 Amiodarone 200 Mg Tablet PO 400 mg BID SHERIF Administration Apixaban 2.5 mg 09/08/23 13:15 09/12/23 08:10 Apixaban 5 Mg Tablet PO 2.5 mg BID SHERIF Administration Calcium Acetate 667 mg 09/08/23 09:00 09/12/23 08:10 Calcium Acetate 667 Mg Capsule PO 667 mg TID SHERIF Administration Furosemide 40 mg 09/08/23 05:15 09/12/23 05:57 Furosemide 40 Mg/4 Ml Vial IV 40 mg Q8H SHERIF Administration Heparin Sodium (Porcine) 50 unit 09/09/23 21:00 09/12/23 08:09 Heparin Flush (Cl/Picc/Mid-Line) 50 Unit/5 Ml Syringe IV 50 unit BID SHERIF Administration Piperacillin Sod/Tazobactam 100 mls @ 25 mls/hr 09/10/23 18:15 09/12/23 08:12 Sod 3.375 gm/ Sodium Chloride IV Infused Q8H SHERIF Infusion Lorazepam 0.5 mg 09/10/23 01:58 09/10/23 05:26 Lorazepam 2 Mg/Ml Inj IV 0.5 mg Q2HR PRN Administration Anxiety Metoprolol Succinate 25 mg 09/08/23 09:00 09/12/23 08:21 Metoprolol Er 25 Mg Tablet PO 25 mg DAILY SHERIF Administration Pantoprazole Sodium 20 mg 09/08/23 06:00 09/12/23 05:[address] 20 Mg Tablet PO 20 mg 0600 SHERIF Administration Prednisone 60 mg 09/11/23 09:00 09/12/23 08:10 Prednisone 20 Mg Tablet PO 60 mg DAILY SHERIF Administration Sennosides 17.2 mg 09/08/23 21:00 09/11/23 21:12 Sennosides 8.6 Mg Tablet PO Not Given BEDTIME SHERIF Sodium Chloride 10 ml 09/10/23 21:00 09/12/23 08:13 Sodium Chloride 0.9% Flush IV 10 ml BID SHERIF Administration Spironolactone 25 mg 09/08/23 09:00 09/12/23 08:10 Spironolactone 25 Mg Tablet PO 25 mg DAILY SHERIF Administration Tamsulosin HCl 0.4 mg 09/08/23 09:00 09/12/23 08:10 Tamsulosin 0.4 Mg Capsule PO 0.4 mg DAILY SHERIF Administration Objective Ventilator Parameters: Ventilator Settings FiO2 30 Labs 09/12/23 06:10 09/12/23 06:10 Labs: Laboratory Results - last 24 hr 09/12/23 06:10 WBC 10.7 D RBC 2.39 L Hgb 7.6 L Hct 22.2 L MCV 92.9 MCH 31.9 MCHC 34.3 RDW 20.1 H Plt Count 90 L Neut % (Auto) 82.9 H Lymph % (Auto) 11.4 L [place] % (Auto) 5.2 Eos % (Auto) 0.1 L Baso % (Auto) 0.4 Neut # (Auto) 8900 H Lymph # (Auto) 1200 [place] # (Auto) 600 Eos # (Auto) 0 Baso # (Auto) 0 RBC Morphology Not Reportable Anisocytosis 2+ H Sodium 137 Potassium 3.3 L Chloride 101 Carbon Dioxide 32 BUN 73 H Creatinine 2.78 H Estimated GFR 24 L BUN/Creatinine Ratio 26.3 H Glucose 105 Calcium 8.5 Magnesium 1.9 Total Bilirubin 0.7 AST 27 ALT 16 Alkaline Phosphatase 60 Total Protein 6.3 Albumin 2.9 L Globulin 3.4 Albumin/Globulin Ratio 0.9 L Exam Vital Signs (past 8 hours): - 09/12/23 02:00 09/12/23 03:00 09/12/23 04:00 Temperature Pulse Rate 59 L 57 L Respiratory Rate 38 H 33 H Blood Pressure Pulse Oximetry 98 97 98 Oxygen Delivery Method High Flow Nasal Cannula Oxygen Flow Rate 3 09/12/23 04:00 09/12/23 04:43 09/12/23 04:43 Temperature 98.1 F Pulse Rate 56 L 61 Respiratory Rate 31 H 25 H Blood Pressure 122/64 Pulse Oximetry 97 86 L Oxygen Delivery Method Oxygen Flow Rate 3 09/12/23 04:45 09/12/23 05:25 09/12/23 07:00 Temperature 96.9 F L Pulse Rate 55 L Respiratory Rate 33 H Blood Pressure Pulse Oximetry 92 95 Oxygen Delivery Method High Flow Nasal Cannula Nasal Cannula Oxygen Flow Rate 3 09/12/23 08:00 09/12/23 08:00 09/12/23 08:10 Temperature Pulse Rate 59 L 54 L Respiratory Rate 42 H 35 H Blood Pressure Pulse Oximetry 93 94 Oxygen Delivery Method High Flow Nasal Cannula Oxygen Flow Rate 09/12/23 08:10 09/12/23 08:21 09/12/23 09:02 Temperature Pulse Rate 58 L 55 L Respiratory Rate Blood Pressure 113/60 113/59 L Pulse Oximetry Oxygen Delivery Method Oxygen Flow Rate Fraction of Inspired Oxygen 40 SaO2/FiO2 Ratio 247 Oxygen Delivery Method High Flow Nasal Cannula Oxygen Flow Rate [facility] Th[facility]osis/Pulmonary Embolism Present on Admission: No Assessment & Plan Assessment and plan (1) Endocarditis: Status: Acute (2) CHF (congestive heart failure): Status: Acute (3) BRYANNA (acute kidney injury): Status: Acute (4) Acute hypoxemic respiratory failure: Status: Acute (5) Thrombocytopenia: Status: Acute Assessment & Plan narrative: Suggest -neuroechecks/seizure precautions -avoid benzos/opiods -keep sat 88-92% -on 3lNC , continue to wean -keep map above 65 -CT surgeyr eval -abx -check final cxs -consider holding diuretics -monitor ins/outs -replace lytes prn -keep glucose 140-180s -gi/dvt ppx -please call eICu if condition changes total CCT 35 min
[2023-09-12] MEDS: POTASSIUM CHLORIDE 20 MEQ TAB 40 MEQ PO (10:01)
--- NOTE | 2023-09-12 11:57 | DI.RAD.S_ITS ---
PROCEDURE: XR CHEST 1V INDICATIONS: hypoxia TECHNIQUE: One view of the chest was acquired. COMPARISON: [facility], CR, XR CHEST 1V, 09/10/2023, 0:55. FINDINGS: Surgical changes and devices: Right sided tunneled central venous catheter projects over the mid SVC. Lungs and pleura: Diffuse lung disease has decreased. Probable trace bilateral pleural effusions, left greater than right. No pleural effusions or pneumothorax. Mediastinum: Mediastinal contours appear normal. Heart size is normal. Bones and chest wall: No suspicious bony lesions. Overlying soft tissues appear unremarkable. IMPRESSION: 1. Diffuse lung disease has decreased. Probable trace bilateral pleural effusions, left greater than right. 2. Right-sided tunneled central venous catheter projects over the mid SVC. Dictated by: Isabel Simmons M.D. on 09/12/2023 at 12:43 Approved by: Isabel Simmons M.D. on 09/12/2023 at 12:53
--- NOTE | 2023-09-12 13:54 | PT.IPTN ---
Current Diagnoses Anemia, unspecified (09/08/23) Thrombocytopenia, unspecified (09/08/23) Endocarditis, valve unspecified (09/08/23) Heart failure, unspecified (09/08/23) Acute respiratory failure with hypoxia (09/08/23) Acute kidney failure, unspecified (09/08/23) Physical Therapy Treatment Note M2 PT-IP Current Condition Start: 09/09/23 17:29 Freq: NEEDED Status: Active Protocol: Document 09/09/23 15:15 AB (Rec: 09/09/23 17:45 AB [id number]) Physical Therapy Current Condition Current Condition Evaluation Date 09/09/23 Treatment Diagnosis CHF; difficulty in walking Onset Date 09/08/23 M3 PT-IP Subjective Start: 09/09/23 17:29 Freq: NEEDED Status: Active Protocol: Document 09/12/23 14:53 TS (Rec: 09/12/23 15:09 TS [id number]) Subjective Physical Therapy Visit Type Type Treatment Note Visit Start Time 13:54 Visit Stop Time 14:30 Notes Spo2 93% on 2L at rest, desats to 70% on 2L and 78% on 4L with mobility. Number of MATE FOURTH Visits 1 Physical Therapy Visit Comments Patient Comments Pt is agreeable to PT. M4 PT-IP Mobility and Gait Start: 09/09/23 17:29 Freq: NEEDED Status: Active Protocol: Document 09/12/23 14:53 TS (Rec: 09/12/23 15:09 TS [id number]) PT-Transfer Assessment Sit to and From Stand Sit to and from Stand Standby Assistance Equipment Transfer Assistive Device Gait Belt,Front Wheeled Walker Orthotic/Prosthetic Devices or Brace: No Comments Mobility Comments STS from chair SBA with cues for pushign from arms of chair and use of FWW. Pt ambulated to chair for weighing ~10'. Pt performed STS from chair x3 SBA with FWW, Spo2 70% on 2L, Spo2 increased to 85% on 2L with cues for PLB, increased o2 to 4L's. Pt ambulated ~10' on 4L, Spo2 78% on 4L's. Pt sat in chair, ~1min to recover to low 90's on 4L's. pt was left in chair on 2.5L's resting at 88%. Gait Assessment Gait Gait Assistance Required: Standby Assistance Distance (Feet) 20 Able to Maintain Weight Bearing Status Yes During Gait Assistive Devices Assistive Device Gait Belt,Front Wheeled Walker Orthotic/Prosthetic Devices or Brace: No Gait Deviations General Gait Pattern Decreased Stride Length, Decreased Feet Clearance,Step- to Gait Factors Limiting Gait Function Factors Limiting Gait Function Decreased Activity Tolerance, Decreased Strength,Limited Range of Motion,Pain,Poor Balance,Poor Safety Awareness, Respiratory Distress Comments Gait Comments See mobility comments PT-Balance Assessment Sitting Balance and Reactions Static Sitting Balance Ability Normal Dynamic Sitting Balance Ability Good Standing Balance and Reactions Static Standing Balance Ability Fair Dynamic Standing Balance Ability Fair Device Used FWW M5 PT-IP Objective Assessments Start: 09/09/23 17:29 Freq: NEEDED Status: Active Protocol: Document 09/09/23 15:15 AB (Rec: 09/09/23 17:45 AB [id number]) Orientation Orientation/Cognition Level of Alertness Alert Orientation Name,Place,Situation Language Function Ability Hard of Hearing Safety Awareness Decreased Safety Awareness Memory Description No Deficits Noted Gross Range of Motion Lower Extremity ROM Assessment Within Functional Limits Strength Comments Strength Comments RLE: 4-/5 LLE: 4/5 Coordination Assessment Gross Coordination Gross Coordination WNL Muscle Tone Muscle Tone WNL Yes M6 PT-IP Treatment Start: 09/09/23 17:29 Freq: NEEDED Status: Active Protocol: Document 09/12/23 14:53 TS (Rec: 09/12/23 15:09 TS [id number]) Physical Therapy Treatment Education Education Provided Safety M7 PT-IP Assessment and Plan Start: 09/09/23 17:29 Freq: NEEDED Status: Active Protocol: Document 09/12/23 14:53 TS (Rec: 09/12/23 15:09 TS [id number]) PT Summary Assessment and Plan Potential Rehabilitation Potential Fair Summary Impairments Pain,ROM,Strength,Balance, Coordination,Sensation,Tone, Cognition,Bed Mobility, Transfers,Gait,Activity Tolerance Progress Towards Goals Slow Progress due to Medical Issues,Slow Progress due to Activity Tolerance Assessment Summary Martinez is making slow progress with his mobility. He continues to be limited by poor activity tolerance and ongoing respiratory issues. His o2 desats to 70% with mobility on 2L's and desats to 78% on 4L's with mobility with ~30secs of gait. He requires frequent rest breaks with mobility. PT will continue to recommend home with assist and HHPT. Pt may transfer to [place] for heart valve replacement. Goals Bed Mobility Goal Independent Transfer Goal Independent,Front Wheeled Walker Gait Goal Independent,Front Wheel Walker Gait Distance 100 Other Goals improve transfers and ambulation using LRAD ~ 200 ft mod I up/down 2 steps SBA Days to Meet Goals 10 Frequency of Treatment Frequency Of Treatment Once a Day Treatment Plan Physical Therapy Treatment Plan Bed Mobility Training,Transfer Training,Gait Training, Therapeutic Exercise,Balance Retraining,Discharge Planning, Hot or Cold Pack,Neuromuscular Re-ed,Coordination Retraining Precautions Other Precautions O2 sat Recommendations To Nursing Amount of Assist Needed Standby Assistance Discharge Recommendations PT Discharge Recommendations Home with Assistance,Home Health Transportation Needs at Discharge Private Vehicle
--- NOTE | 2023-09-12 14:09 | CM.DPNOTE ---
Addendum entered by AICHA Mcgraw 09/12/23 16:09: Per set up and charger, pt transferring to [facility]. Transport for 1615 via BLS. [facility] Original Note: DCP Note INSTANT PRINT OPERATOR reviewed EMR. Per hospitalist in morning rounds, pt remains medically complex. Off BiPap, on 3-4ltrs now. on Abx and steroids. Will likely remain here for a few days. Per provider PN, pt quickly destats with minimal movement. PT/OT evals remain pending. Per PN, there remains a possible need for transfer if no further improvement. Plan: transfer vs home with spouse. PT/OT evals pending. Follow closely for SNF/HH need if determined necessary. AICHA Mcgraw
--- NOTE | 2023-09-12 16:09 | PM.DS.1 ---
History of Present Illness History of Present Illness Chief complaint: on cpap, sob Narrative: This is a 68 year old male, with recent PMH of afib, on ceftriaxone for possible subactue endocarditis, CHFrEF (40-45%) with MR, BPH, CKD (unknown baseline cr), anemia who presented with worsening shortness of breath. He has been at home for about a week. He has slowly been having worsening shortness of breath. With EMS his O2 saturations was in the 50% range. Overnight he was diuresed, improved oxygenation this morning. He feels improved, denies current dyspnea. Awaiting a hospital bed this morning in the ER. He does not recall how long his legs have been swollen and has poor insight into his current health situation other than vagarities. Discharge Providers Provider Date of admission: 09/08/23 03:25 Discharge Date: 09/12/23 Primary care physician: Elva Sanchez DO Consults: 09/09/23 10:39 Consult to Occupational Therapy Evaluate & Treat Comment: Physician Instructions: Evaluate and treat Consult to Physical Therapy Evaluate & Treat Comment: Physician Instructions: Evaluate and Treat 09/10/23 09:34 Consult to Tele-residential finish carpenter Routine Comment: Consulting Provider: Trevor [employer]intensiv[employer] Reason for consultation: [employer] services Discharge provider: Michael Eastman DO Summary Hospital Course Discharge Diagnosis: 1. Acute on chronic combined systolic and diastolic heart failure, with severe MR - recent TTE and BRYON at OSH. EF 40-45%. - continue furosemide 40 mg IV TID, monitor Cr closely. Overnight worsening respiratory failure on BiPAP but again improved after starting antibiotics and steroids. - s/p 1U PRBC for anemia on 09/08. - repeat limited TTE to reassess mitral valve: LV severely dilated when indexed to BSA The left ventricle is moderate-severely dilated. The ejection fraction is estimated to be 55-60%. Left ventricular wall motion is normal. The mitral leaflets appear thickened, hooded, and/or redundant, consistent with myxomatous degeneration There is prolapse of the posterior mitral valve leaflet(s). There is severe mitral regurgitation. There is an eccentric jet of mitral regurgitation that is directed anteroseptally. 2. CKD, unknown baseline staging - continue furosemide, renally dose medications. Appears stable from previous values. Cr was as high as 4 at OSH. Cr has been stable between 2.6 and 2.7 this admission. 3. Acute respiratory failure with hypoxia - Continue diuresis. - clinically consisted with ILD as far as rapid desaturation with minimal activity. Started prednisone 60 mg daily on 09/09, along with zosyn for possible PNA. - albuterol nebs prn. - already on eliquis. - now on 3L NC 4. BPH with urinary obstruction - continue almanza and flomax 5. presumed chronic atrial fibrillation - continue home amiodarone and metoprolol. - continue telemetry monitoring - started low dose (2.5 mg BID) apixaban with elevated cr. and is <60Kg. 6. subacute endocarditis - continue ceftriaxone IV q 24 hours. Follows with [place] [facility]. - patient reports BRYON at [facility]. Jethro. - repeat blood cultures obtained but negative at 4 days 7. myocardial injury / elevated troponin - suspect in setting of elevated demand from CHF. Troponins have downtrended. No further evaluation necessary inpatient. Was recommended for left and right heart cath as outpatient, after treatment of endocarditits. 8. Chronic presumed ILD - goal O2 88% on RA. Wean O2 as tolerated goal 88-96%. 9. Acute on Chronic anemia - monitor closely with starting of apixaban. Hg to 7.2 today, no evidence of active bleeding on exam. - given 1U PRBC yesterday, no evidence of active bleeding. - no hyperbilirubinemia or schistocytes reported to suggest mechanical destruction with valve. Hospital Course: Admitted for SOB and found to be volume overloaded with acute pulm edema. Required Bipap initially but this was weaned off with diuresis, prednisone and on zosyn in case of PNA. Then 2 days into hospitalization developed flash pulm edema and placed back on bipap. CXR showed florrid pulm edema. Again weaned off with IV lasix to 3L NC. Echo showed severe MR. Spoke with Dr. Quintana associate account manager at [facility] who recommended transfer for cardiology consult and ID clearance for potential MR intervention. Transferred to [facility] under accepting hospitalist Dr. Jeffries. Exam Vital Signs (past 8 hours): - 09/12/23 08:10 09/12/23 08:10 09/12/23 08:21 Pulse Rate 54 L 58 L Respiratory Rate 35 H Blood Pressure 113/60 113/59 L Pulse Oximetry 94 Oxygen Delivery Method Oxygen Flow Rate 09/12/23 09:00 09/12/23 09:02 09/12/23 09:52 Pulse Rate 57 L 55 L Respiratory Rate 35 H Blood Pressure Pulse Oximetry 95 97 Oxygen Delivery Method High Flow Nasal Cannula Oxygen Flow Rate 3 09/12/23 10:00 09/12/23 11:00 09/12/23 12:00 Pulse Rate 54 L 53 L 53 L Respiratory Rate 43 H 21 22 Blood Pressure Pulse Oximetry 96 97 97 Oxygen Delivery Method Oxygen Flow Rate 09/12/23 12:00 09/12/23 13:00 09/12/23 13:00 Pulse Rate 60 Respiratory Rate 33 H Blood Pressure Pulse Oximetry 93 94 Oxygen Delivery Method High Flow Nasal Cannula High Flow Nasal Cannula Oxygen Flow Rate 3 09/12/23 13:08 09/12/23 13:08 09/12/23 14:00 Pulse Rate 57 L 61 Respiratory Rate 40 H 38 H Blood Pressure 114/55 L Pulse Oximetry 87 L 93 Oxygen Delivery Method Oxygen Flow Rate 09/12/23 14:23 09/12/23 14:23 09/12/23 15:00 Pulse Rate 59 L 55 L Respiratory Rate 27 H Blood Pressure 108/58 L Pulse Oximetry 93 99 Oxygen Delivery Method Oxygen Flow Rate Fraction of Inspired Oxygen 40 SaO2/FiO2 Ratio 247 Oxygen Delivery Method High Flow Nasal Cannula Oxygen Flow Rate 3 Narrative Exam Narrative: Gen: WDWN male, no acute distress CV: regular rate with irregularly irregularly rhythm. Harsh MR murmur Pulm: diminished breath sounds b/l Lung bases Abd; S NT ND Ext: 2+ pitting edema b/l LE, slight improvement Objective Labs 09/12/23 06:10 09/12/23 06:10 Labs: Laboratory Results - last 24 hr 09/12/23 06:10 WBC 10.7 D RBC 2.39 L Hgb 7.6 L Hct 22.2 L MCV 92.9 MCH 31.9 MCHC 34.3 RDW 20.1 H Plt Count 90 L Neut % (Auto) 82.9 H Lymph % (Auto) 11.4 L [place] % (Auto) 5.2 Eos % (Auto) 0.1 L Baso % (Auto) 0.4 Neut # (Auto) 8900 H Lymph # (Auto) 1200 [place] # (Auto) 600 Eos # (Auto) 0 Baso # (Auto) 0 RBC Morphology Not Reportable Anisocytosis 2+ H Sodium 137 Potassium 3.3 L Chloride 101 Carbon Dioxide 32 BUN 73 H Creatinine 2.78 H Estimated GFR 24 L BUN/Creatinine Ratio 26.3 H Glucose 105 Calcium 8.5 Magnesium 1.9 Total Bilirubin 0.7 AST 27 ALT 16 Alkaline Phosphatase 60 Total Protein 6.3 Albumin 2.9 L Globulin 3.4 Albumin/Globulin Ratio 0.9 L PFSH Medical History (Updated 09/10/23 @ 12:28 by Rosendo Lemos MD) History of transesophageal echocardiography (BRYON) Endocarditis CHF (congestive heart failure) Anemia Social History household members: spouse and children Smoking Status: Never smoker alcohol intake: never Discharge Plan Discharge Plan Patient Disposition: er Acute Care Hospital Discharge Data Primary Care Provider: Elva Sanchez VTE Deep Vein Thrombosis/Pulmonary Embolism Present on Admission: No
--- NOTE | 2023-09-12 16:39 | PC.NURSE ---
Pt on 3L NC, tolerating well. Dyspnea with exertion and activity, desats to 80's but quick recovery. Pt and family agreeable to plan to transfer to [facility]. VSS. Transport arrived 1620. Report given to transport team. [facility]. Pt left with transport team at approximately 1640. Report given to Danish BEDOYA at [place]. Pt going to room [address].
== END 2023-09-12 16:40 | disposition short-term general hospital (02) | DRG 291 ==
LOC: ED 03:25 → AC 07:37 → ICU 09-11 08:00
PROVIDERS: Internal Medicine; Admitting Provider Internal Medicine; Emergency Provider Emergency Medicine; PCP Family Medicine; Referring Provider Emergency Medicine; Visit Provider Internal Medicine
DX: I50.43 Acute on chronic combined systolic (congestive) and diastolic (congestive) heart failure (principal); I33.9 Acute and subacute endocarditis, unspecified; J96.01 Acute respiratory failure with hypoxia; I48.20 Chronic atrial fibrillation, unspecified; N13.8 Other obstructive and reflux uropathy; I5A Non-ischemic myocardial injury (non-traumatic); J84.9 Interstitial pulmonary disease, unspecified; M31.30 Wegener's granulomatosis without renal involvement; N30.00 Acute cystitis without hematuria; I34.0 Nonrheumatic mitral (valve) insufficiency; N18.9 Chronic kidney disease, unspecified; N40.1 Benign prostatic hyperplasia with lower urinary tract symptoms; D63.1 Anemia in chronic kidney disease; D69.6 Thrombocytopenia, unspecified; L93.2 Other local lupus erythematosus; N05.9 Unspecified nephritic syndrome with unspecified morphologic changes; D89.89 Other specified disorders involving the immune mechanism, not elsewhere classified
CPT/HCPCS: 36415; 36592; 36600; 71045; 80048; 80053; 81001; 82550; 82805; 83605; 83690; 83735; 83880; 84145; 84484; 85014; 85018; 85025; 85610; 85730; 86038; 86160; 86256; 87040; 87633; 87797; 93005; 93010; 93307; 94660; 94762; 96361; 96365; 96368; 96375; 97163; 97530; 99285; 99291; J0696; J1642; J1940; J2060; J2543; J2919; J7613; P9041